=== PATIENT | female | born 2000 | race Asian ===

== ENCOUNTER → 2019-04-01 15:59 | Outpatient (CLI) | payer OTHER, SELFPAY | PROVIDERS: PCP Family Medicine; Visit Provider Physician Assistant | DX: J02.9 Acute pharyngitis, unspecified (principal) | CPT/HCPCS: 87070 ==

== ENCOUNTER → 2020-09-17 13:47 | Outpatient (CLI) | payer OTHER, SELFPAY ==
[2020-09-20 07:48] LABS: COVID19 Sendout Not Detected (Not Detect)
== END ==
PROVIDERS: PCP Family Medicine; Visit Provider Physician Assistant
DX: Z11.59 Encounter for screening for other viral diseases (principal)
CPT/HCPCS: 87635

== ENCOUNTER → 2021-03-04 13:54 | Outpatient (CLI) | payer OTHER, SELFPAY ==
[2021-03-04] MEDS: COVID-19 VACC #1, MRNA(MOD) 100 MCG/0.5 ML VIAL IM (14:04)
== END ==
PROVIDERS: PCP Family Medicine; Visit Provider Internal Medicine
DX: Z23 Encounter for immunization (principal)
CPT/HCPCS: 0011A; 91301

== ENCOUNTER → 2021-04-01 13:12 | Outpatient (CLI) | payer OTHER, SELFPAY ==
[2021-04-01] MEDS: COVID-19 VACC #2, MRNA(MOD) 100 MCG/0.5 ML VIAL IM (13:21)
== END ==
PROVIDERS: PCP Family Medicine; Visit Provider Internal Medicine
DX: Z23 Encounter for immunization (principal)
CPT/HCPCS: 0012A; 91301

== ENCOUNTER → 2021-09-01 15:14 | Outpatient (CLI) | payer OTHER, SELFPAY | PROVIDERS: Referring Provider Internal Medicine; Visit Provider Internal Medicine | DX: Z23 Encounter for immunization (principal) | CPT/HCPCS: 90471; 90686 ==

== ENCOUNTER 2021-11-22 20:19 | Emergency (ER) | payer OTHER, SELFPAY ==
[2021-11-22 20:29] VITALS: BP 124/78; PULSE 112; RESP 17; TEMP 36.2; O2SAT 98; BMI 44.2
[2021-11-22 21:05] LABS: UR Morphine/Opiate cutoff 300 Negative (Negative); Ur Creatinine Normal (Normal); Ur Specific Gravity Normal (Normal); Urine Amphetamines Negative (Negative); Urine Barbiturates Negative (Negative); Urine Benzodiazepines Negative (Negative); Urine Cocaine Negative (Negative); Urine MDMA Negative (Negative); Urine Methadone Negative (Negative); Urine Methamphetamines Negative (Negative); Urine Oxycodone Negative (Negative); Urine Phencyclidine Negative (Negative); Urine Tetrahydrocannabinol Negative (Negative); Urine Tricyclic Antidepressant Negative (Negative); Urine pH Normal (Normal)
[2021-11-22 21:07] LABS: Add Manual Diff / Slide Review NO; Basophils Absolute Auto 100 /uL (0-100); Basophils Percent Auto 0.4 % (0-2); Eosinophils Absolute Auto 100 /uL (0-450); Hematocrit 42.4 % (36-46); Hemoglobin 14.2 g/dL (12.0-16.0); Lymphocytes Absolute Auto 3700 /uL (1100-4500); Lymphocytes Percent Auto 26.5 % (25-40); Mean Corpuscular HGB Conc 33.5 % (30-36); Mean Corpuscular Volume 83.5 fL (80-100); Monocytes Absolute Auto 1000 /uL (0-900); Monocytes Percent Auto 6.9 % (3-14); Neutrophils Absolute Auto 9000 /uL (1500-7000); Neutrophils Percent Auto 65.2 % (50-75); Platelet Count 292 X10^3/uL (150-400); Red Blood Cell Count 5.08 X10^6/uL (4.0-5.2); Red Cell Distribution Width 13.9 % (11.6-14.8); White Blood Cell Count 13.8 X10^3/uL (4.5-11.0)
[2021-11-22 21:17] LABS: Acetaminophen < 10 ug/mL (10-30); Alanine Aminotransferase 23 IU/L (<35); Albumin 4.5 g/dL (3.5-5.0); Albumin Globulin Ratio 1.4 (1.0-2.8); Alkaline Phosphatase 78 U/L (38-126); Aspartate Aminotransferase 22 IU/L (14-36); BUN Creatinine Ratio 15.1 (6-22); Bilirubin Total 0.6 mg/dL (0.2-1.3); Blood Urea Nitrogen 13 mg/dL (7-17); Calcium 9.5 mg/dL (8.4-10.2); Carbon Dioxide 29 mmol/L (22-32); Chloride 102 mmol/L (98-107); Estimated Glomerular Filt Rate > 60.0 mL/min (>60); Ethanol (ETOH) < 10 mg/dL; Globulin 3.2 g/dL (1.7-4.1); Glucose 83 mg/dL (70-100); HEMOLYSIS < 15 (0-50); Potassium 4.2 mmol/L (3.4-5.1); Salicylate < 1.0 mg/dL (<20); Sodium 140 mmol/L (137-145); Total Protein 7.7 g/dL (6.3-8.2)
[2021-11-22 21:21] LABS: COVID19 -Nasal RAPID Negative (Negative)
[2021-11-22 21:51] LABS: Thyroid Stimulating Hormone 1.73 uIU/mL (0.47-4.68)
--- NOTE | 2021-11-22 22:02 | ED_ITS ---
HPI - Psych <Kb Parrish DO - Last Filed: 11/26/21 06:59> General Chief Complaint: Psychiatric Symptoms Stated Complaint: sent by physician for mental health Time Seen by Provider: 11/22/21 21:47 Source: patient Mode of arrival: Ambulatory History of Present Illness HPI Narrative: Patient is a 21-year-old female. Does have a history of depression. Arrives to the emergency department today for evaluation of worsening depression and suicidal ideation. She was sent by her provider. She states that over the past couple days there was an event that she would not specifically elaborate on that made her underlying issues worsen. She states that she does have a plan to kill herself and that would be to walk-in to the water or jump off of a bridge. She has tried to cut herself an attempt to hurt herself in the past. She denies any alcohol. Denies any change in medications. Denies any drugs. No marijuana. She has medications for her depression that she states she takes on a daily basis and then another medication that she takes as needed. According to her medication list she is on duloxetine daily. And has hydroxyzine to take as needed. She has been doing the hydroxyzine more often recently. She he is here voluntarily. She states that she does not feel safe at home and is seeking [facility] admission. Related Data Previous Rx's Medication Instructions Recorded hydroxyzine pamoate 25 mg capsule 25 mg PO BIDP PRN #15 cap 10/12/20 duloxetine 60 mg capsule,delayed 60 mg PO DAILY #90 cap 07/08/21 release Allergies Allergy/AdvReac Type Severity Reaction Status Date / Time No Known Drug Allergies Allergy Verified 09/30/21 11:02 Review of Systems <Kb Parrish DO - Last Filed: 11/26/21 06:59> Cardiovascular Cardiovascular: Reports system reviewed and no additional complaints, except as documented Respiratory Respiratory: Reports system reviewed and no additional complaints, except as documented Gastrointestinal Gastrointestinal: Reports system reviewed and no additional complaints, except as documented Psychiatric Psychiatric: Reports system reviewed and no additional complaints, except as documented Patient History <Kb Parrish DO - Last Filed: 11/26/21 06:59> Medical History Autism spectrum disorder Excessive daytime sleepiness Generalized anxiety disorder Major depressive disorder, recurrent, unspecified Morbid obesity with body mass index (BMI) of 40.0 to 49.9 Nocturnal hypoxemia Obstructive sleep apnea (~08/14/20) Snoring Social phobia Family History Father Loud snoring Mother Depression Anxiety Family/Other Loud snoring Sleep apnea Obesity Anxiety ADD (attention deficit disorder) Social History Smoking Status: Never smoker Smoking Status: Never smoker Substance Use Type: does not use Exam <Kb Parrish DO - Last Filed: 11/26/21 06:59> Initial Vital Signs Initial Vital Signs: Vital Signs Temperature 97.1 F L 11/22/21 20:29 Pulse Rate 112 H 11/22/21 20:29 Respiratory Rate 17 11/22/21 20:29 Blood Pressure 124/78 11/22/21 20:29 Pulse Oximetry 98 11/22/21 20:29 HENMT Head: normal to inspection and normocephalic Resp Effort & Inspection: normal respiratory effort Cardio Rate: regular rate Skin General: no rashes or lesions noted Neuro General: patient alert, patient awake, patient oriented x3 and moves all extremities Extrem General: normal to inspection Psych Appearance: grossly normal and well kempt Affect: sad Thought Content: suicidality <Edgar Jama MD - Last Filed: 11/28/21 12:34> Initial Vital Signs Initial Vital Signs: Vital Signs Temperature 97.1 F L 11/22/21 20:29 Pulse Rate 112 H 11/22/21 20:29 Respiratory Rate 17 11/22/21 20:29 Blood Pressure 124/78 11/22/21 20:29 Pulse Oximetry 98 11/22/21 20:29 <Koffi Arriaga DO - Last Filed: 11/24/21 05:05> Initial Vital Signs Initial Vital Signs: Vital Signs Temperature 97.1 F L 11/22/21 20:29 Pulse Rate 112 H 11/22/21 20:29 Respiratory Rate 17 11/22/21 20:29 Blood Pressure 124/78 11/22/21 20:29 Pulse Oximetry 98 11/22/21 20:29 Course <Kb Parrish DO - Last Filed: 11/26/21 06:59> Orders Ordered: Discontinued Medications Duloxetine HCl (Duloxetine 30 Mg Capsule) 60 mg PO DAILY [facility] Last Admin: 11/23/21 19:19 Dose: 60 mg Documented by: JUDITH Hydroxyzine Pamoate (Hydroxyzine Pamoate 25 Mg Capsule) 25 mg PO BID [facility] Last Admin: 11/23/21 20:58 Dose: Not Given Documented by: Admin: 11/23/21 19:19 Dose: 25 mg Documented by: JUDITH Vital Signs Vital signs: Vital Signs - 8 hr 11/23/21 00:26 Pulse Rate 78 Respiratory Rate 16 Blood Pressure 136/71 Pulse Oximetry 100 <Edgar Jama MD - Last Filed: 11/28/21 12:34> Course Course Narrative: 7:00 a.m.. Sign out from Dr. Parrish at this time awaiting social Work e valuation. Patient has been cooperative. No medications required overnight. Orders Ordered: Discontinued Medications Duloxetine HCl (Duloxetine 30 Mg Capsule) 60 mg PO DAILY [facility] Last Admin: 11/23/21 19:19 Dose: 60 mg Documented by: JUDITH Hydroxyzine Pamoate (Hydroxyzine Pamoate 25 Mg Capsule) 25 mg PO BID [facility] Last Admin: 11/23/21 20:58 Dose: Not Given Documented by: Admin: 11/23/21 19:19 Dose: 25 mg Documented by: JUDITH Vital Signs Vital signs: Vital Signs - 8 hr 11/23/21 00:26 Pulse Rate 78 Respiratory Rate 16 Blood Pressure 136/71 Pulse Oximetry 100 <Koffi Arriaga DO - Last Filed: 11/24/21 05:05> Course Course Narrative: 7:00 a.m.. Sign out from Dr. Parrish at this time awaiting social Work evaluation. Patient has been cooperative. No medications required overnight. 1800 (Bart) -received in sign-out from Dr. Jama. Awaiting placement at receiving psychiatric facility ([facility]). Resting comfortably, understands and agrees with the plan Orders Ordered: Discontinued Medications Duloxetine HCl (Duloxetine 30 Mg Capsule) 60 mg PO DAILY [facility] Last Admin: 11/23/21 19:19 Dose: 60 mg Documented by: JUDITH Hydroxyzine Pamoate (Hydroxyzine Pamoate 25 Mg Capsule) 25 mg PO BID [facility] Last Admin: 11/23/21 20:58 Dose: Not Given Documented by: Admin: 11/23/21 19:19 Dose: 25 mg Documented by: JUDITH Vital Signs Vital signs: Vital Signs - 8 hr 11/23/21 00:26 Pulse Rate 78 Respiratory Rate 16 Blood Pressure 136/71 Pulse Oximetry 100 MDM - Psych <Kb Parrish DO - Last Filed: 11/26/21 06:59> Medical Records Attestation: I reviewed the patient's medical records. Lab Data Result diagrams: 11/22/21 20:55 11/22/21 20:55 Labs: Lab Results 11/22/21 11/22/21 11/22/21 Range/Units 20:53 20:55 20:55 WBC 13.8 H (4.5-11.0) X10^3/uL RBC 5.08 (4.0-5.2) X10^6/uL Hgb 14.2 (12.0-16.0) g/dL Hct 42.4 (36-46) % MCV 83.5 (80-100) fL MCH 28.0 (26-34) PG MCHC 33.5 (30-36) % RDW 13.9 (11.6-14.8) % Plt Count 292 (150-400) X10^3/uL Neut % (Auto) 65.2 (50-75) % Lymph % (Auto) 26.5 (25-40) % [place] % (Auto) 6.9 (3-14) % Eos % (Auto) 1.0 L (2-4) % Baso % (Auto) 0.4 (0-2) % Neut # (Auto) 9000 H (1564-0290) /uL Lymph # (Auto) 3700 (4437-0643) /uL [place] # (Auto) 1000 H (0-900) /uL Eos # (Auto) 100 (0-450) /uL Baso # (Auto) 100 (0-100) /uL Sodium 140 (137-145) mmol/L Potassium 4.2 (3.4-5.1) mmol/L Chloride 102 (98-107) mmol/L Carbon Dioxide 29 (22-32) mmol/L BUN 13 (7-17) mg/dL Creatinine 0.86 (0.52-1.04) mg/dL Estimated GFR > 60.0 (>60) mL/min BUN/Creatinine Ratio 15.1 (6-22) Glucose 83 (70-100) mg/dL Calcium 9.5 (8.4-10.2) mg/dL Total Bilirubin 0.6 (0.2-1.3) mg/dL AST 22 (14-36) IU/L ALT 23 (<35) IU/L Alkaline Phosphatase 78 (38-126) U/L Total Protein 7.7 (6.3-8.2) g/dL Albumin 4.5 (3.5-5.0) g/dL Globulin 3.2 (1.7-4.1) g/dL Albumin/Globulin Ratio 1.4 (1.0-2.8) TSH (0.47-4.68) uIU/mL Free T4 (0.78-2.19) ng/dL Salicylates < 1.0 (<20) mg/dL U Opiates 300ng/mL cut Negative (Negative) Ur Oxycodone Screen Negative (Negative) Urine Methadone Screen Negative (Negative) Acetaminophen < 10 L (10-30) ug/mL Ur Barbiturates Screen Negative (Negative) U Tricyclic Antidepress Negative (Negative) Ur Phencyclidine Scrn Negative (Negative) Ur Amphetamines Screen Negative (Negative) U Methamphetamines Scrn Negative (Negative) Ur MDMA Scrn (Ecstasy) Negative (Negative) U Benzodiazepines Scrn Negative (Negative) Urine Cocaine Screen Negative (Negative) U Marijuana (THC) Screen Negative (Negative) Ethyl Alcohol < 10 ( - 10) mg/dL SARS-CoV-2 (PCR) (Negative) 11/22/21 11/22/21 Range/Units 20:55 20:55 WBC (4.5-11.0) X10^3/uL RBC (4.0-5.2) X10^6/uL Hgb (12.0-16.0) g/dL Hct (36-46) % MCV (80-100) fL MCH (26-34) PG MCHC (30-36) % RDW (11.6-14.8) % Plt Count (150-400) X10^3/uL Neut % (Auto) (50-75) % Lymph % (Auto) (25-40) % [place] % (Auto) (3-14) % Eos % (Auto) (2-4) % Baso % (Auto) (0-2) % Neut # (Auto) (7000-4311) /uL Lymph # (Auto) (3449-4865) /uL [place] # (Auto) (0-900) /uL Eos # (Auto) (0-450) /uL Baso # (Auto) (0-100) /uL Sodium (137-145) mmol/L Potassium (3.4-5.1) mmol/L Chloride (98-107) mmol/L Carbon Dioxide (22-32) mmol/L BUN (7-17) mg/dL Creatinine (0.52-1.04) mg/dL Estimated GFR (>60) mL/min BUN/Creatinine Ratio (6-22) Glucose (70-100) mg/dL Calcium (8.4-10.2) mg/dL Total Bilirubin (0.2-1.3) mg/dL AST (14-36) IU/L ALT (<35) IU/L Alkaline Phosphatase (38-126) U/L Total Protein (6.3-8.2) g/dL Albumin (3.5-5.0) g/dL Globulin (1.7-4.1) g/dL Albumin/Globulin Ratio (1.0-2.8) TSH 1.73 (0.47-4.68) uIU/mL Free T4 0.96 (0.78-2.19) ng/dL Salicylates (<20) mg/dL U Opiates 300ng/mL cut (Negative) Ur Oxycodone Screen (Negative) Urine Methadone Screen (Negative) Acetaminophen (10-30) ug/mL Ur Barbiturates Screen (Negative) U Tricyclic Antidepress (Negative) Ur Phencyclidine Scrn (Negative) Ur Amphetamines Screen (Negative) U Methamphetamines Scrn (Negative) Ur MDMA Scrn (Ecstasy) (Negative) U Benzodiazepines Scrn (Negative) Urine Cocaine Screen (Negative) U Marijuana (THC) Screen (Negative) Ethyl Alcohol ( - 10) mg/dL SARS-CoV-2 (PCR) Negative (Negative) Point of Care Testing Test Results Negative Urine Dip Bedside Urine Glucose Negative Bedside Urine Bilirubin - Negative Bedside Urine Ketone +/- 5 Urine Specific [place] 1.025 Bedside Urine Occult Blood - Negative Bedside Urine pH 6.0 Bedside Urine Protein - Negative Bedside Urine Urobilinogen - Negative Bedside Urine Nitrite - Negative Bedside Urine Leukocytes - Negative Esterase MDM Narrative Medical decision making narrative: Patient is medically cleared. Social Work consult placed. Patient is voluntary seeking admission. Patient stable overnight. No medications administered. Care turned over to Dr. Jama to follow-up and disposition. <Edgar Jama MD - Last Filed: 11/28/21 12:34> Lab Data Labs: Lab Results 11/22/21 11/22/21 11/22/21 Range/Units 20:53 20:55 20:55 WBC 13.8 H (4.5-11.0) X10^3/uL RBC 5.08 (4.0-5.2) X10^6/uL Hgb 14.2 (12.0-16.0) g/dL Hct 42.4 (36-46) % MCV 83.5 (80-100) fL MCH 28.0 (26-34) PG MCHC 33.5 (30-36) % RDW 13.9 (11.6-14.8) % Plt Count 292 (150-400) X10^3/uL Neut % (Auto) 65.2 (50-75) % Lymph % (Auto) 26.5 (25-40) % [place] % (Auto) 6.9 (3-14) % Eos % (Auto) 1.0 L (2-4) % Baso % (Auto) 0.4 (0-2) % Neut # (Auto) 9000 H (1539-9382) /uL Lymph # (Auto) 3700 (9747-0823) /uL [place] # (Auto) 1000 H (0-900) /uL Eos # (Auto) 100 (0-450) /uL Baso # (Auto) 100 (0-100) /uL Sodium 140 (137-145) mmol/L Potassium 4.2 (3.4-5.1) mmol/L Chloride 102 (98-107) mmol/L Carbon Dioxide 29 (22-32) mmol/L BUN 13 (7-17) mg/dL Creatinine 0.86 (0.52-1.04) mg/dL Estimated GFR > 60.0 (>60) mL/min BUN/Creatinine Ratio 15.1 (6-22) Glucose 83 (70-100) mg/dL Calcium 9.5 (8.4-10.2) mg/dL Total Bilirubin 0.6 (0.2-1.3) mg/dL AST 22 (14-36) IU/L ALT 23 (<35) IU/L Alkaline Phosphatase 78 (38-126) U/L Total Protein 7.7 (6.3-8.2) g/dL Albumin 4.5 (3.5-5.0) g/dL Globulin 3.2 (1.7-4.1) g/dL Albumin/Globulin Ratio 1.4 (1.0-2.8) TSH (0.47-4.68) uIU/mL Free T4 (0.78-2.19) ng/dL Salicylates < 1.0 (<20) mg/dL U Opiates 300ng/mL cut Negative (Negative) Ur Oxycodone Screen Negative (Negative) Urine Methadone Screen Negative (Negative) Acetaminophen < 10 L (10-30) ug/mL Ur Barbiturates Screen Negative (Negative) U Tricyclic Antidepress Negative (Negative) Ur Phencyclidine Scrn Negative (Negative) Ur Amphetamines Screen Negative (Negative) U Methamphetamines Scrn Negative (Negative) Ur MDMA Scrn (Ecstasy) Negative (Negative) U Benzodiazepines Scrn Negative (Negative) Urine Cocaine Screen Negative (Negative) U Marijuana (THC) Screen Negative (Negative) Ethyl Alcohol < 10 ( - 10) mg/dL SARS-CoV-2 (PCR) (Negative) 11/22/21 11/22/21 Range/Units 20:55 20:55 WBC (4.5-11.0) X10^3/uL RBC (4.0-5.2) X10^6/uL Hgb (12.0-16.0) g/dL Hct (36-46) % MCV (80-100) fL MCH (26-34) PG MCHC (30-36) % RDW (11.6-14.8) % Plt Count (150-400) X10^3/uL Neut % (Auto) (50-75) % Lymph % (Auto) (25-40) % [place] % (Auto) (3-14) % Eos % (Auto) (2-4) % Baso % (Auto) (0-2) % Neut # (Auto) (3265-0620) /uL Lymph # (Auto) (7739-9382) /uL [place] # (Auto) (0-900) /uL Eos # (Auto) (0-450) /uL Baso # (Auto) (0-100) /uL Sodium (137-145) mmol/L Potassium (3.4-5.1) mmol/L Chloride (98-107) mmol/L Carbon Dioxide (22-32) mmol/L BUN (7-17) mg/dL Creatinine (0.52-1.04) mg/dL Estimated GFR (>60) mL/min BUN/Creatinine Ratio (6-22) Glucose (70-100) mg/dL Calcium (8.4-10.2) mg/dL Total Bilirubin (0.2-1.3) mg/dL AST (14-36) IU/L ALT (<35) IU/L Alkaline Phosphatase (38-126) U/L Total Protein (6.3-8.2) g/dL Albumin (3.5-5.0) g/dL Globulin (1.7-4.1) g/dL Albumin/Globulin Ratio (1.0-2.8) TSH 1.73 (0.47-4.68) uIU/mL Free T4 0.96 (0.78-2.19) ng/dL Salicylates (<20) mg/dL U Opiates 300ng/mL cut (Negative) Ur Oxycodone Screen (Negative) Urine Methadone Screen (Negative) Acetaminophen (10-30) ug/mL Ur Barbiturates Screen (Negative) U Tricyclic Antidepress (Negative) Ur Phencyclidine Scrn (Negative) Ur Amphetamines Screen (Negative) U Methamphetamines Scrn (Negative) Ur MDMA Scrn (Ecstasy) (Negative) U Benzodiazepines Scrn (Negative) Urine Cocaine Screen (Negative) U Marijuana (THC) Screen (Negative) Ethyl Alcohol ( - 10) mg/dL SARS-CoV-2 (PCR) Negative (Negative) Point of Care Testing Test Results Negative Urine Dip Bedside Urine Glucose Negative Bedside Urine Bilirubin - Negative Bedside Urine Ketone +/- 5 Urine Specific [place] 1.025 Bedside Urine Occult Blood - Negative Bedside Urine pH 6.0 Bedside Urine Protein - Negative Bedside Urine Urobilinogen - Negative Bedside Urine Nitrite - Negative Bedside Urine Leukocytes - Negative Esterase <Koffi Arriaga DO - Last Filed: 11/24/21 05:05> Lab Data Labs: Lab Results 11/22/21 11/22/21 11/22/21 Range/Units 20:53 20:55 20:55 WBC 13.8 H (4.5-11.0) X10^3/uL RBC 5.08 (4.0-5.2) X10^6/uL Hgb 14.2 (12.0-16.0) g/dL Hct 42.4 (36-46) % MCV 83.5 (80-100) fL MCH 28.0 (26-34) PG MCHC 33.5 (30-36) % RDW 13.9 (11.6-14.8) % Plt Count 292 (150-400) X10^3/uL Neut % (Auto) 65.2 (50-75) % Lymph % (Auto) 26.5 (25-40) % [place] % (Auto) 6.9 (3-14) % Eos % (Auto) 1.0 L (2-4) % Baso % (Auto) 0.4 (0-2) % Neut # (Auto) 9000 H (1033-1106) /uL Lymph # (Auto) 3700 (2554-1609) /uL [place] # (Auto) 1000 H (0-900) /uL Eos # (Auto) 100 (0-450) /uL Baso # (Auto) 100 (0-100) /uL Sodium 140 (137-145) mmol/L Potassium 4.2 (3.4-5.1) mmol/L Chloride 102 (98-107) mmol/L Carbon Dioxide 29 (22-32) mmol/L BUN 13 (7-17) mg/dL Creatinine 0.86 (0.52-1.04) mg/dL Estimated GFR > 60.0 (>60) mL/min BUN/Creatinine Ratio 15.1 (6-22) Glucose 83 (70-100) mg/dL Calcium 9.5 (8.4-10.2) mg/dL Total Bilirubin 0.6 (0.2-1.3) mg/dL AST 22 (14-36) IU/L ALT 23 (<35) IU/L Alkaline Phosphatase 78 (38-126) U/L Total Protein 7.7 (6.3-8.2) g/dL Albumin 4.5 (3.5-5.0) g/dL Globulin 3.2 (1.7-4.1) g/dL Albumin/Globulin Ratio 1.4 (1.0-2.8) TSH (0.47-4.68) uIU/mL Free T4 (0.78-2.19) ng/dL Salicylates < 1.0 (<20) mg/dL U Opiates 300ng/mL cut Negative (Negative) Ur Oxycodone Screen Negative (Negative) Urine Methadone Screen Negative (Negative) Acetaminophen < 10 L (10-30) ug/mL Ur Barbiturates Screen Negative (Negative) U Tricyclic Antidepress Negative (Negative) Ur Phencyclidine Scrn Negative (Negative) Ur Amphetamines Screen Negative (Negative) U Methamphetamines Scrn Negative (Negative) Ur MDMA Scrn (Ecstasy) Negative (Negative) U Benzodiazepines Scrn Negative (Negative) Urine Cocaine Screen Negative (Negative) U Marijuana (THC) Screen Negative (Negative) Ethyl Alcohol < 10 ( - 10) mg/dL SARS-CoV-2 (PCR) (Negative) 11/22/21 11/22/21 Range/Units 20:55 20:55 WBC (4.5-11.0) X10^3/uL RBC (4.0-5.2) X10^6/uL Hgb (12.0-16.0) g/dL Hct (36-46) % MCV (80-100) fL MCH (26-34) PG MCHC (30-36) % RDW (11.6-14.8) % Plt Count (150-400) X10^3/uL Neut % (Auto) (50-75) % Lymph % (Auto) (25-40) % [place] % (Auto) (3-14) % Eos % (Auto) (2-4) % Baso % (Auto) (0-2) % Neut # (Auto) (1109-1867) /uL Lymph # (Auto) (3597-2197) /uL [place] # (Auto) (0-900) /uL Eos # (Auto) (0-450) /uL Baso # (Auto) (0-100) /uL Sodium (137-145) mmol/L Potassium (3.4-5.1) mmol/L Chloride (98-107) mmol/L Carbon Dioxide (22-32) mmol/L BUN (7-17) mg/dL Creatinine (0.52-1.04) mg/dL Estimated GFR (>60) mL/min BUN/Creatinine Ratio (6-22) Glucose (70-100) mg/dL Calcium (8.4-10.2) mg/dL Total Bilirubin (0.2-1.3) mg/dL AST (14-36) IU/L ALT (<35) IU/L Alkaline Phosphatase (38-126) U/L Total Protein (6.3-8.2) g/dL Albumin (3.5-5.0) g/dL Globulin (1.7-4.1) g/dL Albumin/Globulin Ratio (1.0-2.8) TSH 1.73 (0.47-4.68) uIU/mL Free T4 0.96 (0.78-2.19) ng/dL Salicylates (<20) mg/dL U Opiates 300ng/mL cut (Negative) Ur Oxycodone Screen (Negative) Urine Methadone Screen (Negative) Acetaminophen (10-30) ug/mL Ur Barbiturates Screen (Negative) U Tricyclic Antidepress (Negative) Ur Phencyclidine Scrn (Negative) Ur Amphetamines Screen (Negative) U Methamphetamines Scrn (Negative) Ur MDMA Scrn (Ecstasy) (Negative) U Benzodiazepines Scrn (Negative) Urine Cocaine Screen (Negative) U Marijuana (THC) Screen (Negative) Ethyl Alcohol ( - 10) mg/dL SARS-CoV-2 (PCR) Negative (Negative) Point of Care Testing Test Results Negative Urine Dip Bedside Urine Glucose Negative Bedside Urine Bilirubin - Negative Bedside Urine Ketone +/- 5 Urine Specific [place] 1.025 Bedside Urine Occult Blood - Negative Bedside Urine pH 6.0 Bedside Urine Protein - Negative Bedside Urine Urobilinogen - Negative Bedside Urine Nitrite - Negative Bedside Urine Leukocytes - Negative Esterase <Koffi Arriaga DO - Last Filed: 11/24/21 05:05> Critical Care Time Critical Care Time: Yes Total Critical Care Time: 45 Attestation: The high probability of a clinically significant, sudden or life threatening deterioration of the [Psych] system(s) required my full and direct attention, intervention and personal management. The aggregate critical care time was [45] minutes. This time is in addition to time spent performing reported procedures but includes the following: [x] Data Review and interpretation [x] Patient assessment and monitoring of vital signs [x] Documentation [x] Medication orders and management Discharge Plan Departure Patient Disposition: Xfer Psychiatric Hosp Clinical Impression: Suicidal ideation
--- NOTE | 2021-11-22 22:34 | PC.NURSE ---
friend at bedside
[2021-11-22 22:40] LABS: Free T4, Direct Thyroxine 0.96 ng/dL (0.78-2.19)
--- NOTE | 2021-11-22 23:19 | PC.NURSE ---
friend at bedside
[2021-11-23 00:26] VITALS: BP 136/71; PULSE 78; RESP 16; O2SAT 100
--- NOTE | 2021-11-23 02:19 | PC.NURSE ---
pt sleeping. friend still at bedside
[2021-11-23 10:21] VITALS: BP 95/51; PULSE 18; RESP 16; TEMP 35.7; O2SAT 96
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
--- NOTE | 2021-11-23 17:36 | PC.NURSE ---
lying in the bed flat, looking at cell phone.
[2021-11-23 18:48] VITALS: BP 102/73; PULSE 83; RESP 18; TEMP 36.8; O2SAT 98
[2021-11-23] MEDS: hydrOXYzine pamoate 25 MG CAPSULE PO (19:19)
[2021-11-23] MEDS: DULOXETINE 30 MG CAPSULE 60 MG PO (19:19)
--- NOTE | 2021-11-23 19:57 | PC.NURSE ---
Patient currently visiting with close friend
== END 2021-11-23 22:35 ==
PROVIDERS: Emergency Medicine; Emergency Provider Emergency Medicine
DX: R45.851 Suicidal ideations (principal); Z20.822 Contact with and (suspected) exposure to COVID-19
CPT/HCPCS: 36415; 80053; 80305; 80320; 80329; 81003; 81025; 84439; 84443; 85025; 87635; 99284; 99291; C9803; G0480

== ENCOUNTER → 2022-11-28 13:57 | Outpatient (CLI) | payer OTHER, SELFPAY ==
[2022-11-28 14:25] LABS: Add Manual Diff / Slide Review NO; Basophils Absolute Auto 100 /uL (0-100); Basophils Percent Auto 0.7 % (0-2); Eosinophils Absolute Auto 300 /uL (0-450); Eosinophils Percent Auto 2.7 % (2-4); Hematocrit 39.8 % (36-46); Hemoglobin 13.4 g/dL (12.0-16.0); Lymphocytes Absolute Auto 2800 /uL (1100-4500); Lymphocytes Percent Auto 29.4 % (25-40); Mean Corpuscular HGB Conc 33.6 % (30-36); Mean Corpuscular Hemoglobin 27.7 PG (26-34); Mean Corpuscular Volume 82.3 fL (80-100); Monocytes Absolute Auto 500 /uL (0-900); Monocytes Percent Auto 5.1 % (3-14); Neutrophils Absolute Auto 5900 /uL (1500-7000); Neutrophils Percent Auto 62.1 % (50-75); Platelet Count 265 X10^3/uL (150-400); Red Blood Cell Count 4.84 X10^6/uL (4.0-5.2); Red Cell Distribution Width 13.6 % (11.6-14.8); White Blood Cell Count 9.5 X10^3/uL (4.5-11.0)
[2022-11-28 14:41] LABS: Alanine Aminotransferase 24 IU/L (<35); Alkaline Phosphatase 82 U/L (38-126); Aspartate Aminotransferase 23 IU/L (14-36); BUN Creatinine Ratio 17.6 (6-22); Bilirubin Total 0.5 mg/dL (0.2-1.3); Blood Urea Nitrogen 13 mg/dL (7-17); Calcium 8.6 mg/dL (8.4-10.2); Carbon Dioxide 27 mmol/L (22-32); Chloride 101 mmol/L (98-107); Cholesterol 160 mg/dL (140-199); Estimated Glomerular Filt Rate > 60 mL/min (>60); Glucose 91 mg/dL (70-100); HDL Cholesterol 44 mg/dL (40-60); HEMOLYSIS < 15 (0-50); LDL Cholesterol Calculated 81 mg/dL (<100); Potassium 4.3 mmol/L (3.4-5.1); Sodium 137 mmol/L (137-145); Total Protein 7.5 g/dL (6.3-8.2); Triglycerides 174 mg/dL (35-150)
[2022-11-28 15:09] LABS: Thyroid Stimulating Hormone 1.09 uIU/mL (0.47-4.68)
[2022-12-01 16:31] LABS: Albumin 4.3 g/dL (3.5-5.0); Albumin Globulin Ratio 1.3 (1.0-2.8); Globulin 3.2 g/dL (1.7-4.1)
== END ==
PROVIDERS: PCP Family Medicine; Referring Provider Family Medicine; Visit Provider Family Medicine
DX: F33.2 Major depressive disorder, recurrent severe without psychotic features (principal); F41.1 Generalized anxiety disorder; F40.10 Social phobia, unspecified; Z13.220 Encounter for screening for lipoid disorders; Z13.29 Encounter for screening for other suspected endocrine disorder; Z79.899 Other long term (current) drug therapy
CPT/HCPCS: 36415; 80053; 80061; 84443; 85025; 90834

== ENCOUNTER → 2023-09-14 12:15 | Outpatient (CLI) | payer OTHER, SELFPAY | PROVIDERS: Referring Provider Family Medicine; Visit Provider Family Medicine | DX: Z23 Encounter for immunization (principal) | CPT/HCPCS: 90471; 90686 ==

== ENCOUNTER → 2023-12-04 18:49 | Outpatient (CLI) | payer OTHER, SELFPAY | PROVIDERS: Visit Provider Nurse Practitioner Family | DX: J02.9 Acute pharyngitis, unspecified (principal) | CPT/HCPCS: 87070 ==

== ENCOUNTER → 2023-12-28 15:48 | Outpatient (CLI) | payer OTHER, SELFPAY ==
[2023-12-28 16:22] LABS: Add Manual Diff / Slide Review NO; Basophils Absolute Auto 100 /uL (0-100); Basophils Percent Auto 0.8 % (0-2); Eosinophils Absolute Auto 400 /uL (0-450); Eosinophils Percent Auto 4.5 % (2-4); Hematocrit 40.5 % (36-46); Hemoglobin 13.6 g/dL (12.0-16.0); Lymphocytes Absolute Auto 3000 /uL (1100-4500); Lymphocytes Percent Auto 33.2 % (25-40); Mean Corpuscular HGB Conc 33.6 % (30-36); Mean Corpuscular Hemoglobin 27.4 PG (26-34); Mean Corpuscular Volume 81.5 fL (80-100); Monocytes Absolute Auto 300 /uL (0-900); Monocytes Percent Auto 3.9 % (3-14); Neutrophils Absolute Auto 5200 /uL (1500-7000); Neutrophils Percent Auto 57.6 % (50-75); Platelet Count 294 X10^3/uL (150-400); Red Blood Cell Count 4.96 X10^6/uL (4.0-5.2); Red Cell Distribution Width 13.5 % (11.6-14.8)
[2023-12-28 17:30] LABS: Hemoglobin A1C% w Est Avg Glu 5.2 % (4.0-6.0)
[2023-12-28 17:57] LABS: Alanine Aminotransferase 23 IU/L (<35); Albumin 3.9 g/dL (3.5-5.0); Albumin Globulin Ratio 1.1 (1.0-2.8); Alkaline Phosphatase 86 U/L (38-126); Aspartate Aminotransferase 24 IU/L (14-36); BUN Creatinine Ratio 12.3 (6-22); Bilirubin Total 0.6 mg/dL (0.2-1.3); Blood Urea Nitrogen 9 mg/dL (7-17); Calcium 8.7 mg/dL (8.4-10.2); Carbon Dioxide 29 mmol/L (22-32); Chloride 103 mmol/L (98-107); Cholesterol 162 mg/dL (140-199); Estimated Glomerular Filt Rate > 60 mL/min (>60); Globulin 3.5 g/dL (1.7-4.1); Glucose 93 mg/dL (70-100); HDL Cholesterol 40 mg/dL (40-60); HEMOLYSIS < 15 (0-50); LDL Cholesterol Calculated 85 mg/dL (<100); Potassium 4.1 mmol/L (3.4-5.1); Sodium 139 mmol/L (137-145); Total Protein 7.4 g/dL (6.3-8.2); Triglycerides 186 mg/dL (35-150)
== END ==
LOC: LAB 15:49
PROVIDERS: PCP Family Medicine; Referring Provider Family Medicine; Visit Provider Family Medicine
DX: F33.2 Major depressive disorder, recurrent severe without psychotic features (principal); E66.01 Morbid (severe) obesity due to excess calories
CPT/HCPCS: 36415; 80053; 80061; 83036; 84443; 85025

== ENCOUNTER → 2024-01-04 13:16 | Outpatient (CLI) | payer OTHER, SELFPAY ==
[2024-01-04 16:22] LABS: Urine N gonorrhoeae NOT DETECTED
[2024-01-04 16:26] LABS: Urine Chlamydia NOT DETECTED
[2024-01-06 04:39] LABS: RPR Screen Non Reactive (Non Reactive)
[2024-01-07 19:47] LABS: HIV 1 & 2 Ab/Ag 4th Gen Combo NEGATIVE (NEGATIVE); Hep C Virus Ab w/Reflex Quant NEGATIVE s/c (NEGATIVE)
== END ==
PROVIDERS: PCP Family Medicine; Referring Provider Family Medicine; Visit Provider Family Medicine
DX: Z72.51 High risk heterosexual behavior (principal)
CPT/HCPCS: 36415; 86592; 86803; 87389; 87491; 87591

== ENCOUNTER → 2024-02-04 10:13 | Outpatient (CLI) | payer OTHER, SELFPAY ==
--- NOTE | 2024-02-04 10:14 | DI.US.S_ITS ---
PROCEDURE: US PELVIC COMPLETE INDICATIONS: DYSPARUNIA TECHNIQUE: Real-time scanning was performed of the pelvic organs, with image documentation. Additional endovaginal scanning was necessary due to incomplete visualization of the adnexal and endometrial structures by transabdominal scanning. COMPARISON: None. FINDINGS: Uterus: Uterus is anteverted and normal in size at 5.4 x 2.4 x 3.7 cm. The myometrium is homogeneous. The endometrium measures 6.3 mm combined thickness. No increased vascular flow by color Doppler imaging. Ovaries: The right ovary measures 2.8 x 2.2 x 2.6 cm, with a calculated ovarian volume of 8.1 cc. The left ovary measures 2.2 x 2.3 x 1.8 cm, with a calculated ovarian volume of 4.5 cc. Normal right ovarian follicular echotexture. Single 1.4 cm dominant follicle in the left ovary. No adnexal masses are seen. Other: No pathologic free abdominal or pelvic fluid. IMPRESSION: Normal pelvic ultrasound. We strive to produce accurate, complete, and clear reports of imaging services. To assist us in improving patient care, this report was composed using standard report templates and voice recognition software. Therefore, it may contain abnormal punctuation, insertions and/or omissions. Occasional wrong-word or sound-alike substitutions may occur. Though we review the report and make efforts to correct it, we do recommend that the report be read carefully in proper context to recognize any text inaccuracies. Dictated by: Yakelin Kiran M.D. on 02/04/2024 at 11:59 Approved by: Yakelin Kiran M.D. on 02/04/2024 at 12:01
== END ==
PROVIDERS: PCP Family Medicine; Referring Provider Family Medicine; Visit Provider Family Medicine
DX: R10.2 Pelvic and perineal pain (principal)
CPT/HCPCS: 76830; 76856

== ENCOUNTER → 2024-04-15 15:31 | Outpatient (CLI) | payer OTHER, SELFPAY ==
--- NOTE | 2024-04-15 15:32 | DI.RAD.S_ITS ---
PROCEDURE: XR KNEE LT 3V INDICATIONS: anterolateral joint pain/tenderness 2 months TECHNIQUE: 3 views of the knee were acquired. COMPARISON: None. FINDINGS: Bones: No displaced fracture or dislocation. Soft tissues: There might be a knee joint effusion. IMPRESSION: No acute osseous abnormality. Possible knee joint effusion. If there is high concern for further derangement, consider MRI evaluation. Dictated by: Theo Mathur M.D. on 04/15/2024 at 16:49 Approved by: Theo Mathur M.D. on 04/15/2024 at 16:50
== END ==
PROVIDERS: PCP Family Medicine; Referring Provider Student in an Organized Health Care Education/Training Program; Visit Provider Student in an Organized Health Care Education/Training Program
DX: S83.92XA Sprain of unspecified site of left knee, initial encounter (principal); X58.XXXA Exposure to other specified factors, initial encounter
CPT/HCPCS: 73562

== ENCOUNTER → 2024-06-19 13:01 | Outpatient (CLI) | payer OTHER, SELFPAY ==
--- NOTE | 2024-06-19 13:03 | DI.RAD.S_ITS ---
PROCEDURE: XR ANKLE LT MIN 3V INDICATIONS: pain after fall TECHNIQUE: 3 views of the ankle were acquired. COMPARISON: None. FINDINGS: Bones: Bone alignment is normal. No acute dislocation. Along the tip of the medial malleolus this is a small avulsion fracture. Margins are irregular in this region indicating an acute process. Soft tissues: Soft tissue swelling noted the ankle. IMPRESSION: Small avulsion fracture of the tip of the medial malleolus. Dictated by: aPul Mclean M.D. on 06/19/2024 at 13:33 Approved by: Paul Mclean M.D. on 06/19/2024 at 13:36
--- NOTE | 2024-06-19 13:03 | DI.RAD.S_ITS ---
PROCEDURE: XR KNEE LT 3V INDICATIONS: pain after fall TECHNIQUE: 3 views of the knee were acquired. COMPARISON: [facility], CR, XR KNEE LT 3V, 04/15/2024, 14:51. FINDINGS: Bones: No fractures or dislocations. No suspicious bony lesions. Soft tissues: No joint effusion. No suspicious soft tissue calcifications. IMPRESSION: No acute bony abnormality. Dictated by: Paul Mclean M.D. on 06/19/2024 at 13:36 Approved by: Paul Mclean M.D. on 06/19/2024 at 13:39
== END ==
PROVIDERS: Family Provider Family Medicine; PCP Family Medicine; Referring Provider Physician Assistant Medical; Visit Provider Physician Assistant Medical
DX: S82.52XA Displaced fracture of medial malleolus of left tibia, initial encounter for closed fracture (principal); S89.92XA Unspecified injury of left lower leg, initial encounter; M25.579 Pain in unspecified ankle and joints of unspecified foot; W19.XXXA Unspecified fall, initial encounter
CPT/HCPCS: 73562; 73610

== ENCOUNTER 2024-09-03 11:30 | Outpatient (RCR) | payer OTHER, SELFPAY ==
--- NOTE | 2024-07-25 15:55 | PT.OIE ---
Current Diagnoses Pain in left knee (07/25/24) Unspecified dyspareunia (07/25/24) Other lack of coordination (07/25/24) Weakness (07/25/24) Unspecified injury of left lower leg, subsequent encounter (07/25/24) Past Medical History (Last Reviewed 04/15/24 @ 19:24 by Fang Winters PA-C) Autism spectrum disorder Excessive daytime sleepiness Generalized anxiety disorder LGSIL (low grade squamous intraepithelial dysplasia) Major depressive disorder, recurrent, unspecified Morbid obesity with body mass index (BMI) of 40.0 to 49.9 Nocturnal hypoxemia Obstructive sleep apnea (~08/14/20) Popping of both knee joints Snoring Social phobia Visit Care Team Role Provider Type Diamond Plascencia MD Attending Provider Physician Family Provider Primary Care Provider Referring Provider Specialty: Family Practice TABLE WORKER PACKAGER Address: [address] [place] [address] Email: [email or web address] Physical Therapy Initial Evaluation PT-OP-A Visit Information Start: 07/25/24 07:25 Freq: Status: Active Protocol: Document 07/25/24 10:33 NM (Rec: 07/25/24 16:22 NM [id number]) Out-Patient Physical Therapy Visit Information Visit Information Visit Type Initial Evaluation Visit Start Time 10:35 Visit Stop Time 11:15 Visit Number 60 Evaluation Information Evaluation Date 07/25/24 Precautions Precautions Hx of anxiety and depression PT-OP-B Current Condition Start: 07/25/24 07:25 Freq: Status: Active Protocol: Document 07/25/24 10:33 NM (Rec: 07/25/24 11:23 NM [id number]) Current Condition History of Current Condition Onset Date June 2024 History of Current Condition Pt presents with L knee pain. She reports pain with going up stairs, squatting, possible feeling like it will give out. She had a soccer injury a few weeks ago/a month ago (in June); she reports that she twisted her knee, then fell. States unable immediately weight bear. She went to the ED, did Xray and states all was fine. She reports that she was put on crutches and wore a brace (stabilization brace extension). She also reports that she had a second injury while dancing to music as few weeks later, when she stood on her L leg while kicking with her R leg, when she fell. She reports that she suddenly fell but does not know if it buckled/gave out. States that she walked using crutches and went to walk in clinic, but told to ice and rest. Pt is unsure when she stopped wearing the brace; she stopped wearing the brace/using crutches after about a week or two. Had both L knee and ankle Xray. States that MD told her she had a small fracture to very tip of medial malleolus, told to stay off of it but not given boot; reports not painful. Pt reports that she has not had a MRI or any further assessment . Pt reports that she has crackling in her knee (non- painful), no clicking/popping/ clicking/buckling. Reports that occasionally her L leg locks up when walking up stairs, but states quickly resolves without pain or other limitations. No pain when getting up from a chair, walking, standing. No pain with twisting motion in knee. Pt reports that she is unable to work due to pain, states nervous to do work. Pt reports that she has had knee pain even before her original JOSE ANTONIO, at least a year. States that her pain originally began when she extended it while walking , clicked, and it hurt for while; states went away. Thinks that it is because of her weight. States not performing any regular exercise Prior Treatments and Tests L knee radiograph 07/05: no acute bony abnormality L knee radiograph 05/05: no acute osseous abnormality, possible knee joint effusion L ankle radiograph 07/05: small avulsion fracture of the tip of the medial malleolus No previous PT for any condition Treatment Goals Patient/Caregiver Goals knee pain decreased PT-OP-C Subjective Start: 07/25/24 07:25 Freq: Status: Active Protocol: Document 07/25/24 10:33 NM (Rec: 07/25/24 11:23 NM [id number]) OP-PT Subjective Patient Comments Patient Comments pt agrees to participate in evaluation Patient Questionnaires Lower Extremity Functional Scale LEFS Score 47/80 OP-PT Pain Assessment Location L knee Pain Location Details anterior knee Intensity 3 Scale Used Numeric (0 - 10) Description Aching,Dull Frequency Occasional Pain Duration seconds Pain Aggravating Factors Standing,Stair Climbing Pain Alleviating Factors Rest PT-OP-D Balance Start: 07/25/24 07:25 Freq: Status: Active Protocol: Document 07/25/24 10:33 NM (Rec: 07/25/24 11:23 NM [id number]) Balance Tests Single Limb Standing Single Limb- Right 20 sec Single Limb- Left 5 sec (reports mild ankle pain 1/10 w/ stance) PT-OP-E Functional Tests Start: 07/25/24 07:25 Freq: Status: Active Protocol: Document 07/25/24 10:33 NM (Rec: 07/25/24 11:23 NM [id number]) Functional Tests Squat Test Score 10 Comments inc ant translation PT-OP-F Manual Assessment Start: 07/25/24 07:25 Freq: Status: Active Protocol: Document 07/25/24 10:33 NM (Rec: 07/25/24 16:22 NM [id number]) Manual Assessments Soft Tissue Assessment Soft Tissue Mobility Assessment Decreased hamstring length and heel cord length B, L>R Joint Mobility Assessment Joint Mobility Assessment Hypermobility of B knees (R>L) . Audible and palpable crepitus B. B patella located laterally, demos lateral tracking Other Manual Assessments Other Manual Assessments No palpation along L medial or lateral malleolus or along 5th metatarsal or 1st metatarsal and navicular bone No sharp pain or increased discomfort with vibration testing along L ankle/foot bony prominences and L patella PT-OP-G Mobility & Gait Start: 07/25/24 07:25 Freq: Status: Active Protocol: Document 07/25/24 10:33 NM (Rec: 07/25/24 16:22 NM [id number]) OP Gait Assessment Gait Distance (Feet) 180 Gait Deviations General Gait Pattern Wide Based Gait Factors Limiting Gait Function Factors Limiting Gait Function Decreased Activity Tolerance, Decreased Strength,Limited Range of Motion,Poor Balance Comments Gait Comments Mild decrease in stance time on LLE, no pain reported. Demos wide based stance and gait, with B hip ER and slight pronation bilaterally Stair Climbing Evaluation Evaluation Level of Assist On Stairs Independent Devices Stair Climbing Assistive Devices None Technique/Endurance Stair Climbing Direction Ascend and Descend Stair Climbing Technique Step Over Step Number of Steps Climbed 4 Stair Climbing Set # Repetitions (reps) 2 Comments Stair Climbing Comments Mild pain reported in L anterior knee and stiffness in L ankle anteriorly. Demos knee valgus, decreased tibial translation forward and decreased ankle dorsiflexion PT-OP-J Posture/Palpation/Skin Start: 07/25/24 07:25 Freq: Status: Active Protocol: Document 07/25/24 10:33 NM (Rec: 07/25/24 16:22 NM [id number]) Posture Evaluation Position Standing Head/C-Spine Posture Forward Head Arm Posture (L) Internally Rotated,(R) Internally Rotated Pelvis Posture Anteriorly Tilted Weight Distribution Weight Shifted Right Hip Posture (L) Externally Rotated,(R) Externally Rotated Knee Posture (L) Genu Valgus,(R) Genu Valgus Patellar Posture (L) Superior,(R) Superior,(L) Laterally Tilted,(R) Laterally Tilted Ankle/Foot Posture (L) Pronated,(R) Pronated Comments Posture Comments B hyperextension of knees Palpation Assessment Location L knee Palpation Details No joint line tenderness No tenderness along patella, with patellar mobility, along patellar and quad tendons, MCL , LCL, fibular head Increased tenderness and tightness along lateral distal hamstring Tightness along L quad PT-OP-K Range of Motion Start: 07/25/24 07:25 Freq: Status: Active Protocol: Document 07/25/24 10:33 NM (Rec: 07/25/24 11:23 NM [id number]) Knee Goniometric Range of Motion Knee Right Flexion Active (degrees) 125 Hyper-Extension Active 1 Left Flexion Active (degrees) 122 Extension Active (degrees) 5 Ankle and Foot Goniometric Range of Motion Ankle and Foot Right Plantarflexion 45 Inversion 30 Eversion 15 Comments neutral dorsiflexion Left Plantarflexion 45 Inversion 20 Eversion 20 Comments 2 deg under neutral dorsiflexion no pain with AROM PT-OP-L Special Tests Start: 07/25/24 07:25 Freq: Status: Active Protocol: Document 07/25/24 10:33 NM (Rec: 07/25/24 11:23 NM [id number]) Special Tests Knee Special Tests Varus Test Results - Comments 0 and 25 deg compared to LLE Valgus Test Results - Comments 0 and 25 deg compared to RLE Posterior Sag Test Results - Posterior Drawer Test Results - Anterior Drawer Test Results - Canelo's Test Results - Thessaly Test Test Results - Apley's Compression Test Results - Yancy Test Test Results + Comments clicking but not painful PT-OP-M Strength Start: 07/25/24 07:25 Freq: Status: Active Protocol: Document 07/25/24 10:33 NM (Rec: 07/25/24 11:23 NM [id number]) Hip Strength Hip Manual Muscle Testing Right Flexion (L2) 4- Good- Extension (S1) 4- Good- Abduction 4- Good- Adduction 4 Good External Rotation 4- Good- Internal Rotation 4- Good- Left Flexion (L2) 4- Good- Extension (S1) 3+ Fair+ Abduction 3+ Fair+ Adduction 4 Good External Rotation 4- Good- Internal Rotation 4- Good- Knee Strength Knee Manual Muscle Testing Right Flexion (S2) 4+ Good+ Extension (L3) 4+ Good+ Left Flexion (S2) 4- Good- Extension (L3) 4- Good- Comments No pain with resisted testing Ankle/Foot Strength Ankle and Foot Manual Muscle Testing Right Dorsiflexion (L4) 4+ Good+ Plantarflexion (S1) 4 Good Inversion 4+ Good+ Eversion (S1) 4+ Good+ Comments Plantarflexion: 5 heel raises single leg Left Dorsiflexion (L4) 4+ Good+ Plantarflexion (S1) 3 Fair Inversion 4 Good Eversion (S1) 4 Good Comments no pain with resisted inversion Plantarflexion: 3 single leg heel raises, no pain, just weaker PT-OP-T Assessment and Plan Start: 07/25/24 07:25 Freq: Status: Active Protocol: Document 07/25/24 10:33 NM (Rec: 07/25/24 16:22 NM [id number]) Physical Therapy Assessment Rehab Potential Rehabilitation Potential Good Evaluation Complexity Number of Personal Factors/Comorbidities 1-2 Number of Body Systems Impaired 1-2 Clinical Presentation at Evaluation Stable Impairments Impairments Activity Tolerance,Balance, Functional Activities, Functional Mobility,Gait,Pain, Posture,ROM,Soft Tissue Mobility,Strength,Transfers Other Concerns Barriers to Rehabilitation Pt states that she is actively looking for employment; thus, she is wanting fewer visits because she will need to be finished in August Goals Four Impairment HEP Short Term Goal (STG) Pt will report compliance with HEP 3x/wk in order to maximize progression with PT and to improve symptom management STG Duration 3 weeks Staffing And Scheduling Coordinator Goal (LTG) Pt will report compliance with HEP 3x/wk in order to promote compliance with maintenance program and to encourage better activity habits LTG Duration 6 weeks Three Impairment stairs Staffing And Scheduling Coordinator Goal (LTG) Pt will report that she has <3 /10 L knee pain when performing at least 12 stairs in order to demonstrate improved knee strength, flexibility, and symptom management LTG Duration 6 week Two Impairment squat Short Term Goal (STG) Pt will be educated on improved squat form and be able to demonstrate at least 10 B squats with <3/10 pain in L knee STG Duration 3 weeks Staffing And Scheduling Coordinator Goal (LTG) Pt will be able to perform at least 10 B squats with resistance without increase in L knee pain in order to demonstrate improved strength and functional mobility for transfers LTG Duration 6 weeks One Impairment LEFS 47/80 Staffing And Scheduling Coordinator Goal (LTG) Pt will improve LEFS score by at least 9 points (1 MCID) in order to demonstrate improved symptom management and activity tolerance LTG Duration 6 weeks Assessment Summary Assessment Pt is a 24 y.o. female presenting with L knee pain. Pain originally began several years ago with hyperextension injury; however, most current acute MOIs include twisting/ fall during soccer and falling while standing on her LLE. Pt reports occasionally locking while on stairs, but denies any buckling, catching, numbness and tingling, or other falls. She has mild limitations in L knee ROM and strength; however, she has no pain with AROM or resisted motion. Pt's symptoms reproduced only with stairs, squatting, and SLS. Pt also has increased weakness of L glutes compared to RLE. Pt only has increased L knee joint clicking with Yancy testing; all other meniscal and ligamentous tests non- provocative. She recently had radiographic imaging of her L knee in June 2024, indicating no bony abnormalities. Pt also had L ankle radiograph in June 2024 indicating small medial malleolus avulsion fracture; pt reports no pain with palpation, weight bearing, AROM, strength, por vibration testing. PT educated pt on exam findings and plan of care . Pt will be referred back to provider if L knee or ankle pain occurs/worsens. Pt would benefit from skilled PT for progressive strengthening and functional mobility training in order to improve symptom management, activity tolerance , and QOL. Physical Therapy Plan Frequency and Duration Frequency of Treatment 2x/Week Duration of treatment (weeks) 6 Plan of Care Start Date 07/25/24 Plan of Care End Date 09/05/24 Therapeutic Interventions Therapeutic Interventions Balance Training,Gait Training ,Home Exercise Program,Joint Mobilizations,Manual Therapy, Neuromuscular Re-education, Orthotic/Prosthetic Management ,Patient/Caregiver Education, Self-Care/Home Management, Sensory Integration,Soft Tissue Mobilization,Taping, Therapeutic Activities, Therapeutic Exercises Modalities Cold Pack/Ice Massage,Electric Stimulation,Hot Packs, Ultrasound,Vasopneumatic Devices Next Visit Focus/Plan Next Note Type Treatment Note Next Visit Plan Assess Beighton scale for hypermobility sidelying hip abduction, LAQ, hip 3 way, SLS. trial leg press, glute medius isometric. Squat retraining: ankle Df mobilization, knee ext position, hip mobility Address ankle/knee proprioception Manual treatment: Knee flexion mobilization, soft tissue mobilization
--- NOTE | 2024-07-25 15:55 | PT.OIE ---
Current Diagnoses Pain in left knee (07/25/24) Unspecified dyspareunia (07/25/24) Unspecified injury of left lower leg, subsequent encounter (07/25/24) Past Medical History (Last Reviewed 04/15/24 @ 19:24 by Fang Winters PA-C) Autism spectrum disorder Excessive daytime sleepiness Generalized anxiety disorder LGSIL (low grade squamous intraepithelial dysplasia) Major depressive disorder, recurrent, unspecified Morbid obesity with body mass index (BMI) of 40.0 to 49.9 Nocturnal hypoxemia Obstructive sleep apnea (~08/14/20) Popping of both knee joints Snoring Social phobia Visit Care Team Role Provider Type Diamond Plascencia MD Attending Provider Physician Family Provider Primary Care Provider Referring Provider Specialty: Family Practice [employer] Address: [address] [place] [address], [id number] Email: [email or web address] Physical Therapy Initial Evaluation PT-OP-A Visit Information Start: 07/25/24 07:25 Freq: Status: Active Protocol: Document 07/25/24 10:33 NM (Rec: 07/25/24 16:22 NM [id number]) Out-Patient Physical Therapy Visit Information Visit Information Visit Type Initial Evaluation Visit Start Time 10:35 Visit Stop Time 11:15 Visit Number [id number] Evaluation Information Evaluation Date 07/25/24 Precautions Precautions Hx of anxiety and depression PT-OP-B Current Condition Start: 07/25/24 07:25 Freq: Status: Active Protocol: Document 07/25/24 10:33 NM (Rec: 07/25/24 11:23 NM [id number]) Current Condition History of Current Condition Onset Date June 2024 History of Current Condition Pt presents with L knee pain. She reports pain with going up stairs, squatting, possible feeling like it will give out. She had a soccer injury a few weeks ago/a month ago (in June); she reports that she twisted her knee, then fell. States unable immediately weight bear. She went to the ED, did Xray and states all was fine. She reports that she was put on crutches and wore a brace (stabilization brace extension). She also reports that she had a second injury while dancing to music as few weeks later, when she stood on her L leg while kicking with her R leg, when she fell. She reports that she suddenly fell but does not know if it buckled/gave out. States that she walked using crutches and went to walk in clinic, but told to ice and rest. Pt is unsure when she stopped wearing the brace; she stopped wearing the brace/using crutches after about a week or two. Had both L knee and ankle Xray. States that MD told her she had a small fracture to very tip of medial malleolus, told to stay off of it but not given boot; reports not painful. Pt reports that she has not had a MRI or any further assessment . Pt reports that she has crackling in her knee (non- painful), no clicking/popping/ clicking/buckling. Reports that occasionally her L leg locks up when walking up stairs, but states quickly resolves without pain or other limitations. No pain when getting up from a chair, walking, standing. No pain with twisting motion in knee. Pt reports that she is unable to work due to pain, states nervous to do work. Pt reports that she has had knee pain even before her original JOSE ANTONIO, at least a year. States that her pain originally began when she extended it while walking , clicked, and it hurt for while; states went away. Thinks that it is because of her weight. States not performing any regular exercise Prior Treatments and Tests L knee radiograph 07/05: no acute bony abnormality L knee radiograph 05/05: no acute osseous abnormality, possible knee joint effusion L ankle radiograph 07/05: small avulsion fracture of the tip of the medial malleolus No previous PT for any condition Treatment Goals Patient/Caregiver Goals knee pain decreased PT-OP-C Subjective Start: 07/25/24 07:25 Freq: Status: Active Protocol: Document 07/25/24 10:33 NM (Rec: 07/25/24 11:23 NM [id number]) OP-PT Subjective Patient Comments Patient Comments pt agrees to participate in evaluation Patient Questionnaires Lower Extremity Functional Scale LEFS Score 47/80 OP-PT Pain Assessment Location L knee Pain Location Details anterior knee Intensity 3 Scale Used Numeric (0 - 10) Description Aching,Dull Frequency Occasional Pain Duration seconds Pain Aggravating Factors Standing,Stair Climbing Pain Alleviating Factors Rest PT-OP-D Balance Start: 07/25/24 07:25 Freq: Status: Active Protocol: Document 07/25/24 10:33 NM (Rec: 07/25/24 11:23 NM [id number]) Balance Tests Single Limb Standing Single Limb- Right 20 sec Single Limb- Left 5 sec (reports mild ankle pain 1/10 w/ stance) PT-OP-E Functional Tests Start: 07/25/24 07:25 Freq: Status: Active Protocol: Document 07/25/24 10:33 NM (Rec: 07/25/24 11:23 NM [id number]) Functional Tests Squat Test Score 10 Comments inc ant translation PT-OP-F Manual Assessment Start: 07/25/24 07:25 Freq: Status: Active Protocol: Document 07/25/24 10:33 NM (Rec: 07/25/24 16:22 NM [id number]) Manual Assessments Soft Tissue Assessment Soft Tissue Mobility Assessment Decreased hamstring length and heel cord length B, L>R Joint Mobility Assessment Joint Mobility Assessment Hypermobility of B knees (R>L) . Audible and palpable crepitus B. B patella located laterally, demos lateral tracking Other Manual Assessments Other Manual Assessments No palpation along L medial or lateral malleolus or along 5th metatarsal or 1st metatarsal and navicular bone No sharp pain or increased discomfort with vibration testing along L ankle/foot bony prominences and L patella PT-OP-G Mobility & Gait Start: 07/25/24 07:25 Freq: Status: Active Protocol: Document 07/25/24 10:33 NM (Rec: 07/25/24 16:22 NM [id number]) OP Gait Assessment Gait Distance (Feet) 180 Gait Deviations General Gait Pattern Wide Based Gait Factors Limiting Gait Function Factors Limiting Gait Function Decreased Activity Tolerance, Decreased Strength,Limited Range of Motion,Poor Balance Comments Gait Comments Mild decrease in stance time on LLE, no pain reported. Demos wide based stance and gait, with B hip ER and slight pronation bilaterally Stair Climbing Evaluation Evaluation Level of Assist On Stairs Independent Devices Stair Climbing Assistive Devices None Technique/Endurance Stair Climbing Direction Ascend and Descend Stair Climbing Technique Step Over Step Number of Steps Climbed 4 Stair Climbing Set # Repetitions (reps) 2 Comments Stair Climbing Comments Mild pain reported in L anterior knee and stiffness in L ankle anteriorly. Demos knee valgus, decreased tibial translation forward and decreased ankle dorsiflexion PT-OP-J Posture/Palpation/Skin Start: 07/25/24 07:25 Freq: Status: Active Protocol: Document 07/25/24 10:33 NM (Rec: 07/25/24 16:22 NM [id number]) Posture Evaluation Position Standing Head/C-Spine Posture Forward Head Arm Posture (L) Internally Rotated,(R) Internally Rotated Pelvis Posture Anteriorly Tilted Weight Distribution Weight Shifted Right Hip Posture (L) Externally Rotated,(R) Externally Rotated Knee Posture (L) Genu Valgus,(R) Genu Valgus Patellar Posture (L) Superior,(R) Superior,(L) Laterally Tilted,(R) Laterally Tilted Ankle/Foot Posture (L) Pronated,(R) Pronated Comments Posture Comments B hyperextension of knees Palpation Assessment Location L knee Palpation Details No joint line tenderness No tenderness along patella, with patellar mobility, along patellar and quad tendons, MCL , LCL, fibular head Increased tenderness and tightness along lateral distal hamstring Tightness along L quad PT-OP-K Range of Motion Start: 07/25/24 07:25 Freq: Status: Active Protocol: Document 07/25/24 10:33 NM (Rec: 07/25/24 11:23 NM [id number]) Knee Goniometric Range of Motion Knee Right Flexion Active (degrees) 125 Hyper-Extension Active 1 Left Flexion Active (degrees) 122 Extension Active (degrees) 5 Ankle and Foot Goniometric Range of Motion Ankle and Foot Right Plantarflexion 45 Inversion 30 Eversion 15 Comments neutral dorsiflexion Left Plantarflexion 45 Inversion 20 Eversion 20 Comments 2 deg under neutral dorsiflexion no pain with AROM PT-OP-L Special Tests Start: 07/25/24 07:25 Freq: Status: Active Protocol: Document 07/25/24 10:33 NM (Rec: 07/25/24 11:23 NM [id number]) Special Tests Knee Special Tests Varus Test Results - Comments 0 and 25 deg compared to LLE Valgus Test Results - Comments 0 and 25 deg compared to RLE Posterior Sag Test Results - Posterior Drawer Test Results - Anterior Drawer Test Results - Canelo's Test Results - Thessaly Test Test Results - Apley's Compression Test Results - Yancy Test Test Results + Comments clicking but not painful PT-OP-M Strength Start: 07/25/24 07:25 Freq: Status: Active Protocol: Document 07/25/24 10:33 NM (Rec: 07/25/24 11:23 NM [id number]) Hip Strength Hip Manual Muscle Testing Right Flexion (L2) 4- Good- Extension (S1) 4- Good- Abduction 4- Good- Adduction 4 Good External Rotation 4- Good- Internal Rotation 4- Good- Left Flexion (L2) 4- Good- Extension (S1) 3+ Fair+ Abduction 3+ Fair+ Adduction 4 Good External Rotation 4- Good- Internal Rotation 4- Good- Knee Strength Knee Manual Muscle Testing Right Flexion (S2) 4+ Good+ Extension (L3) 4+ Good+ Left Flexion (S2) 4- Good- Extension (L3) 4- Good- Comments No pain with resisted testing Ankle/Foot Strength Ankle and Foot Manual Muscle Testing Right Dorsiflexion (L4) 4+ Good+ Plantarflexion (S1) 4 Good Inversion 4+ Good+ Eversion (S1) 4+ Good+ Comments Plantarflexion: 5 heel raises single leg Left Dorsiflexion (L4) 4+ Good+ Plantarflexion (S1) 3 Fair Inversion 4 Good Eversion (S1) 4 Good Comments no pain with resisted inversion Plantarflexion: 3 single leg heel raises, no pain, just weaker PT-OP-T Assessment and Plan Start: 07/25/24 07:25 Freq: Status: Active Protocol: Document 07/25/24 10:33 NM (Rec: 07/25/24 16:22 NM [id number]) Physical Therapy Assessment Rehab Potential Rehabilitation Potential Good Evaluation Complexity Number of Personal Factors/Comorbidities 1-2 Number of Body Systems Impaired 1-2 Clinical Presentation at Evaluation Stable Impairments Impairments Activity Tolerance,Balance, Functional Activities, Functional Mobility,Gait,Pain, Posture,ROM,Soft Tissue Mobility,Strength,Transfers Other Concerns Barriers to Rehabilitation Pt states that she is actively looking for employment; thus, she is wanting fewer visits because she will need to be finished in August Goals Four Impairment HEP Short Term Goal (STG) Pt will report compliance with HEP 3x/wk in order to maximize progression with PT and to improve symptom management STG Duration 3 weeks Winter Intern Goal (LTG) Pt will report compliance with HEP 3x/wk in order to promote compliance with maintenance program and to encourage better activity habits LTG Duration 6 weeks Three Impairment stairs Winter Intern Goal (LTG) Pt will report that she has <3 /10 L knee pain when performing at least 12 stairs in order to demonstrate improved knee strength, flexibility, and symptom management LTG Duration 6 week Two Impairment squat Short Term Goal (STG) Pt will be educated on improved squat form and be able to demonstrate at least 10 B squats with <3/10 pain in L knee STG Duration 3 weeks Winter Intern Goal (LTG) Pt will be able to perform at least 10 B squats with resistance without increase in L knee pain in order to demonstrate improved strength and functional mobility for transfers LTG Duration 6 weeks One Impairment LEFS 47/80 Winter Intern Goal (LTG) Pt will improve LEFS score by at least 9 points (1 MCID) in order to demonstrate improved symptom management and activity tolerance LTG Duration 6 weeks Assessment Summary Assessment Pt is a 24 y.o. female presenting with L knee pain. Pain originally began several years ago with hyperextension injury; however, most current acute MOIs include twisting/ fall during soccer and falling while standing on her LLE. Pt reports occasionally locking while on stairs, but denies any buckling, catching, numbness and tingling, or other falls. She has mild limitations in L knee ROM and strength; however, she has no pain with AROM or resisted motion. Pt's symptoms reproduced only with stairs, squatting, and SLS. Pt also has increased weakness of L glutes compared to RLE. Pt only has increased L knee joint clicking with Yancy testing; all other meniscal and ligamentous tests non- provocative. She recently had radiographic imaging of her L knee in June 2024, indicating no bony abnormalities. Pt also had L ankle radiograph in June 2024 indicating small medial malleolus avulsion fracture; pt reports no pain with palpation, weight bearing, AROM, strength, por vibration testing. PT educated pt on exam findings and plan of care . Pt will be referred back to provider if L knee or ankle pain occurs/worsens. Pt would benefit from skilled PT for progressive strengthening and functional mobility training in order to improve symptom management, activity tolerance , and QOL. Physical Therapy Plan Frequency and Duration Frequency of Treatment 2x/Week Duration of treatment (weeks) 6 Plan of Care Start Date 07/25/24 Plan of Care End Date 09/05/24 Therapeutic Interventions Therapeutic Interventions Balance Training,Gait Training ,Home Exercise Program,Joint Mobilizations,Manual Therapy, Neuromuscular Re-education, Orthotic/Prosthetic Management ,Patient/Caregiver Education, Self-Care/Home Management, Sensory Integration,Soft Tissue Mobilization,Taping, Therapeutic Activities, Therapeutic Exercises Modalities Cold Pack/Ice Massage,Electric Stimulation,Hot Packs, Ultrasound,Vasopneumatic Devices Next Visit Focus/Plan Next Note Type Treatment Note Next Visit Plan Assess Beighton scale for hypermobility sidelying hip abduction, LAQ, hip 3 way, SLS. trial leg press, glute medius isometric. Squat retraining: ankle Df mobilization, knee ext position, hip mobility Address ankle/knee proprioception Manual treatment: Knee flexion mobilization, soft tissue mobilization
--- NOTE | 2024-07-28 13:25 | PT-OP ANOTE ---
NO SHOW- PT called and spoke to pt at 1325 as pt did not show up for appt. Pt states that she did not get a text reminder, but then saw one from Sunday when checking her phone messages again. PT reminded pt of upcoming appt on 07/30 and of attendance policy. Pt verbalizes agreement.
--- NOTE | 2024-07-30 16:39 | PT.OTN ---
Current Diagnoses Pain in left knee (07/30/24) Unspecified dyspareunia (07/30/24) Other lack of coordination (07/30/24) Weakness (07/30/24) Unspecified injury of left lower leg, subsequent encounter (07/30/24) Physical Therapy Treatment Note PT-OP-A Visit Information Start: 07/25/24 07:25 Freq: Status: Active Protocol: Document 07/30/24 12:58 AB (Rec: 07/30/24 14:33 AB [id number]) Out-Patient Physical Therapy Visit Information Visit Information Visit Type Treatment Note Visit Note Access Code: [email or web address] Visit Start Time 13:48 Visit Stop Time 14:32 Visit Number Evaluation Information Evaluation Date 07/25/24 Precautions Precautions Hx of anxiety and depression PT-OP-B Current Condition Start: 07/25/24 07:25 Freq: Status: Active Protocol: Document 07/25/24 10:33 NM (Rec: 07/25/24 11:23 NM [id number]) Current Condition History of Current Condition Onset Date June 2024 History of Current Condition Pt presents with L knee pain. She reports pain with going up stairs, squatting, possible feeling like it will give out. She had a soccer injury a few weeks ago/a month ago (in June); she reports that she twisted her knee, then fell. States unable immediately weight bear. She went to the ED, did Xray and states all was fine. She reports that she was put on crutches and wore a brace (stabilization brace extension). She also reports that she had a second injury while dancing to music as few weeks later, when she stood on her L leg while kicking with her R leg, when she fell. She reports that she suddenly fell but does not know if it buckled/gave out. States that she walked using crutches and went to walk in clinic, but told to ice and rest. Pt is unsure when she stopped wearing the brace; she stopped wearing the brace/using crutches after about a week or two. Had both L knee and ankle Xray. States that MD told her she had a small fracture to very tip of medial malleolus, told to stay off of it but not given boot; reports not painful. Pt reports that she has not had a MRI or any further assessment . Pt reports that she has crackling in her knee (non- painful), no clicking/popping/ clicking/buckling. Reports that occasionally her L leg locks up when walking up stairs, but states quickly resolves without pain or other limitations. No pain when getting up from a chair, walking, standing. No pain with twisting motion in knee. Pt reports that she is unable to work due to pain, states nervous to do work. Pt reports that she has had knee pain even before her original JOSE ANTONIO, at least a year. States that her pain originally began when she extended it while walking , clicked, and it hurt for while; states went away. Thinks that it is because of her weight. States not performing any regular exercise Prior Treatments and Tests L knee radiograph 07/05: no acute bony abnormality L knee radiograph 05/05: no acute osseous abnormality, possible knee joint effusion L ankle radiograph 07/05: small avulsion fracture of the tip of the medial malleolus No previous PT for any condition Treatment Goals Patient/Caregiver Goals knee pain decreased PT-OP-C Subjective Start: 07/25/24 07:25 Freq: Status: Active Protocol: Document 07/30/24 12:58 AB (Rec: 07/30/24 14:33 AB [id number]) OP-PT Subjective Patient Comments Patient Comments Patient reports the reminder text arrived on Sunday and she forgot by Sunday. Patient reports when scooting bed she sometimes pops something out of place and has to pop it back in, medial right knee. PT-OP-D Balance Start: 07/25/24 07:25 Freq: Status: Active Protocol: Document 07/25/24 10:33 NM (Rec: 07/25/24 11:23 NM [id number]) Balance Tests Single Limb Standing Single Limb- Right 20 sec Single Limb- Left 5 sec (reports mild ankle pain 1/10 w/ stance) PT-OP-E Functional Tests Start: 07/25/24 07:25 Freq: Status: Active Protocol: Document 07/25/24 10:33 NM (Rec: 07/25/24 11:23 NM [id number]) Functional Tests Squat Test Score 10 Comments inc ant translation PT-OP-F Manual Assessment Start: 07/25/24 07:25 Freq: Status: Active Protocol: Document 07/25/24 10:33 NM (Rec: 07/25/24 16:22 NM [id number]) Manual Assessments Soft Tissue Assessment Soft Tissue Mobility Assessment Decreased hamstring length and heel cord length B, L>R Joint Mobility Assessment Joint Mobility Assessment Hypermobility of B knees (R>L) . Audible and palpable crepitus B. B patella located laterally, demos lateral tracking Other Manual Assessments Other Manual Assessments No palpation along L medial or lateral malleolus or along 5th metatarsal or 1st metatarsal and navicular bone No sharp pain or increased discomfort with vibration testing along L ankle/foot bony prominences and L patella PT-OP-G Mobility & Gait Start: 07/25/24 07:25 Freq: Status: Active Protocol: Document 07/25/24 10:33 NM (Rec: 07/25/24 16:22 NM [id number]) OP Gait Assessment Gait Distance (Feet) 180 Gait Deviations General Gait Pattern Wide Based Gait Factors Limiting Gait Function Factors Limiting Gait Function Decreased Activity Tolerance, Decreased Strength,Limited Range of Motion,Poor Balance Comments Gait Comments Mild decrease in stance time on LLE, no pain reported. Demos wide based stance and gait, with B hip ER and slight pronation bilaterally Stair Climbing Evaluation Evaluation Level of Assist On Stairs Independent Devices Stair Climbing Assistive Devices None Technique/Endurance Stair Climbing Direction Ascend and Descend Stair Climbing Technique Step Over Step Number of Steps Climbed 4 Stair Climbing Set # Repetitions (reps) 2 Comments Stair Climbing Comments Mild pain reported in L anterior knee and stiffness in L ankle anteriorly. Demos knee valgus, decreased tibial translation forward and decreased ankle dorsiflexion PT-OP-J Posture/Palpation/Skin Start: 07/25/24 07:25 Freq: Status: Active Protocol: Document 07/25/24 10:33 NM (Rec: 07/25/24 16:22 NM [id number]) Posture Evaluation Position Standing Head/C-Spine Posture Forward Head Arm Posture (L) Internally Rotated,(R) Internally Rotated Pelvis Posture Anteriorly Tilted Weight Distribution Weight Shifted Right Hip Posture (L) Externally Rotated,(R) Externally Rotated Knee Posture (L) Genu Valgus,(R) Genu Valgus Patellar Posture (L) Superior,(R) Superior,(L) Laterally Tilted,(R) Laterally Tilted Ankle/Foot Posture (L) Pronated,(R) Pronated Comments Posture Comments B hyperextension of knees Palpation Assessment Location L knee Palpation Details No joint line tenderness No tenderness along patella, with patellar mobility, along patellar and quad tendons, MCL , LCL, fibular head Increased tenderness and tightness along lateral distal hamstring Tightness along L quad PT-OP-K Range of Motion Start: 07/25/24 07:25 Freq: Status: Active Protocol: Document 07/25/24 10:33 NM (Rec: 07/25/24 11:23 NM [id number]) Knee Goniometric Range of Motion Knee Right Flexion Active (degrees) 125 Hyper-Extension Active 1 Left Flexion Active (degrees) 122 Extension Active (degrees) 5 Ankle and Foot Goniometric Range of Motion Ankle and Foot Right Plantarflexion 45 Inversion 30 Eversion 15 Comments neutral dorsiflexion Left Plantarflexion 45 Inversion 20 Eversion 20 Comments 2 deg under neutral dorsiflexion no pain with AROM PT-OP-L Special Tests Start: 07/25/24 07:25 Freq: Status: Active Protocol: Document 07/25/24 10:33 NM (Rec: 07/25/24 11:23 NM [id number]) Special Tests Knee Special Tests Varus Test Results - Comments 0 and 25 deg compared to LLE Valgus Test Results - Comments 0 and 25 deg compared to RLE Posterior Sag Test Results - Posterior Drawer Test Results - Anterior Drawer Test Results - Canelo's Test Results - Thessaly Test Test Results - Apley's Compression Test Results - Yancy Test Test Results + Comments clicking but not painful PT-OP-M Strength Start: 07/25/24 07:25 Freq: Status: Active Protocol: Document 07/25/24 10:33 NM (Rec: 07/25/24 11:23 NM [id number]) Hip Strength Hip Manual Muscle Testing Right Flexion (L2) 4- Good- Extension (S1) 4- Good- Abduction 4- Good- Adduction 4 Good External Rotation 4- Good- Internal Rotation 4- Good- Left Flexion (L2) 4- Good- Extension (S1) 3+ Fair+ Abduction 3+ Fair+ Adduction 4 Good External Rotation 4- Good- Internal Rotation 4- Good- Knee Strength Knee Manual Muscle Testing Right Flexion (S2) 4+ Good+ Extension (L3) 4+ Good+ Left Flexion (S2) 4- Good- Extension (L3) 4- Good- Comments No pain with resisted testing Ankle/Foot Strength Ankle and Foot Manual Muscle Testing Right Dorsiflexion (L4) 4+ Good+ Plantarflexion (S1) 4 Good Inversion 4+ Good+ Eversion (S1) 4+ Good+ Comments Plantarflexion: 5 heel raises single leg Left Dorsiflexion (L4) 4+ Good+ Plantarflexion (S1) 3 Fair Inversion 4 Good Eversion (S1) 4 Good Comments no pain with resisted inversion Plantarflexion: 3 single leg heel raises, no pain, just weaker PT-OP-Q Treatments Start: 07/25/24 07:25 Freq: Status: Active Protocol: Document 07/30/24 12:58 AB (Rec: 07/30/24 14:33 AB [id number]) Therapeutic Exercises Sitting Exercises AROM DF Reps/Minutes X18 Comments Verbal cues seated hip abduction Sitting Exercise Name HEP Resistance level 3 [place] green band Reps/Minutes one minute hold X 1 and 15X 2 Comments verbal cues Standing Exercises Calf stretches Standing Exercise Name 1.Soleus and gastroc on MALA 2. standing at wall Side bilateral Reps/Minutes 60 sec X 2 each stretch 2. 40- 15 sec Comments Verbal and visual cues, monitored for loc of sensation of stretch Therapeutic Activity Therapeutic Activity stair training. Name 6 inch stairs multiple trials/ reps Comments Verbal cues to activate gluteal muscles when ascending and descending and to have a minimal hip hinge, repeated trials without rails ascending with rails descending. Manual Therapy Treatment Consent Patient gave verbal consent for manual Yes treatment Soft Tissue Mobilization left calf Mobilization Type Cross-Friction,Rolling Intensity/Depth Moderate Body Position Hooklying left knee Body Location lateral>medial Mobilization Type Cross-Friction,Rolling Intensity/Depth Deep Body Position Hooklying Joint Mobilizations Mulligan with movement TC mob Reps/Duration X2 X 2, then 2X 10 post STM and stretches Comments Patient reports feeling discomfort proximal fibular area, good senait post STM and stretches PT-OP-T Assessment and Plan Start: 07/25/24 07:25 Freq: Status: Active Protocol: Document 07/30/24 12:58 AB (Rec: 07/30/24 14:33 AB [id number]) Physical Therapy Assessment Goals Four Impairment HEP Short Term Goal (STG) Pt will report compliance with HEP 3x/wk in order to maximize progression with PT and to improve symptom management STG Duration 3 weeks Retirement Goal (LTG) Pt will report compliance with HEP 3x/wk in order to promote compliance with maintenance program and to encourage better activity habits LTG Duration 6 weeks Three Impairment stairs Retirement Goal (LTG) Pt will report that she has <3 /10 L knee pain when performing at least 12 stairs in order to demonstrate improved knee strength, flexibility, and symptom management LTG Duration 6 week Two Impairment squat Short Term Goal (STG) Pt will be educated on improved squat form and be able to demonstrate at least 10 B squats with <3/10 pain in L knee STG Duration 3 weeks Director Immunology Goal (LTG) Pt will be able to perform at least 10 B squats with resistance without increase in L knee pain in order to demonstrate improved strength and functional mobility for transfers LTG Duration 6 weeks One Impairment LEFS 47/80 Retirement Goal (LTG) Pt will improve LEFS score by at least 9 points (1 MCID) in order to demonstrate improved symptom management and activity tolerance LTG Duration 6 weeks Assessment Summary Assessment Patient reports less pain on stairs with increased hip hinge and activation of glutes with ascending. Good senait to MWM TC mob post manual therapy and stretches Physical Therapy Plan Frequency and Duration Frequency of Treatment 2x/Week Duration of treatment (weeks) 6 Plan of Care Start Date 07/25/24 Plan of Care End Date 09/05/24 Next Visit Focus/Plan Next Note Type Treatment Note Next Visit Plan Assess Beighton scale for hypermobility sidelying hip abduction, LAQ, hip 3 way, SLS. trial leg press, glute medius isometric. Squat retraining: ankle Df mobilization, knee ext position, hip mobility Address ankle/knee proprioception Manual treatment: Knee flexion mobilization, soft tissue mobilization,calf stretch for HEP
--- NOTE | 2024-08-05 14:34 | PT.OTN ---
Current Diagnoses Pain in left knee (08/05/24) Unspecified dyspareunia (08/05/24) Other lack of coordination (08/05/24) Weakness (08/05/24) Unspecified injury of left lower leg, subsequent encounter (08/05/24) Physical Therapy Treatment Note PT-OP-A Visit Information Start: 07/25/24 07:25 Freq: Status: Active Protocol: Document 08/05/24 13:52 SP (Rec: 08/05/24 14:34 SP [id number]) Out-Patient Physical Therapy Visit Information Visit Information Visit Type Treatment Note Visit Start Time 13:52 Visit Stop Time 14:32 Visit Number 360 Number of DESK SERGEANT Visits 1 Evaluation Information Evaluation Date 07/25/24 Precautions Precautions Hx of anxiety and depression PT-OP-B Current Condition Start: 07/25/24 07:25 Freq: Status: Active Protocol: Document 07/25/24 10:33 NM (Rec: 07/25/24 11:23 NM [id number]) Current Condition History of Current Condition Onset Date June 2024 History of Current Condition Pt presents with L knee pain. She reports pain with going up stairs, squatting, possible feeling like it will give out. She had a soccer injury a few weeks ago/a month ago (in June); she reports that she twisted her knee, then fell. States unable immediately weight bear. She went to the ED, did Xray and states all was fine. She reports that she was put on crutches and wore a brace (stabilization brace extension). She also reports that she had a second injury while dancing to music as few weeks later, when she stood on her L leg while kicking with her R leg, when she fell. She reports that she suddenly fell but does not know if it buckled/gave out. States that she walked using crutches and went to walk in clinic, but told to ice and rest. Pt is unsure when she stopped wearing the brace; she stopped wearing the brace/using crutches after about a week or two. Had both L knee and ankle Xray. States that MD told her she had a small fracture to very tip of medial malleolus, told to stay off of it but not given boot; reports not painful. Pt reports that she has not had a MRI or any further assessment . Pt reports that she has crackling in her knee (non- painful), no clicking/popping/ clicking/buckling. Reports that occasionally her L leg locks up when walking up stairs, but states quickly resolves without pain or other limitations. No pain when getting up from a chair, walking, standing. No pain with twisting motion in knee. Pt reports that she is unable to work due to pain, states nervous to do work. Pt reports that she has had knee pain even before her original JOSE ANTONIO, at least a year. States that her pain originally began when she extended it while walking , clicked, and it hurt for while; states went away. Thinks that it is because of her weight. States not performing any regular exercise Prior Treatments and Tests L knee radiograph 07/05: no acute bony abnormality L knee radiograph 05/05: no acute osseous abnormality, possible knee joint effusion L ankle radiograph 07/05: small avulsion fracture of the tip of the medial malleolus No previous PT for any condition Treatment Goals Patient/Caregiver Goals knee pain decreased PT-OP-C Subjective Start: 07/25/24 07:25 Freq: Status: Active Protocol: Document 08/05/24 13:52 SP (Rec: 08/05/24 14:34 SP [id number]) OP-PT Subjective Patient Comments Patient Comments Pt reports her L knee was hurting last tx doing stairs and did alot stairs with friend 2 days ago with pain in L knee adn when went to sit down her L ankle was hurting as well. She reports her L knee and ankle sore. PT-OP-D Balance Start: 07/25/24 07:25 Freq: Status: Active Protocol: Document 07/25/24 10:33 NM (Rec: 07/25/24 11:23 NM [id number]) Balance Tests Single Limb Standing Single Limb- Right 20 sec Single Limb- Left 5 sec (reports mild ankle pain 1/10 w/ stance) PT-OP-E Functional Tests Start: 07/25/24 07:25 Freq: Status: Active Protocol: Document 07/25/24 10:33 NM (Rec: 07/25/24 11:23 NM [id number]) Functional Tests Squat Test Score 10 Comments inc ant translation PT-OP-F Manual Assessment Start: 07/25/24 07:25 Freq: Status: Active Protocol: Document 07/25/24 10:33 NM (Rec: 07/25/24 16:22 NM [id number]) Manual Assessments Soft Tissue Assessment Soft Tissue Mobility Assessment Decreased hamstring length and heel cord length B, L>R Joint Mobility Assessment Joint Mobility Assessment Hypermobility of B knees (R>L) . Audible and palpable crepitus B. B patella located laterally, demos lateral tracking Other Manual Assessments Other Manual Assessments No palpation along L medial or lateral malleolus or along 5th metatarsal or 1st metatarsal and navicular bone No sharp pain or increased discomfort with vibration testing along L ankle/foot bony prominences and L patella PT-OP-G Mobility & Gait Start: 07/25/24 07:25 Freq: Status: Active Protocol: Document 07/25/24 10:33 NM (Rec: 07/25/24 16:22 NM [id number]) OP Gait Assessment Gait Distance (Feet) 180 Gait Deviations General Gait Pattern Wide Based Gait Factors Limiting Gait Function Factors Limiting Gait Function Decreased Activity Tolerance, Decreased Strength,Limited Range of Motion,Poor Balance Comments Gait Comments Mild decrease in stance time on LLE, no pain reported. Demos wide based stance and gait, with B hip ER and slight pronation bilaterally Stair Climbing Evaluation Evaluation Level of Assist On Stairs Independent Devices Stair Climbing Assistive Devices None Technique/Endurance Stair Climbing Direction Ascend and Descend Stair Climbing Technique Step Over Step Number of Steps Climbed 4 Stair Climbing Set # Repetitions (reps) 2 Comments Stair Climbing Comments Mild pain reported in L anterior knee and stiffness in L ankle anteriorly. Demos knee valgus, decreased tibial translation forward and decreased ankle dorsiflexion PT-OP-J Posture/Palpation/Skin Start: 07/25/24 07:25 Freq: Status: Active Protocol: Document 07/25/24 10:33 NM (Rec: 07/25/24 16:22 NM [id number]) Posture Evaluation Position Standing Head/C-Spine Posture Forward Head Arm Posture (L) Internally Rotated,(R) Internally Rotated Pelvis Posture Anteriorly Tilted Weight Distribution Weight Shifted Right Hip Posture (L) Externally Rotated,(R) Externally Rotated Knee Posture (L) Genu Valgus,(R) Genu Valgus Patellar Posture (L) Superior,(R) Superior,(L) Laterally Tilted,(R) Laterally Tilted Ankle/Foot Posture (L) Pronated,(R) Pronated Comments Posture Comments B hyperextension of knees Palpation Assessment Location L knee Palpation Details No joint line tenderness No tenderness along patella, with patellar mobility, along patellar and quad tendons, MCL , LCL, fibular head Increased tenderness and tightness along lateral distal hamstring Tightness along L quad PT-OP-K Range of Motion Start: 07/25/24 07:25 Freq: Status: Active Protocol: Document 07/25/24 10:33 NM (Rec: 07/25/24 11:23 NM [id number]) Knee Goniometric Range of Motion Knee Right Flexion Active (degrees) 125 Hyper-Extension Active 1 Left Flexion Active (degrees) 122 Extension Active (degrees) 5 Ankle and Foot Goniometric Range of Motion Ankle and Foot Right Plantarflexion 45 Inversion 30 Eversion 15 Comments neutral dorsiflexion Left Plantarflexion 45 Inversion 20 Eversion 20 Comments 2 deg under neutral dorsiflexion no pain with AROM PT-OP-L Special Tests Start: 07/25/24 07:25 Freq: Status: Active Protocol: Document 07/25/24 10:33 NM (Rec: 07/25/24 11:23 NM [id number]) Special Tests Knee Special Tests Varus Test Results - Comments 0 and 25 deg compared to LLE Valgus Test Results - Comments 0 and 25 deg compared to RLE Posterior Sag Test Results - Posterior Drawer Test Results - Anterior Drawer Test Results - Canelo's Test Results - Thessaly Test Test Results - Apley's Compression Test Results - Yancy Test Test Results + Comments clicking but not painful PT-OP-M Strength Start: 07/25/24 07:25 Freq: Status: Active Protocol: Document 07/25/24 10:33 NM (Rec: 07/25/24 11:23 NM [id number]) Hip Strength Hip Manual Muscle Testing Right Flexion (L2) 4- Good- Extension (S1) 4- Good- Abduction 4- Good- Adduction 4 Good External Rotation 4- Good- Internal Rotation 4- Good- Left Flexion (L2) 4- Good- Extension (S1) 3+ Fair+ Abduction 3+ Fair+ Adduction 4 Good External Rotation 4- Good- Internal Rotation 4- Good- Knee Strength Knee Manual Muscle Testing Right Flexion (S2) 4+ Good+ Extension (L3) 4+ Good+ Left Flexion (S2) 4- Good- Extension (L3) 4- Good- Comments No pain with resisted testing Ankle/Foot Strength Ankle and Foot Manual Muscle Testing Right Dorsiflexion (L4) 4+ Good+ Plantarflexion (S1) 4 Good Inversion 4+ Good+ Eversion (S1) 4+ Good+ Comments Plantarflexion: 5 heel raises single leg Left Dorsiflexion (L4) 4+ Good+ Plantarflexion (S1) 3 Fair Inversion 4 Good Eversion (S1) 4 Good Comments no pain with resisted inversion Plantarflexion: 3 single leg heel raises, no pain, just weaker PT-OP-Q Treatments Start: 07/25/24 07:25 Freq: Status: Active Protocol: Document 08/05/24 13:52 SP (Rec: 08/05/24 14:34 SP [id number]) Therapeutic Exercises Sidelying Exercises abduction Sidelying Exercise Name trialed in PT- added to HEP Side left Resistance AROM Reps/Minutes 2x5 reps- reports distal tendon tiring Comments cued stacked sidelying, straight trunk postiionig, TKE while lift/lower Sitting Exercises LAQ Sitting Exercise Name added to HEP Resistance AROM isometric (add TB #1 next tx) Reps/Minutes 10 SH x5 reps Comments cued painfree range approx 10 deg AROM DF Reps/Minutes X20 Comments Verbal cues seated hip abduction Sitting Exercise Name HEP reviewed Resistance level 3 [place] green band Reps/Minutes one minute hold X 1 & 15X 2 Comments cued keep feet flat on floor Standing Exercises Calf stretches Standing Exercise Name 1.Soleus and gastroc on MALA ( towel home) Side bilateral Reps/Minutes 60 sec X 2 each stretch Comments Verbal and visual cues, monitored for loc of sensation of stretch Manual Therapy Treatment Consent Patient gave verbal consent for manual Yes treatment Soft Tissue Mobilization left knee Body Location distal quad, ITB Mobilization Type Cross-Friction,Rolling Intensity/Depth Moderate Body Position Hooklying Joint Mobilizations L ankle Joint talocrual PAs Body Position Supine Comments pnfree L knee Joint prox tibia P<>As, prox fibula PA Reps/Duration hooklying Comments pnfree PT-OP-T Assessment and Plan Start: 07/25/24 07:25 Freq: Status: Active Protocol: Document 08/05/24 13:52 SP (Rec: 08/05/24 14:34 SP [id number]) Physical Therapy Assessment Goals Four Impairment HEP Short Term Goal (STG) Pt will report compliance with HEP 3x/wk in order to maximize progression with PT and to improve symptom management STG Duration 3 weeks [facility] Goal (LTG) Pt will report compliance with HEP 3x/wk in order to promote compliance with maintenance program and to encourage better activity habits LTG Duration 6 weeks Three Impairment stairs Harness Brusher Goal (LTG) Pt will report that she has <3 /10 L knee pain when performing at least 12 stairs in order to demonstrate improved knee strength, flexibility, and symptom management LTG Duration 6 week Two Impairment squat Short Term Goal (STG) Pt will be educated on improved squat form and be able to demonstrate at least 10 B squats with <3/10 pain in L knee STG Duration 3 weeks Harness Brusher Goal (LTG) Pt will be able to perform at least 10 B squats with resistance without increase in L knee pain in order to demonstrate improved strength and functional mobility for transfers LTG Duration 6 weeks One Impairment LEFS 47/80 [facility] Goal (LTG) Pt will improve LEFS score by at least 9 points (1 MCID) in order to demonstrate improved symptom management and activity tolerance LTG Duration 6 weeks Assessment Summary Assessment Pt responded well to manual. Initiated manual L knee and ankle mobiltiy for pain reduction states experiences after stair mgt last tx and at home since last tx. No reports of pain during sidelying and seated ther ex today, cues for set up and proper form. Initiated sidelying hip abd for progression hip abd strengthening to support L knee, cues required for stacked trunk alignment into top arm supported on table front of her and TKE /c DF neutral ankle positioning improves form with reps, only hip muscle tiring. GOod feedback calf stretch end tx. Ran out time to recheck stair mgt, will reassess next tx. Physical Therapy Plan Frequency and Duration Frequency of Treatment 2x/Week Duration of treatment (weeks) 6 Plan of Care Start Date 07/25/24 Plan of Care End Date 09/05/24 Therapeutic Interventions Therapeutic Interventions Balance Training,Gait Training ,Home Exercise Program,Joint Mobilizations,Manual Therapy, Neuromuscular Re-education, Orthotic/Prosthetic Management ,Patient/Caregiver Education, Self-Care/Home Management, Sensory Integration,Soft Tissue Mobilization,Taping, Therapeutic Activities, Therapeutic Exercises Modalities Cold Pack/Ice Massage,Electric Stimulation,Hot Packs, Ultrasound,Vasopneumatic Devices Next Visit Focus/Plan Next Note Type Treatment Note Next Visit Plan Assess Beighton scale for hypermobility sidelying hip abduction, LAQ, hip 3 way, SLS. trial leg press, glute medius isometric. Squat retraining: ankle Df mobilization, knee ext position, hip mobility Address ankle/knee proprioception Manual treatment: Knee flexion mobilization, soft tissue mobilization,calf stretch for HEP
--- NOTE | 2024-08-08 15:55 | PT.OTN ---
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 She reports pain with going up stairs, squatting, possible feeling like it will give out. She had a soccer injury a few weeks ago/a month ago (in June); she reports that she twisted her knee, then fell. States unable immediately weight bear. She went to the ED, did Xray and states all was fine. She reports that she was put on crutches and wore a brace (stabilization brace extension). She also reports that she had a second injury while dancing to music as few weeks later, when she stood on her L leg while kicking with her R leg, when she fell. She reports that she suddenly fell but does not know if it buckled/gave out. States that she walked using crutches and went to walk in clinic, but told to ice and rest. Pt is unsure when she stopped wearing the brace; she stopped wearing the brace/using crutches after about a week or two. Had both L knee and ankle Xray. States that MD told her she had a small fracture to very tip of medial malleolus, told to stay off of it but not given boot; reports not painful. Pt reports that she has not had a MRI or any further assessment . Pt reports that she has crackling in her knee (non- painful), no clicking/popping/ clicking/buckling. Reports that occasionally her L leg locks up when walking up stairs, but states quickly resolves without pain or other limitations. No pain when getting up from a chair, walking, standing. No pain with twisting motion in knee. Pt reports that she is unable to work due to pain, states nervous to do work. Pt reports that she has had knee pain even before her original JOSE ANTONIO, at least a year. States that her pain originally began when she extended it while walking , clicked, and it hurt for while; states went away. Thinks that it is because of her weight. States not performing any regular exercise Prior Treatments and Tests L knee radiograph 07/05: no acute bony abnormality L knee radiograph 05/05: no acute osseous abnormality, possible knee joint effusion L ankle radiograph 07/05: small avulsion fracture of the tip of the medial malleolus No previous PT for any condition Treatment Goals Patient/Caregiver Goals knee pain decreased PT-OP-C Subjective Start: 07/25/24 07:25 Freq: Status: Active Protocol: Document 08/08/24 12:58 NM (Rec: 08/08/24 13:51 NM [id number]) OP-PT Subjective Patient Comments Patient Comments Pt reports that her L knee has been bothering her when she does stairs, reports 3-4/10 if present. Pt reports that several days ago she was going down stairs reciprocally at a hockey game, reporting that her L knee and L ankle; reports hurts after the stairs when she was sitting, states achy, pt reports 5/10. Pt has concerns about how she gets into the car, since it bothers her sometimes. Reports that she usually sits then slides into car but is wanting to trial standing on her L leg while getting into car. PT-OP-D Balance Start: 07/25/24 07:25 Freq: Status: Active Protocol: Document 07/25/24 10:33 NM (Rec: 07/25/24 11:23 NM [id number]) Balance Tests Single Limb Standing Single Limb- Right 20 sec Single Limb- Left 5 sec (reports mild ankle pain 1/10 w/ stance) PT-OP-E Functional Tests Start: 07/25/24 07:25 Freq: Status: Active Protocol: Document 07/25/24 10:33 NM (Rec: 07/25/24 11:23 NM [id number]) Functional Tests Squat Test Score 10 Comments inc ant translation PT-OP-F Manual Assessment Start: 07/25/24 07:25 Freq: Status: Active Protocol: Document 07/25/24 10:33 NM (Rec: 07/25/24 16:22 NM [id number]) Manual Assessments Soft Tissue Assessment Soft Tissue Mobility Assessment Decreased hamstring length and heel cord length B, L>R Joint Mobility Assessment Joint Mobility Assessment Hypermobility of B knees (R>L) . Audible and palpable crepitus B. B patella located laterally, demos lateral tracking Other Manual Assessments Other Manual Assessments No palpation along L medial or lateral malleolus or along 5th metatarsal or 1st metatarsal and navicular bone No sharp pain or increased discomfort with vibration testing along L ankle/foot bony prominences and L patella PT-OP-G Mobility & Gait Start: 07/25/24 07:25 Freq: Status: Active Protocol: Document 07/25/24 10:33 NM (Rec: 07/25/24 16:22 NM [id number]) OP Gait Assessment Gait Distance (Feet) 180 Gait Deviations General Gait Pattern Wide Based Gait Factors Limiting Gait Function Factors Limiting Gait Function Decreased Activity Tolerance, Decreased Strength,Limited Range of Motion,Poor Balance Comments Gait Comments Mild decrease in stance time on LLE, no pain reported. Demos wide based stance and gait, with B hip ER and slight pronation bilaterally Stair Climbing Evaluation Evaluation Level of Assist On Stairs Independent Devices Stair Climbing Assistive Devices None Technique/Endurance Stair Climbing Direction Ascend and Descend Stair Climbing Technique Step Over Step Number of Steps Climbed 4 Stair Climbing Set # Repetitions (reps) 2 Comments Stair Climbing Comments Mild pain reported in L anterior knee and stiffness in L ankle anteriorly. Demos knee valgus, decreased tibial translation forward and decreased ankle dorsiflexion PT-OP-J Posture/Palpation/Skin Start: 07/25/24 07:25 Freq: Status: Active Protocol: Document 07/25/24 10:33 NM (Rec: 07/25/24 16:22 NM [id number]) Posture Evaluation Position Standing Head/C-Spine Posture Forward Head Arm Posture (L) Internally Rotated,(R) Internally Rotated Pelvis Posture Anteriorly Tilted Weight Distribution Weight Shifted Right Hip Posture (L) Externally Rotated,(R) Externally Rotated Knee Posture (L) Genu Valgus,(R) Genu Valgus Patellar Posture (L) Superior,(R) Superior,(L) Laterally Tilted,(R) Laterally Tilted Ankle/Foot Posture (L) Pronated,(R) Pronated Comments Posture Comments B hyperextension of knees Palpation Assessment Location L knee Palpation Details No joint line tenderness No tenderness along patella, with patellar mobility, along patellar and quad tendons, MCL , LCL, fibular head Increased tenderness and tightness along lateral distal hamstring Tightness along L quad PT-OP-K Range of Motion Start: 07/25/24 07:25 Freq: Status: Active Protocol: Document 07/25/24 10:33 NM (Rec: 07/25/24 11:23 NM [id number]) Knee Goniometric Range of Motion Knee Right Flexion Active (degrees) 125 Hyper-Extension Active 1 Left Flexion Active (degrees) 122 Extension Active (degrees) 5 Ankle and Foot Goniometric Range of Motion Ankle and Foot Right Plantarflexion 45 Inversion 30 Eversion 15 Comments neutral dorsiflexion Left Plantarflexion 45 Inversion 20 Eversion 20 Comments 2 deg under neutral dorsiflexion no pain with AROM PT-OP-L Special Tests Start: 07/25/24 07:25 Freq: Status: Active Protocol: Document 07/25/24 10:33 NM (Rec: 07/25/24 11:23 NM [id number]) Special Tests Knee Special Tests Varus Test Results - Comments 0 and 25 deg compared to LLE Valgus Test Results - Comments 0 and 25 deg compared to RLE Posterior Sag Test Results - Posterior Drawer Test Results - Anterior Drawer Test Results - Canelo's Test Results - Thessaly Test Test Results - Apley's Compression Test Results - Yancy Test Test Results + Comments clicking but not painful PT-OP-M Strength Start: 07/25/24 07:25 Freq: Status: Active Protocol: Document 07/25/24 10:33 NM (Rec: 07/25/24 11:23 NM [id number]) Hip Strength Hip Manual Muscle Testing Right Flexion (L2) 4- Good- Extension (S1) 4- Good- Abduction 4- Good- Adduction 4 Good External Rotation 4- Good- Internal Rotation 4- Good- Left Flexion (L2) 4- Good- Extension (S1) 3+ Fair+ Abduction 3+ Fair+ Adduction 4 Good External Rotation 4- Good- Internal Rotation 4- Good- Knee Strength Knee Manual Muscle Testing Right Flexion (S2) 4+ Good+ Extension (L3) 4+ Good+ Left Flexion (S2) 4- Good- Extension (L3) 4- Good- Comments No pain with resisted testing Ankle/Foot Strength Ankle and Foot Manual Muscle Testing Right Dorsiflexion (L4) 4+ Good+ Plantarflexion (S1) 4 Good Inversion 4+ Good+ Eversion (S1) 4+ Good+ Comments Plantarflexion: 5 heel raises single leg Left Dorsiflexion (L4) 4+ Good+ Plantarflexion (S1) 3 Fair Inversion 4 Good Eversion (S1) 4 Good Comments no pain with resisted inversion Plantarflexion: 3 single leg heel raises, no pain, just weaker PT-OP-Q Treatments Start: 07/25/24 07:25 Freq: Status: Active Protocol: Document 08/08/24 12:58 NM (Rec: 08/08/24 13:51 NM [id number]) Cardio Equipment Bicycle (Upright) Duration (Minutes) 2 Resistance 3 Seat Position 4 Other warm up; reports that the bothers her so d/c Therapeutic Exercises Sidelying Exercises abduction Side left Resistance AROM Reps/Minutes 3x5 Comments challenging; cues for alignment Sitting Exercises LAQ Sitting Exercise Name HEP review Side bilateral Resistance AROM > level 1 band at ankle Reps/Minutes 2x10x5 ea Comments audible crepitus but pain free Standing Exercises HS stretch Side bilateral Equipment Used 2nd stair step Reps/Minutes 30 ea Comments pain free; pre LAQ DF mobilization Side left Resistance with band Reps/Minutes 2 sets x5 Calf stretches Standing Exercise Name 1. gastroc, 2. gastroc in staggered stance, 3. soleus in staggered stance Side bilateral Reps/Minutes 1. 60, 2. 30 ea, 3. 30 ea Comments modified HEP to staggered stance; reports ankle discomfort w/ soleus Therapeutic Activity Therapeutic Activity car transfers Comments 1. transfer via squat backward into car in sitting position, then bring legs into car once seated. Pt performs sucessfully, PT recommended this method since low car. pt transfered out of car in reverse 2. pt attempts to transfer into car while standing on L leg while PT standing next to pt, pt holding onto top of car . While bending L knee while attempting to sit into car, pt reports knee feels like will buckle, then experiences buckling of L knee and pt falls into car sideways to R. Pt reports feeling a pop but is able to immediatly weight bear and walk several step squat training Reps/Minutes 8 minutes Comments Level 3 band at thighs to limit valgus. Cueing for hip hinge (close the car door while carrying groceries, hip abduction and no knee valgus, chest upright. Chair behind pt with pillow in chair for target. Pain free when hip hinging. Audible crepitus but denies knee pain when cued for hip abduction PT-OP-T Assessment and Plan Start: 07/25/24 07:25 Freq: Status: Active Protocol: Document 08/08/24 12:58 NM (Rec: 08/08/24 13:51 NM [id number]) Physical Therapy Assessment Goals Four Impairment HEP Short Term Goal (STG) Pt will report compliance with HEP 3x/wk in order to maximize progression with PT and to improve symptom management STG Duration 3 weeks [employer] Maker Goal (LTG) Pt will report compliance with HEP 3x/wk in order to promote compliance with maintenance program and to encourage better activity habits LTG Duration 6 weeks Three Impairment stairs [employer] Maker Goal (LTG) Pt will report that she has <3 /10 L knee pain when performing at least 12 stairs in order to demonstrate improved knee strength, flexibility, and symptom management LTG Duration 6 week Two Impairment squat Short Term Goal (STG) Pt will be educated on improved squat form and be able to demonstrate at least 10 B squats with <3/10 pain in L knee STG Duration 3 weeks [employer] Maker Goal (LTG) Pt will be able to perform at least 10 B squats with resistance without increase in L knee pain in order to demonstrate improved strength and functional mobility for transfers LTG Duration 6 weeks One Impairment LEFS 47/80 [employer] Maker Goal (LTG) Pt will improve LEFS score by at least 9 points (1 MCID) in order to demonstrate improved symptom management and activity tolerance LTG Duration 6 weeks Assessment Summary Assessment Pt tolerated session well until end. Emphasis on squat retraining and progressive strengthening, especially glutes and quads. Reviewed HEP at pt request, progressing LAQ resistance and modifying calf stretch to facilitate less discomfort on L ankle. By end of session, pt able to perform minisquat to chair without pain; demos strong valgus at knees, reduced with band and verbal cues to abduct hips which reduces initial pain symptoms. Pt has good response to ankle dorsiflexion mobilization with band. At end of session, pt had voiced concerns about car transfers especially with weight bearing on LLE while transfers. Pt demonstrated normal method of transfer when sitting without difficulty, but then attempted transfer independently while standing on L leg. However, pt fell into her car during transfer while standing on LLE due to L knee buckling, reporting a pop. PT assessed pt, no observable loss of motion at L knee except pain with knee flexion and pt reports not painful; able to weight bear immediately afterward and take several steps at her car. PT recommended that pt follow up with urgent care or ED if pain occurs again or worsens; recommended ice and elevation as needed. Physical Therapy Plan Frequency and Duration Frequency of Treatment 2x/Week Duration of treatment (weeks) 6 Plan of Care Start Date 07/25/24 Plan of Care End Date 09/05/24 Therapeutic Interventions Therapeutic Interventions Balance Training,Gait Training ,Home Exercise Program,Joint Mobilizations,Manual Therapy, Neuromuscular Re-education, Orthotic/Prosthetic Management ,Patient/Caregiver Education, Self-Care/Home Management, Sensory Integration,Soft Tissue Mobilization,Taping, Therapeutic Activities, Therapeutic Exercises Modalities Cold Pack/Ice Massage,Electric Stimulation,Hot Packs, Ultrasound,Vasopneumatic Devices Next Visit Focus/Plan Next Note Type Treatment Note Next Visit Plan Ask about knee after car transfer progress LAQ, side steps, trial step up 4. review Squat retraining: ankle Df mobilization, knee ext position, hip mobility Manual treatment: Knee flexion mobilization, soft tissue mobilization,calf stretch for HEP
--- NOTE | 2024-08-08 16:23 | PT-OP ANOTE ---
PT called to check up on pt at 0421 today regarding end of pt's session. Pt reports that her knee is ok, states only hurts if she bends it. However, she reports that she can walk. She has not had any other popping or other sensations, has not tried to recreate the feeling. PT confirmed that pt should not try to recreate the feeling. Reiterated that pt should follow up with urgent care or ED if she feels like the pain that she does have worsens. Educated to hold off on exercises tonight but pt can try exercises tomorrow. If pt has pain with exercises, educated to stop. Recommended ice and elevation as needed. Pt thanks PT for following up
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
--- NOTE | 2024-08-15 14:08 | PT.OTN ---
Current Diagnoses Pain in left knee (08/15/24) Unspecified dyspareunia (08/15/24) Other lack of coordination (08/15/24) Weakness (08/15/24) Unspecified injury of left lower leg, subsequent encounter (08/15/24) Physical Therapy Treatment Note PT-OP-A Visit Information Start: 07/25/24 07:25 Freq: Status: Active Protocol: Document 08/15/24 13:00 NM (Rec: 08/15/24 14:08 NM [id number]) Out-Patient Physical Therapy Visit Information Visit Information Visit Type Treatment Note Visit Start Time 13:00 Visit Stop Time 13:47 Visit Number [id number] Evaluation Information Evaluation Date 07/25/24 Precautions Precautions Hx of anxiety and depression PT-OP-B Current Condition Start: 07/25/24 07:25 Freq: Status: Active Protocol: Document 07/25/24 10:33 NM (Rec: 07/25/24 11:23 NM [id number]) Current Condition History of Current Condition Onset Date June 2024 History of Current Condition Pt presents with L knee pain. She reports pain with going up stairs, squatting, possible feeling like it will give out. She had a soccer injury a few weeks ago/a month ago (in June); she reports that she twisted her knee, then fell. States unable immediately weight bear. She went to the ED, did Xray and states all was fine. She reports that she was put on crutches and wore a brace (stabilization brace extension). She also reports that she had a second injury while dancing to music as few weeks later, when she stood on her L leg while kicking with her R leg, when she fell. She reports that she suddenly fell but does not know if it buckled/gave out. States that she walked using crutches and went to walk in clinic, but told to ice and rest. Pt is unsure when she stopped wearing the brace; she stopped wearing the brace/using crutches after about a week or two. Had both L knee and ankle Xray. States that MD told her she had a small fracture to very tip of medial malleolus, told to stay off of it but not given boot; reports not painful. Pt reports that she has not had a MRI or any further assessment . Pt reports that she has crackling in her knee (non- painful), no clicking/popping/ clicking/buckling. Reports that occasionally her L leg locks up when walking up stairs, but states quickly resolves without pain or other limitations. No pain when getting up from a chair, walking, standing. No pain with twisting motion in knee. Pt reports that she is unable to work due to pain, states nervous to do work. Pt reports that she has had knee pain even before her original JOSE ANTONIO, at least a year. States that her pain originally began when she extended it while walking , clicked, and it hurt for while; states went away. Thinks that it is because of her weight. States not performing any regular exercise Prior Treatments and Tests L knee radiograph 07/05: no acute bony abnormality L knee radiograph 05/05: no acute osseous abnormality, possible knee joint effusion L ankle radiograph 07/05: small avulsion fracture of the tip of the medial malleolus No previous PT for any condition Treatment Goals Patient/Caregiver Goals knee pain decreased PT-OP-C Subjective Start: 07/25/24 07:25 Freq: Status: Active Protocol: Document 08/15/24 13:00 NM (Rec: 08/15/24 14:08 NM [id number]) OP-PT Subjective Patient Comments Patient Comments Pt reports felt good after last PT session. Did stairs at [facility] on Sunday, which hurt; states still hurts , reports 4/10. She reports no pain with walking, only with stairs. States difficulty only with LAQ but states sitting on EOB. States prn ankle pain only with calf stretch. Reports no pain with STS any more or when scooting in bed; also reports that the clicking feeling (points to knee cap) that she has to put back into place has not occurred recently, which she is pleased about. PT-OP-D Balance Start: 07/25/24 07:25 Freq: Status: Active Protocol: Document 07/25/24 10:33 NM (Rec: 07/25/24 11:23 NM [id number]) Balance Tests Single Limb Standing Single Limb- Right 20 sec Single Limb- Left 5 sec (reports mild ankle pain 1/10 w/ stance) PT-OP-E Functional Tests Start: 07/25/24 07:25 Freq: Status: Active Protocol: Document 07/25/24 10:33 NM (Rec: 07/25/24 11:23 NM [id number]) Functional Tests Squat Test Score 10 Comments inc ant translation PT-OP-F Manual Assessment Start: 07/25/24 07:25 Freq: Status: Active Protocol: Document 07/25/24 10:33 NM (Rec: 07/25/24 16:22 NM [id number]) Manual Assessments Soft Tissue Assessment Soft Tissue Mobility Assessment Decreased hamstring length and heel cord length B, L>R Joint Mobility Assessment Joint Mobility Assessment Hypermobility of B knees (R>L) . Audible and palpable crepitus B. B patella located laterally, demos lateral tracking Other Manual Assessments Other Manual Assessments No palpation along L medial or lateral malleolus or along 5th metatarsal or 1st metatarsal and navicular bone No sharp pain or increased discomfort with vibration testing along L ankle/foot bony prominences and L patella PT-OP-G Mobility & Gait Start: 07/25/24 07:25 Freq: Status: Active Protocol: Document 07/25/24 10:33 NM (Rec: 07/25/24 16:22 NM [id number]) OP Gait Assessment Gait Distance (Feet) 180 Gait Deviations General Gait Pattern Wide Based Gait Factors Limiting Gait Function Factors Limiting Gait Function Decreased Activity Tolerance, Decreased Strength,Limited Range of Motion,Poor Balance Comments Gait Comments Mild decrease in stance time on LLE, no pain reported. Demos wide based stance and gait, with B hip ER and slight pronation bilaterally Stair Climbing Evaluation Evaluation Level of Assist On Stairs Independent Devices Stair Climbing Assistive Devices None Technique/Endurance Stair Climbing Direction Ascend and Descend Stair Climbing Technique Step Over Step Number of Steps Climbed 4 Stair Climbing Set # Repetitions (reps) 2 Comments Stair Climbing Comments Mild pain reported in L anterior knee and stiffness in L ankle anteriorly. Demos knee valgus, decreased tibial translation forward and decreased ankle dorsiflexion PT-OP-J Posture/Palpation/Skin Start: 07/25/24 07:25 Freq: Status: Active Protocol: Document 07/25/24 10:33 NM (Rec: 07/25/24 16:22 NM [id number]) Posture Evaluation Position Standing Head/C-Spine Posture Forward Head Arm Posture (L) Internally Rotated,(R) Internally Rotated Pelvis Posture Anteriorly Tilted Weight Distribution Weight Shifted Right Hip Posture (L) Externally Rotated,(R) Externally Rotated Knee Posture (L) Genu Valgus,(R) Genu Valgus Patellar Posture (L) Superior,(R) Superior,(L) Laterally Tilted,(R) Laterally Tilted Ankle/Foot Posture (L) Pronated,(R) Pronated Comments Posture Comments B hyperextension of knees Palpation Assessment Location L knee Palpation Details No joint line tenderness No tenderness along patella, with patellar mobility, along patellar and quad tendons, MCL , LCL, fibular head Increased tenderness and tightness along lateral distal hamstring Tightness along L quad PT-OP-K Range of Motion Start: 07/25/24 07:25 Freq: Status: Active Protocol: Document 07/25/24 10:33 NM (Rec: 07/25/24 11:23 NM [id number]) Knee Goniometric Range of Motion Knee Right Flexion Active (degrees) 125 Hyper-Extension Active 1 Left Flexion Active (degrees) 122 Extension Active (degrees) 5 Ankle and Foot Goniometric Range of Motion Ankle and Foot Right Plantarflexion 45 Inversion 30 Eversion 15 Comments neutral dorsiflexion Left Plantarflexion 45 Inversion 20 Eversion 20 Comments 2 deg under neutral dorsiflexion no pain with AROM PT-OP-L Special Tests Start: 07/25/24 07:25 Freq: Status: Active Protocol: Document 07/25/24 10:33 NM (Rec: 07/25/24 11:23 NM [id number]) Special Tests Knee Special Tests Varus Test Results - Comments 0 and 25 deg compared to LLE Valgus Test Results - Comments 0 and 25 deg compared to RLE Posterior Sag Test Results - Posterior Drawer Test Results - Anterior Drawer Test Results - Canelo's Test Results - Thessaly Test Test Results - Apley's Compression Test Results - Yancy Test Test Results + Comments clicking but not painful PT-OP-M Strength Start: 07/25/24 07:25 Freq: Status: Active Protocol: Document 07/25/24 10:33 NM (Rec: 07/25/24 11:23 NM [id number]) Hip Strength Hip Manual Muscle Testing Right Flexion (L2) 4- Good- Extension (S1) 4- Good- Abduction 4- Good- Adduction 4 Good External Rotation 4- Good- Internal Rotation 4- Good- Left Flexion (L2) 4- Good- Extension (S1) 3+ Fair+ Abduction 3+ Fair+ Adduction 4 Good External Rotation 4- Good- Internal Rotation 4- Good- Knee Strength Knee Manual Muscle Testing Right Flexion (S2) 4+ Good+ Extension (L3) 4+ Good+ Left Flexion (S2) 4- Good- Extension (L3) 4- Good- Comments No pain with resisted testing Ankle/Foot Strength Ankle and Foot Manual Muscle Testing Right Dorsiflexion (L4) 4+ Good+ Plantarflexion (S1) 4 Good Inversion 4+ Good+ Eversion (S1) 4+ Good+ Comments Plantarflexion: 5 heel raises single leg Left Dorsiflexion (L4) 4+ Good+ Plantarflexion (S1) 3 Fair Inversion 4 Good Eversion (S1) 4 Good Comments no pain with resisted inversion Plantarflexion: 3 single leg heel raises, no pain, just weaker PT-OP-Q Treatments Start: 07/25/24 07:25 Freq: Status: Active Protocol: Document 08/15/24 13:00 NM (Rec: 08/15/24 14:08 NM [id number]) Therapeutic Exercises Supine Exercises heel slide Side bilateral Reps/Minutes 10 Comments post manual tx: 115 deg > 120 deg post tx Sitting Exercises LAQ Sitting Exercise Name HEP review Side bilateral Resistance level 1 band at ankle Reps/Minutes 2x10x5 ea Comments audible crepitus but pain free ; cued neutral foot/align w/ ankle Standing Exercises hip 3 way Standing Exercise Name mild knee flex (no squat ea rep) Side bilateral Resistance level 3 band just under knees Equipment Used 2 finger support for balance on L side, none on R Reps/Minutes 2x5 ea Comments no knee pain squat Side bilateral Resistance level 3 band at thighs Equipment Used to standard chair Reps/Minutes 10 Comments pain free side steps Side bilateral Resistance level 3 band just under knees Reps/Minutes 3x15 ft ea Comments cued nuetral foot Calf stretches Standing Exercise Name gastroc stretch Side left Reps/Minutes 60 Comments cued neutral foot, move L foot slightly closer for comfort Manual Therapy Treatment Consent Patient gave verbal consent for manual Yes treatment Soft Tissue Mobilization left calf Mobilization Type Cross-Friction,Rolling Intensity/Depth Moderate Body Position Hooklying left knee Body Location distal quad, ITB, HS Mobilization Type Cross-Friction,Rolling Intensity/Depth Moderate Body Position Hooklying Comments Tenderness and palpable nodules in HS and quad, tenderness along distal HS. Reduced with STM. Educated on use of rolling pin for self- STM at home, edu that pt can also use fingers since no rolling pin Joint Mobilizations L knee Joint patellar, tibiofemoral Direction post w/ mild inf distraction Grade III Reps/Duration 10 ea Comments Improved patellar mobility PT-OP-T Assessment and Plan Start: 07/25/24 07:25 Freq: Status: Active Protocol: Document 08/15/24 13:00 NM (Rec: 08/15/24 14:08 NM [id number]) Physical Therapy Assessment Goals Four Impairment HEP Short Term Goal (STG) Pt will report compliance with HEP 3x/wk in order to maximize progression with PT and to improve symptom management 08/15/24: pt reports daily compliance with HEP STG Duration 3 weeks [facility] [employer] Team Leader Goal (LTG) Pt will report compliance with HEP 3x/wk in order to promote compliance with maintenance program and to encourage better activity habits LTG Duration 6 weeks Three Impairment stairs Skilled Nursing Goal (LTG) Pt will report that she has <3 /10 L knee pain when performing at least 12 stairs in order to demonstrate improved knee strength, flexibility, and symptom management LTG Duration 6 week Two Impairment squat Short Term Goal (STG) Pt will be educated on improved squat form and be able to demonstrate at least 10 B squats with <3/10 pain in L knee 08/15/24: pt can do 10 squats with hip hinge to standard chair, reports no knee pain; also reports no longer has pain when sit <>stand or when scootin gin bed STG Duration 3 weeks MET [employer] Team Leader Goal (LTG) Pt will be able to perform at least 10 B squats with resistance without increase in L knee pain in order to demonstrate improved strength and functional mobility for transfers LTG Duration 6 weeks One Impairment LEFS 47/80 Skilled Nursing Goal (LTG) Pt will improve LEFS score by at least 9 points (1 MCID) in order to demonstrate improved symptom management and activity tolerance LTG Duration 6 weeks Assessment Summary Assessment Pt tolerated session well, no increase in L knee pain during session. Reviewed LAQ with emphasis on knee alignment with ankle to prevent tibial and hip ER; educated to watch alignment with exercises at home as pt has tendency for both knee valgus and hip ER. Pt is pain free with squats today, demos improved form but still needs prn cues for hip hinge motion. Trialed and progressed to hip 3 way and side steps with resistance just below knee. Emphasis on limiting knee valgus and promoting semi-single leg stance. Pt met 2 STGs today. Paulette would benefit from skilled PT for progressive BLE strengthening and body mechanics training in order to improve symptom management and activity tolerance. Physical Therapy Plan Frequency and Duration Frequency of Treatment 2x/Week Duration of treatment (weeks) 6 Plan of Care Start Date 07/25/24 Plan of Care End Date 09/05/24 Therapeutic Interventions Therapeutic Interventions Balance Training,Gait Training ,Home Exercise Program,Joint Mobilizations,Manual Therapy, Neuromuscular Re-education, Orthotic/Prosthetic Management ,Patient/Caregiver Education, Self-Care/Home Management, Sensory Integration,Soft Tissue Mobilization,Taping, Therapeutic Activities, Therapeutic Exercises Modalities Cold Pack/Ice Massage,Electric Stimulation,Hot Packs, Ultrasound,Vasopneumatic Devices Next Visit Focus/Plan Next Note Type Treatment Note Next Visit Plan Review side steps and hip 3 way. trial step up 4 vs uni/ bilateral leg press at medium resistance. cont ankle Df mobilization/mobility, knee ext position, hip mobility w/ stretching Proprioception and balance- careful with single leg Manual treatment: Knee flexion mobilization, soft tissue mobilization,calf stretch for HEP
--- NOTE | 2024-08-19 16:31 | PT.OTN ---
Current Diagnoses Pain in left knee (08/19/24) Unspecified dyspareunia (08/19/24) Other lack of coordination (08/19/24) Weakness (08/19/24) Unspecified injury of left lower leg, subsequent encounter (08/19/24) Physical Therapy Treatment Note PT-OP-A Visit Information Start: 07/25/24 07:25 Freq: Status: Active Protocol: Document 08/19/24 14:24 AB (Rec: 08/19/24 16:31 AB [id number]) Out-Patient Physical Therapy Visit Information Visit Information Visit Type Treatment Note Visit Start Time 14:32 Visit Stop Time 15:16 Visit Number Evaluation Information Evaluation Date 07/25/24 Precautions Precautions Hx of anxiety and depression PT-OP-B Current Condition Start: 07/25/24 07:25 Freq: Status: Active Protocol: Document 07/25/24 10:33 NM (Rec: 07/25/24 11:23 NM [id number]) Current Condition History of Current Condition Onset Date June 2024 History of Current Condition Pt presents with L knee pain. She reports pain with going up stairs, squatting, possible feeling like it will give out. She had a soccer injury a few weeks ago/a month ago (in June); she reports that she twisted her knee, then fell. States unable immediately weight bear. She went to the ED, did Xray and states all was fine. She reports that she was put on crutches and wore a brace (stabilization brace extension). She also reports that she had a second injury while dancing to music as few weeks later, when she stood on her L leg while kicking with her R leg, when she fell. She reports that she suddenly fell but does not know if it buckled/gave out. States that she walked using crutches and went to walk in clinic, but told to ice and rest. Pt is unsure when she stopped wearing the brace; she stopped wearing the brace/using crutches after about a week or two. Had both L knee and ankle Xray. States that MD told her she had a small fracture to very tip of medial malleolus, told to stay off of it but not given boot; reports not painful. Pt reports that she has not had a MRI or any further assessment . Pt reports that she has crackling in her knee (non- painful), no clicking/popping/ clicking/buckling. Reports that occasionally her L leg locks up when walking up stairs, but states quickly resolves without pain or other limitations. No pain when getting up from a chair, walking, standing. No pain with twisting motion in knee. Pt reports that she is unable to work due to pain, states nervous to do work. Pt reports that she has had knee pain even before her original JOSE ANTONIO, at least a year. States that her pain originally began when she extended it while walking , clicked, and it hurt for while; states went away. Thinks that it is because of her weight. States not performing any regular exercise Prior Treatments and Tests L knee radiograph 07/05: no acute bony abnormality L knee radiograph 05/05: no acute osseous abnormality, possible knee joint effusion L ankle radiograph 07/05: small avulsion fracture of the tip of the medial malleolus No previous PT for any condition Treatment Goals Patient/Caregiver Goals knee pain decreased PT-OP-C Subjective Start: 07/25/24 07:25 Freq: Status: Active Protocol: Document 08/19/24 14:24 AB (Rec: 08/19/24 16:31 AB [id number]) OP-PT Subjective Patient Comments Patient Comments Patient reports she is the same. Clarencet reports having trouble with 2 of the exercises, hip 3 way and hip abduction in sidelying. PT-OP-D Balance Start: 07/25/24 07:25 Freq: Status: Active Protocol: Document 07/25/24 10:33 NM (Rec: 07/25/24 11:23 NM [id number]) Balance Tests Single Limb Standing Single Limb- Right 20 sec Single Limb- Left 5 sec (reports mild ankle pain 1/10 w/ stance) PT-OP-E Functional Tests Start: 07/25/24 07:25 Freq: Status: Active Protocol: Document 07/25/24 10:33 NM (Rec: 07/25/24 11:23 NM [id number]) Functional Tests Squat Test Score 10 Comments inc ant translation PT-OP-F Manual Assessment Start: 07/25/24 07:25 Freq: Status: Active Protocol: Document 07/25/24 10:33 NM (Rec: 07/25/24 16:22 NM [id number]) Manual Assessments Soft Tissue Assessment Soft Tissue Mobility Assessment Decreased hamstring length and heel cord length B, L>R Joint Mobility Assessment Joint Mobility Assessment Hypermobility of B knees (R>L) . Audible and palpable crepitus B. B patella located laterally, demos lateral tracking Other Manual Assessments Other Manual Assessments No palpation along L medial or lateral malleolus or along 5th metatarsal or 1st metatarsal and navicular bone No sharp pain or increased discomfort with vibration testing along L ankle/foot bony prominences and L patella PT-OP-G Mobility & Gait Start: 07/25/24 07:25 Freq: Status: Active Protocol: Document 07/25/24 10:33 NM (Rec: 07/25/24 16:22 NM [id number]) OP Gait Assessment Gait Distance (Feet) 180 Gait Deviations General Gait Pattern Wide Based Gait Factors Limiting Gait Function Factors Limiting Gait Function Decreased Activity Tolerance, Decreased Strength,Limited Range of Motion,Poor Balance Comments Gait Comments Mild decrease in stance time on LLE, no pain reported. Demos wide based stance and gait, with B hip ER and slight pronation bilaterally Stair Climbing Evaluation Evaluation Level of Assist On Stairs Independent Devices Stair Climbing Assistive Devices None Technique/Endurance Stair Climbing Direction Ascend and Descend Stair Climbing Technique Step Over Step Number of Steps Climbed 4 Stair Climbing Set # Repetitions (reps) 2 Comments Stair Climbing Comments Mild pain reported in L anterior knee and stiffness in L ankle anteriorly. Demos knee valgus, decreased tibial translation forward and decreased ankle dorsiflexion PT-OP-J Posture/Palpation/Skin Start: 07/25/24 07:25 Freq: Status: Active Protocol: Document 07/25/24 10:33 NM (Rec: 07/25/24 16:22 NM [id number]) Posture Evaluation Position Standing Head/C-Spine Posture Forward Head Arm Posture (L) Internally Rotated,(R) Internally Rotated Pelvis Posture Anteriorly Tilted Weight Distribution Weight Shifted Right Hip Posture (L) Externally Rotated,(R) Externally Rotated Knee Posture (L) Genu Valgus,(R) Genu Valgus Patellar Posture (L) Superior,(R) Superior,(L) Laterally Tilted,(R) Laterally Tilted Ankle/Foot Posture (L) Pronated,(R) Pronated Comments Posture Comments B hyperextension of knees Palpation Assessment Location L knee Palpation Details No joint line tenderness No tenderness along patella, with patellar mobility, along patellar and quad tendons, MCL , LCL, fibular head Increased tenderness and tightness along lateral distal hamstring Tightness along L quad PT-OP-K Range of Motion Start: 07/25/24 07:25 Freq: Status: Active Protocol: Document 07/25/24 10:33 NM (Rec: 07/25/24 11:23 NM [id number]) Knee Goniometric Range of Motion Knee Right Flexion Active (degrees) 125 Hyper-Extension Active 1 Left Flexion Active (degrees) 122 Extension Active (degrees) 5 Ankle and Foot Goniometric Range of Motion Ankle and Foot Right Plantarflexion 45 Inversion 30 Eversion 15 Comments neutral dorsiflexion Left Plantarflexion 45 Inversion 20 Eversion 20 Comments 2 deg under neutral dorsiflexion no pain with AROM PT-OP-L Special Tests Start: 07/25/24 07:25 Freq: Status: Active Protocol: Document 07/25/24 10:33 NM (Rec: 07/25/24 11:23 NM [id number]) Special Tests Knee Special Tests Varus Test Results - Comments 0 and 25 deg compared to LLE Valgus Test Results - Comments 0 and 25 deg compared to RLE Posterior Sag Test Results - Posterior Drawer Test Results - Anterior Drawer Test Results - Canelo's Test Results - Thessaly Test Test Results - Apley's Compression Test Results - Yancy Test Test Results + Comments clicking but not painful PT-OP-M Strength Start: 07/25/24 07:25 Freq: Status: Active Protocol: Document 07/25/24 10:33 NM (Rec: 07/25/24 11:23 NM [id number]) Hip Strength Hip Manual Muscle Testing Right Flexion (L2) 4- Good- Extension (S1) 4- Good- Abduction 4- Good- Adduction 4 Good External Rotation 4- Good- Internal Rotation 4- Good- Left Flexion (L2) 4- Good- Extension (S1) 3+ Fair+ Abduction 3+ Fair+ Adduction 4 Good External Rotation 4- Good- Internal Rotation 4- Good- Knee Strength Knee Manual Muscle Testing Right Flexion (S2) 4+ Good+ Extension (L3) 4+ Good+ Left Flexion (S2) 4- Good- Extension (L3) 4- Good- Comments No pain with resisted testing Ankle/Foot Strength Ankle and Foot Manual Muscle Testing Right Dorsiflexion (L4) 4+ Good+ Plantarflexion (S1) 4 Good Inversion 4+ Good+ Eversion (S1) 4+ Good+ Comments Plantarflexion: 5 heel raises single leg Left Dorsiflexion (L4) 4+ Good+ Plantarflexion (S1) 3 Fair Inversion 4 Good Eversion (S1) 4 Good Comments no pain with resisted inversion Plantarflexion: 3 single leg heel raises, no pain, just weaker PT-OP-Q Treatments Start: 07/25/24 07:25 Freq: Status: Active Protocol: Document 08/19/24 14:24 AB (Rec: 08/19/24 16:31 AB [id number]) Therapeutic Exercises Sidelying Exercises abduction Side left Resistance AROM Reps/Minutes X15 Comments verbal cues for trunk position Standing Exercises hip 3 way Standing Exercise Name mild knee flex (no squat ea rep) Side bilateral Resistance level 3 band just under knees Equipment Used initaited with UE support Reps/Minutes X10 right left X 2 limited by ankle pain Comments left LE senait post manual to left ankle Calf stretches Standing Exercise Name gastroc stretch, and soleus Side bilateral Reps/Minutes 60 X 2 each Comments on MALA post manual therapy Manual Therapy Treatment Soft Tissue Mobilization left calf Mobilization Type Cross-Friction,Rolling Intensity/Depth Moderate Body Position Hooklying Joint Mobilizations Mulligan with movement TC mob Joint left TC Direction AP Grade III Body Position Standing Reps/Duration 3X10 Comments monitored for pain, verbal cues Taping left knee Treatment Focus unload fat pad, improve tracking Type of Tape I strip med and lat knee distal to patella 70% pull cranially sides of pat Skin Inspection WNL Comments one I strip horizontal across patella lateral to medial 50% pull. Patient ed to remove tape in 3-5 days or immediately if skin irritation occurs. PT-OP-T Assessment and Plan Start: 07/25/24 07:25 Freq: Status: Active Protocol: Document 08/19/24 14:24 AB (Rec: 08/19/24 16:31 AB [id number]) Physical Therapy Assessment Goals Four Impairment HEP Short Term Goal (STG) Pt will report compliance with HEP 3x/wk in order to maximize progression with PT and to improve symptom management 08/15/24: pt reports daily compliance with HEP STG Duration 3 weeks MET Transfusion Nurse Goal (LTG) Pt will report compliance with HEP 3x/wk in order to promote compliance with maintenance program and to encourage better activity habits LTG Duration 6 weeks Three Impairment stairs Long-Term Goal (LTG) Pt will report that she has <3 /10 L knee pain when performing at least 12 stairs in order to demonstrate improved knee strength, flexibility, and symptom management LTG Duration 6 week Two Impairment squat Short Term Goal (STG) Pt will be educated on improved squat form and be able to demonstrate at least 10 B squats with <3/10 pain in L knee 08/15/24: pt can do 10 squats with hip hinge to standard chair, reports no knee pain; also reports no longer has pain when sit <>stand or when scootin gin bed STG Duration 3 weeks MET Transfusion Nurse Goal (LTG) Pt will be able to perform at least 10 B squats with resistance without increase in L knee pain in order to demonstrate improved strength and functional mobility for transfers LTG Duration 6 weeks One Impairment LEFS 47/80 Transfusion Nurse Goal (LTG) Pt will improve LEFS score by at least 9 points (1 MCID) in order to demonstrate improved symptom management and activity tolerance LTG Duration 6 weeks Assessment Summary Assessment Patient reports less pain ascending and descending stairs post manual therapy/ taping. Physical Therapy Plan Next Visit Focus/Plan Next Note Type Treatment Note Next Visit Plan Review side steps and hip 3 way. trial step up 4 vs uni/ bilateral leg press at medium resistance. cont ankle Df mobilization/mobility, knee ext position, hip mobility w/ stretching Proprioception and balance- careful with single leg Manual treatment: Knee flexion mobilization, soft tissue mobilization,calf stretch for HEP
--- NOTE | 2024-08-27 10:43 | PT.OTN ---
Current Diagnoses Pain in left knee (08/27/24) Unspecified dyspareunia (08/27/24) Other lack of coordination (08/27/24) Weakness (08/27/24) Unspecified injury of left lower leg, subsequent encounter (08/27/24) Physical Therapy Treatment Note PT-OP-A Visit Information Start: 07/25/24 07:25 Freq: Status: Active Protocol: Document 08/27/24 09:43 NM (Rec: 08/27/24 09:44 NM [id number]) Out-Patient Physical Therapy Visit Information Visit Information Visit Type Treatment Note Visit Start Time 10:03 Visit Stop Time 10:33 Visit Number Number of BLOCK TESTER Visits 0 Evaluation Information Evaluation Date 07/25/24 Precautions Precautions Hx of anxiety and depression PT-OP-B Current Condition Start: 07/25/24 07:25 Freq: Status: Active Protocol: Document 07/25/24 10:33 NM (Rec: 07/25/24 11:23 NM [id number]) Current Condition History of Current Condition Onset Date June 2024 History of Current Condition Pt presents with L knee pain. She reports pain with going up stairs, squatting, possible feeling like it will give out. She had a soccer injury a few weeks ago/a month ago (in June); she reports that she twisted her knee, then fell. States unable immediately weight bear. She went to the ED, did Xray and states all was fine. She reports that she was put on crutches and wore a brace (stabilization brace extension). She also reports that she had a second injury while dancing to music as few weeks later, when she stood on her L leg while kicking with her R leg, when she fell. She reports that she suddenly fell but does not know if it buckled/gave out. States that she walked using crutches and went to walk in clinic, but told to ice and rest. Pt is unsure when she stopped wearing the brace; she stopped wearing the brace/using crutches after about a week or two. Had both L knee and ankle Xray. States that MD told her she had a small fracture to very tip of medial malleolus, told to stay off of it but not given boot; reports not painful. Pt reports that she has not had a MRI or any further assessment . Pt reports that she has crackling in her knee (non- painful), no clicking/popping/ clicking/buckling. Reports that occasionally her L leg locks up when walking up stairs, but states quickly resolves without pain or other limitations. No pain when getting up from a chair, walking, standing. No pain with twisting motion in knee. Pt reports that she is unable to work due to pain, states nervous to do work. Pt reports that she has had knee pain even before her original JOSE ANTONIO, at least a year. States that her pain originally began when she extended it while walking , clicked, and it hurt for while; states went away. Thinks that it is because of her weight. States not performing any regular exercise Prior Treatments and Tests L knee radiograph 07/05: no acute bony abnormality L knee radiograph 05/05: no acute osseous abnormality, possible knee joint effusion L ankle radiograph 07/05: small avulsion fracture of the tip of the medial malleolus No previous PT for any condition Treatment Goals Patient/Caregiver Goals knee pain decreased PT-OP-C Subjective Start: 07/25/24 07:25 Freq: Status: Active Protocol: Document 08/27/24 09:43 NM (Rec: 08/27/24 09:45 NM [id number]) OP-PT Subjective Patient Comments Patient Comments Pt late to session. She reports that the tape helps until it fell off. Reports that she has pain occasionally but states no pain with stairs when taped. PT-OP-D Balance Start: 07/25/24 07:25 Freq: Status: Active Protocol: Document 07/25/24 10:33 NM (Rec: 07/25/24 11:23 NM [id number]) Balance Tests Single Limb Standing Single Limb- Right 20 sec Single Limb- Left 5 sec (reports mild ankle pain 1/10 w/ stance) PT-OP-E Functional Tests Start: 07/25/24 07:25 Freq: Status: Active Protocol: Document 07/25/24 10:33 NM (Rec: 07/25/24 11:23 NM [id number]) Functional Tests Squat Test Score 10 Comments inc ant translation PT-OP-F Manual Assessment Start: 07/25/24 07:25 Freq: Status: Active Protocol: Document 07/25/24 10:33 NM (Rec: 07/25/24 16:22 NM [id number]) Manual Assessments Soft Tissue Assessment Soft Tissue Mobility Assessment Decreased hamstring length and heel cord length B, L>R Joint Mobility Assessment Joint Mobility Assessment Hypermobility of B knees (R>L) . Audible and palpable crepitus B. B patella located laterally, demos lateral tracking Other Manual Assessments Other Manual Assessments No palpation along L medial or lateral malleolus or along 5th metatarsal or 1st metatarsal and navicular bone No sharp pain or increased discomfort with vibration testing along L ankle/foot bony prominences and L patella PT-OP-G Mobility & Gait Start: 07/25/24 07:25 Freq: Status: Active Protocol: Document 07/25/24 10:33 NM (Rec: 07/25/24 16:22 NM [id number]) OP Gait Assessment Gait Distance (Feet) 180 Gait Deviations General Gait Pattern Wide Based Gait Factors Limiting Gait Function Factors Limiting Gait Function Decreased Activity Tolerance, Decreased Strength,Limited Range of Motion,Poor Balance Comments Gait Comments Mild decrease in stance time on LLE, no pain reported. Demos wide based stance and gait, with B hip ER and slight pronation bilaterally Stair Climbing Evaluation Evaluation Level of Assist On Stairs Independent Devices Stair Climbing Assistive Devices None Technique/Endurance Stair Climbing Direction Ascend and Descend Stair Climbing Technique Step Over Step Number of Steps Climbed 4 Stair Climbing Set # Repetitions (reps) 2 Comments Stair Climbing Comments Mild pain reported in L anterior knee and stiffness in L ankle anteriorly. Demos knee valgus, decreased tibial translation forward and decreased ankle dorsiflexion PT-OP-J Posture/Palpation/Skin Start: 07/25/24 07:25 Freq: Status: Active Protocol: Document 07/25/24 10:33 NM (Rec: 07/25/24 16:22 NM [id number]) Posture Evaluation Position Standing Head/C-Spine Posture Forward Head Arm Posture (L) Internally Rotated,(R) Internally Rotated Pelvis Posture Anteriorly Tilted Weight Distribution Weight Shifted Right Hip Posture (L) Externally Rotated,(R) Externally Rotated Knee Posture (L) Genu Valgus,(R) Genu Valgus Patellar Posture (L) Superior,(R) Superior,(L) Laterally Tilted,(R) Laterally Tilted Ankle/Foot Posture (L) Pronated,(R) Pronated Comments Posture Comments B hyperextension of knees Palpation Assessment Location L knee Palpation Details No joint line tenderness No tenderness along patella, with patellar mobility, along patellar and quad tendons, MCL , LCL, fibular head Increased tenderness and tightness along lateral distal hamstring Tightness along L quad PT-OP-K Range of Motion Start: 07/25/24 07:25 Freq: Status: Active Protocol: Document 08/27/24 09:43 NM (Rec: 08/27/24 09:44 NM [id number]) Knee Goniometric Range of Motion Knee Right Flexion Active (degrees) 125 Hyper-Extension Active 1 Left Flexion Active (degrees) 122 Extension Active (degrees) 5 Comments 08/27/24: 124 deg flexion, no pain; 0 deg extension Ankle and Foot Goniometric Range of Motion Ankle and Foot Right Plantarflexion 45 Inversion 30 Eversion 15 Comments neutral dorsiflexion Left Plantarflexion 45 Inversion 20 Eversion 20 Comments 2 deg under neutral dorsiflexion no pain with AROM PT-OP-L Special Tests Start: 07/25/24 07:25 Freq: Status: Active Protocol: Document 07/25/24 10:33 NM (Rec: 07/25/24 11:23 NM [id number]) Special Tests Knee Special Tests Varus Test Results - Comments 0 and 25 deg compared to LLE Valgus Test Results - Comments 0 and 25 deg compared to RLE Posterior Sag Test Results - Posterior Drawer Test Results - Anterior Drawer Test Results - Canelo's Test Results - Thessaly Test Test Results - Apley's Compression Test Results - Yancy Test Test Results + Comments clicking but not painful PT-OP-M Strength Start: 07/25/24 07:25 Freq: Status: Active Protocol: Document 08/27/24 09:43 NM (Rec: 08/27/24 09:44 NM [id number]) Hip Strength Hip Manual Muscle Testing Right Flexion (L2) 4- Good- Extension (S1) 4- Good- Abduction 4- Good- Adduction 4 Good External Rotation 4- Good- Internal Rotation 4- Good- Left Flexion (L2) 4- Good- Extension (S1) 3+ Fair+ Abduction 3+ Fair+ Adduction 4 Good External Rotation 4- Good- Internal Rotation 4- Good- Knee Strength Knee Manual Muscle Testing Right Flexion (S2) 4+ Good+ Extension (L3) 4+ Good+ Left Flexion (S2) 4- Good- Extension (L3) 4- Good- Comments No pain with resisted testing Ankle/Foot Strength Ankle and Foot Manual Muscle Testing Right Dorsiflexion (L4) 4+ Good+ Plantarflexion (S1) 4 Good Inversion 4+ Good+ Eversion (S1) 4+ Good+ Comments Plantarflexion: 5 heel raises single leg Left Dorsiflexion (L4) 4+ Good+ Plantarflexion (S1) 3 Fair Inversion 4 Good Eversion (S1) 4 Good Comments no pain with resisted inversion Plantarflexion: 3 single leg heel raises, no pain, just weaker PT-OP-Q Treatments Start: 07/25/24 07:25 Freq: Status: Active Protocol: Document 08/27/24 09:43 NM (Rec: 08/27/24 09:45 NM [id number]) Therapeutic Exercises Sidelying Exercises quad stretch Side left Equipment Used with strap around ankle, not foot Reps/Minutes 2x30 Sitting Exercises LAQ Sitting Exercise Name HEP review Side bilateral Resistance level 1 band at ankle Reps/Minutes x15x5 ea Comments pain free; cued neutral foot/ align w/ ankle, ecc control; audible crepitus Standing Exercises calf raise Standing Exercise Name trialed: 1. gastrocnemius (HEP ), 2. soleus Equipment Used ball between ankles, hand support on counter for balance Reps/Minutes 2x10 ea Comments soleus more challenging hip 3 way Standing Exercise Name clock (12, 2, 3, 5, 6 o'clock) - HEP updated Side bilateral Resistance level 3 band just below knees Equipment Used 1 finger support for balance Reps/Minutes 5 ea foot side steps Standing Exercise Name HEP updated Side bilateral Resistance level 3 band at ankles Reps/Minutes 3x15 ft ea Comments cued nuetral foot Manual Therapy Treatment Consent Patient gave verbal consent for manual Yes treatment PT-OP-T Assessment and Plan Start: 07/25/24 07:25 Freq: Status: Active Protocol: Document 08/27/24 09:43 NM (Rec: 08/27/24 09:44 NM [id number]) Physical Therapy Assessment Goals Four Impairment HEP Short Term Goal (STG) Pt will report compliance with HEP 3x/wk in order to maximize progression with PT and to improve symptom management 08/15/24: pt reports daily compliance with HEP STG Duration 3 weeks MET Fpc Goal (LTG) Pt will report compliance with HEP 3x/wk in order to promote compliance with maintenance program and to encourage better activity habits LTG Duration 6 weeks Three Impairment stairs Psychology Associate Goal (LTG) Pt will report that she has <3 /10 L knee pain when performing at least 12 stairs in order to demonstrate improved knee strength, flexibility, and symptom management LTG Duration 6 week Two Impairment squat Short Term Goal (STG) Pt will be educated on improved squat form and be able to demonstrate at least 10 B squats with <3/10 pain in L knee 08/15/24: pt can do 10 squats with hip hinge to standard chair, reports no knee pain; also reports no longer has pain when sit <>stand or when scootin gin bed STG Duration 3 weeks MET Psychology Associate Goal (LTG) Pt will be able to perform at least 10 B squats with resistance without increase in L knee pain in order to demonstrate improved strength and functional mobility for transfers LTG Duration 6 weeks One Impairment LEFS 47/80 Fpc Goal (LTG) Pt will improve LEFS score by at least 9 points (1 MCID) in order to demonstrate improved symptom management and activity tolerance LTG Duration 6 weeks Assessment Summary Assessment Pt late to session so decreased time. Removed tape as day 5 post taping; pt does have some redness under tape site but did rip off tape with adhesive remover, she reports no redness under tape prior to taping at last session. Reviewed LAQ; cued for alignment to limit hip ER which reduces pain symptoms. Audible crepitus with knee extension. Changed hip 3 way to clock with hand support to promote better semi-single leg stability and to address HEP concerns. Demos signs of poor quad and glute control, cueing to limit knee valgus. Good response to sidelying quad stretch and progression of side steps to longer lever resistance. Pt would benefit from skilled PT for progressive strengthening in order to improve L knee stability and ability to perform stairs/knee flexion with less pain. Physical Therapy Plan Frequency and Duration Frequency of Treatment 2x/Week Duration of treatment (weeks) 6 Plan of Care Start Date 07/25/24 Plan of Care End Date 09/05/24 Therapeutic Interventions Therapeutic Interventions Balance Training,Gait Training ,Home Exercise Program,Joint Mobilizations,Manual Therapy, Neuromuscular Re-education, Orthotic/Prosthetic Management ,Patient/Caregiver Education, Self-Care/Home Management, Sensory Integration,Soft Tissue Mobilization,Taping, Therapeutic Activities, Therapeutic Exercises Modalities Cold Pack/Ice Massage,Electric Stimulation,Hot Packs, Ultrasound,Vasopneumatic Devices Next Visit Focus/Plan Next Note Type Treatment Note Next Visit Plan Retrial taping if no irritation. Step up with focus on knee valgus, leg press at low resistance, reivew G/S raises. trial SLS with support , review clock as needed. Proprioception and balance- careful with single leg Manual treatment: Knee flexion mobilization, soft tissue mobilization,calf stretch for HEP
--- NOTE | 2024-08-29 14:20 | PT.OTN ---
Current Diagnoses Pain in left knee (08/29/24) Unspecified dyspareunia (08/29/24) Other lack of coordination (08/29/24) Weakness (08/29/24) Unspecified injury of left lower leg, subsequent encounter (08/29/24) Physical Therapy Treatment Note PT-OP-A Visit Information Start: 07/25/24 07:25 Freq: Status: Active Protocol: Document 08/29/24 11:53 AB (Rec: 08/29/24 13:48 AB [id number]) Out-Patient Physical Therapy Visit Information Visit Information Visit Type Treatment Note Visit Start Time 13:03 Visit Stop Time 13:46 Visit Number Number of HAT BLOCK MAKER Visits 1 Evaluation Information Evaluation Date 07/25/24 Precautions Precautions Hx of anxiety and depression PT-OP-B Current Condition Start: 07/25/24 07:25 Freq: Status: Active Protocol: Document 07/25/24 10:33 NM (Rec: 07/25/24 11:23 NM [id number]) Current Condition History of Current Condition Onset Date June 2024 History of Current Condition Pt presents with L knee pain. She reports pain with going up stairs, squatting, possible feeling like it will give out. She had a soccer injury a few weeks ago/a month ago (in June); she reports that she twisted her knee, then fell. States unable immediately weight bear. She went to the ED, did Xray and states all was fine. She reports that she was put on crutches and wore a brace (stabilization brace extension). She also reports that she had a second injury while dancing to music as few weeks later, when she stood on her L leg while kicking with her R leg, when she fell. She reports that she suddenly fell but does not know if it buckled/gave out. States that she walked using crutches and went to walk in clinic, but told to ice and rest. Pt is unsure when she stopped wearing the brace; she stopped wearing the brace/using crutches after about a week or two. Had both L knee and ankle Xray. States that MD told her she had a small fracture to very tip of medial malleolus, told to stay off of it but not given boot; reports not painful. Pt reports that she has not had a MRI or any further assessment . Pt reports that she has crackling in her knee (non- painful), no clicking/popping/ clicking/buckling. Reports that occasionally her L leg locks up when walking up stairs, but states quickly resolves without pain or other limitations. No pain when getting up from a chair, walking, standing. No pain with twisting motion in knee. Pt reports that she is unable to work due to pain, states nervous to do work. Pt reports that she has had knee pain even before her original JOSE ANTONIO, at least a year. States that her pain originally began when she extended it while walking , clicked, and it hurt for while; states went away. Thinks that it is because of her weight. States not performing any regular exercise Prior Treatments and Tests L knee radiograph 07/05: no acute bony abnormality L knee radiograph 05/05: no acute osseous abnormality, possible knee joint effusion L ankle radiograph 07/05: small avulsion fracture of the tip of the medial malleolus No previous PT for any condition Treatment Goals Patient/Caregiver Goals knee pain decreased PT-OP-C Subjective Start: 07/25/24 07:25 Freq: Status: Active Protocol: Document 08/29/24 11:53 AB (Rec: 08/29/24 13:48 AB [id number]) OP-PT Subjective Patient Comments Patient Comments Patient reports she was able to go up stairs without pain yesterday, but descending was painful. Patient rates pain 0/ 10 ambulating into session without device. AROM 0 deg at rest to 122 deg flexion left knee start of session. 2 areas one inch by one inch med and .5 incg by 3 inch latof very light bumps/redness left knee. Patient questioning hours of operation as is applying for job that may be 8-5. PT-OP-D Balance Start: 07/25/24 07:25 Freq: Status: Active Protocol: Document 07/25/24 10:33 NM (Rec: 07/25/24 11:23 NM [id number]) Balance Tests Single Limb Standing Single Limb- Right 20 sec Single Limb- Left 5 sec (reports mild ankle pain 1/10 w/ stance) PT-OP-E Functional Tests Start: 07/25/24 07:25 Freq: Status: Active Protocol: Document 07/25/24 10:33 NM (Rec: 07/25/24 11:23 NM [id number]) Functional Tests Squat Test Score 10 Comments inc ant translation PT-OP-F Manual Assessment Start: 07/25/24 07:25 Freq: Status: Active Protocol: Document 07/25/24 10:33 NM (Rec: 07/25/24 16:22 NM [id number]) Manual Assessments Soft Tissue Assessment Soft Tissue Mobility Assessment Decreased hamstring length and heel cord length B, L>R Joint Mobility Assessment Joint Mobility Assessment Hypermobility of B knees (R>L) . Audible and palpable crepitus B. B patella located laterally, demos lateral tracking Other Manual Assessments Other Manual Assessments No palpation along L medial or lateral malleolus or along 5th metatarsal or 1st metatarsal and navicular bone No sharp pain or increased discomfort with vibration testing along L ankle/foot bony prominences and L patella PT-OP-G Mobility & Gait Start: 07/25/24 07:25 Freq: Status: Active Protocol: Document 07/25/24 10:33 NM (Rec: 07/25/24 16:22 NM [id number]) OP Gait Assessment Gait Distance (Feet) 180 Gait Deviations General Gait Pattern Wide Based Gait Factors Limiting Gait Function Factors Limiting Gait Function Decreased Activity Tolerance, Decreased Strength,Limited Range of Motion,Poor Balance Comments Gait Comments Mild decrease in stance time on LLE, no pain reported. Demos wide based stance and gait, with B hip ER and slight pronation bilaterally Stair Climbing Evaluation Evaluation Level of Assist On Stairs Independent Devices Stair Climbing Assistive Devices None Technique/Endurance Stair Climbing Direction Ascend and Descend Stair Climbing Technique Step Over Step Number of Steps Climbed 4 Stair Climbing Set # Repetitions (reps) 2 Comments Stair Climbing Comments Mild pain reported in L anterior knee and stiffness in L ankle anteriorly. Demos knee valgus, decreased tibial translation forward and decreased ankle dorsiflexion PT-OP-J Posture/Palpation/Skin Start: 07/25/24 07:25 Freq: Status: Active Protocol: Document 07/25/24 10:33 NM (Rec: 07/25/24 16:22 NM [id number]) Posture Evaluation Position Standing Head/C-Spine Posture Forward Head Arm Posture (L) Internally Rotated,(R) Internally Rotated Pelvis Posture Anteriorly Tilted Weight Distribution Weight Shifted Right Hip Posture (L) Externally Rotated,(R) Externally Rotated Knee Posture (L) Genu Valgus,(R) Genu Valgus Patellar Posture (L) Superior,(R) Superior,(L) Laterally Tilted,(R) Laterally Tilted Ankle/Foot Posture (L) Pronated,(R) Pronated Comments Posture Comments B hyperextension of knees Palpation Assessment Location L knee Palpation Details No joint line tenderness No tenderness along patella, with patellar mobility, along patellar and quad tendons, MCL , LCL, fibular head Increased tenderness and tightness along lateral distal hamstring Tightness along L quad PT-OP-K Range of Motion Start: 07/25/24 07:25 Freq: Status: Active Protocol: Document 08/27/24 09:43 NM (Rec: 08/27/24 09:44 NM [id number]) Knee Goniometric Range of Motion Knee Right Flexion Active (degrees) 125 Hyper-Extension Active 1 Left Flexion Active (degrees) 122 Extension Active (degrees) 5 Comments 08/27/24: 124 deg flexion, no pain; 0 deg extension Ankle and Foot Goniometric Range of Motion Ankle and Foot Right Plantarflexion 45 Inversion 30 Eversion 15 Comments neutral dorsiflexion Left Plantarflexion 45 Inversion 20 Eversion 20 Comments 2 deg under neutral dorsiflexion no pain with AROM PT-OP-L Special Tests Start: 07/25/24 07:25 Freq: Status: Active Protocol: Document 07/25/24 10:33 NM (Rec: 07/25/24 11:23 NM [id number]) Special Tests Knee Special Tests Varus Test Results - Comments 0 and 25 deg compared to LLE Valgus Test Results - Comments 0 and 25 deg compared to RLE Posterior Sag Test Results - Posterior Drawer Test Results - Anterior Drawer Test Results - Canelo's Test Results - Thessaly Test Test Results - Apley's Compression Test Results - Yancy Test Test Results + Comments clicking but not painful PT-OP-M Strength Start: 07/25/24 07:25 Freq: Status: Active Protocol: Document 08/27/24 09:43 NM (Rec: 08/27/24 09:44 NM [id number]) Hip Strength Hip Manual Muscle Testing Right Flexion (L2) 4- Good- Extension (S1) 4- Good- Abduction 4- Good- Adduction 4 Good External Rotation 4- Good- Internal Rotation 4- Good- Left Flexion (L2) 4- Good- Extension (S1) 3+ Fair+ Abduction 3+ Fair+ Adduction 4 Good External Rotation 4- Good- Internal Rotation 4- Good- Knee Strength Knee Manual Muscle Testing Right Flexion (S2) 4+ Good+ Extension (L3) 4+ Good+ Left Flexion (S2) 4- Good- Extension (L3) 4- Good- Comments No pain with resisted testing Ankle/Foot Strength Ankle and Foot Manual Muscle Testing Right Dorsiflexion (L4) 4+ Good+ Plantarflexion (S1) 4 Good Inversion 4+ Good+ Eversion (S1) 4+ Good+ Comments Plantarflexion: 5 heel raises single leg Left Dorsiflexion (L4) 4+ Good+ Plantarflexion (S1) 3 Fair Inversion 4 Good Eversion (S1) 4 Good Comments no pain with resisted inversion Plantarflexion: 3 single leg heel raises, no pain, just weaker PT-OP-Q Treatments Start: 07/25/24 07:25 Freq: Status: Active Protocol: Document 08/29/24 11:53 AB (Rec: 08/29/24 13:48 AB [id number]) Therapeutic Exercises Supine Exercises heel slide Supine Exercise Name 1.on green turkish ball 2. AROM HS Side bilateral Reps/Minutes 1. 2 min 2. X 10 Sitting Exercises seated hip abduction Side bilateral Resistance level 3 [place] green band Comments cued keep feet flat on floor Standing Exercises calf raise Standing Exercise Name 1. gastrocnemius (HEP), 2. soleus Equipment Used ball between ankles, UE support Reps/Minutes x15 Comments soleus more challenging Step up Standing Exercise Name 4' step facing mirror Side bilateral Resistance AROM Equipment Used right LE with tactile cues of band very light hold lat to med Reps/Minutes X6 right X 3 left Comments limited by ankle pain left LE Calf stretches Standing Exercise Name gastroc stretch, and soleus Side bilateral Reps/Minutes 60 X 2 gastroc, soleus X 1 limited by ankle pain Comments on MALA post manual therapy Manual Therapy Treatment Soft Tissue Mobilization left calf Mobilization Type Cross-Friction,Rolling Intensity/Depth Moderate Body Position Hooklying left knee Body Location distal quad, peripatallar area , lat and med knee Mobilization Type Cross-Friction,Rolling Intensity/Depth Moderate Body Position Hooklying Comments Tenderness and palpable nodules in HS and quad, tenderness along distal HS. Joint Mobilizations Mulligan with movement TC mob Joint left TC Direction AP Grade III Body Position Standing Reps/Duration X10 and X 4 Comments monitored for pain, verbal cues, limited by medial and lateral ankle pain this session PT-OP-T Assessment and Plan Start: 07/25/24 07:25 Freq: Status: Active Protocol: Document 08/29/24 11:53 AB (Rec: 08/29/24 13:48 AB [id number]) Physical Therapy Assessment Goals Four Impairment HEP Short Term Goal (STG) Pt will report compliance with HEP 3x/wk in order to maximize progression with PT and to improve symptom management 08/15/24: pt reports daily compliance with HEP STG Duration 3 weeks MET Compass Operator Goal (LTG) Pt will report compliance with HEP 3x/wk in order to promote compliance with maintenance program and to encourage better activity habits LTG Duration 6 weeks Three Impairment stairs Jail Goal (LTG) Pt will report that she has <3 /10 L knee pain when performing at least 12 stairs in order to demonstrate improved knee strength, flexibility, and symptom management LTG Duration 6 week Two Impairment squat Short Term Goal (STG) Pt will be educated on improved squat form and be able to demonstrate at least 10 B squats with <3/10 pain in L knee 08/15/24: pt can do 10 squats with hip hinge to standard chair, reports no knee pain; also reports no longer has pain when sit <>stand or when scootin gin bed STG Duration 3 weeks MET Compass Operator Goal (LTG) Pt will be able to perform at least 10 B squats with resistance without increase in L knee pain in order to demonstrate improved strength and functional mobility for transfers LTG Duration 6 weeks One Impairment LEFS 47/80 Jail Goal (LTG) Pt will improve LEFS score by at least 9 points (1 MCID) in order to demonstrate improved symptom management and activity tolerance LTG Duration 6 weeks Assessment Summary Assessment 126 deg AROM left knee flexion post manual therapy and exercise. Paulette rates left ankle pain 2/10 end of session. Physical Therapy Plan Frequency and Duration Frequency of Treatment 2x/Week Duration of treatment (weeks) 6 Plan of Care Start Date 07/25/24 Plan of Care End Date 09/05/24 Next Visit Focus/Plan Next Note Type Treatment Note Next Visit Plan Retrial taping if no irritation. Step up with focus on knee valgus, leg press at low resistance, trial SLS with support, review clock as needed. Proprioception and balance- careful with single leg Manual treatment: Knee flexion mobilization, soft tissue mobilization,
--- NOTE | 2024-09-01 13:59 | PT.OTN ---
Current Diagnoses Pain in left knee (09/01/24) Unspecified dyspareunia (09/01/24) Other lack of coordination (09/01/24) Weakness (09/01/24) Unspecified injury of left lower leg, subsequent encounter (09/01/24) Physical Therapy Treatment Note PT-OP-A Visit Information Start: 07/25/24 07:25 Freq: Status: Active Protocol: Document 09/01/24 11:29 NM (Rec: 09/01/24 12:19 NM [id number]) Out-Patient Physical Therapy Visit Information Visit Information Visit Type Progress Note Visit Start Time 11:31 Visit Stop Time 12:15 Visit Number 60 Evaluation Information Evaluation Date 07/25/24 Precautions Precautions Hx of anxiety and depression PT-OP-B Current Condition Start: 07/25/24 07:25 Freq: Status: Active Protocol: Document 07/25/24 10:33 NM (Rec: 07/25/24 11:23 NM [id number]) Current Condition History of Current Condition Onset Date June 2024 History of Current Condition Pt presents with L knee pain. She reports pain with going up stairs, squatting, possible feeling like it will give out. She had a soccer injury a few weeks ago/a month ago (in June); she reports that she twisted her knee, then fell. States unable immediately weight bear. She went to the ED, did Xray and states all was fine. She reports that she was put on crutches and wore a brace (stabilization brace extension). She also reports that she had a second injury while dancing to music as few weeks later, when she stood on her L leg while kicking with her R leg, when she fell. She reports that she suddenly fell but does not know if it buckled/gave out. States that she walked using crutches and went to walk in clinic, but told to ice and rest. Pt is unsure when she stopped wearing the brace; she stopped wearing the brace/using crutches after about a week or two. Had both L knee and ankle Xray. States that MD told her she had a small fracture to very tip of medial malleolus, told to stay off of it but not given boot; reports not painful. Pt reports that she has not had a MRI or any further assessment . Pt reports that she has crackling in her knee (non- painful), no clicking/popping/ clicking/buckling. Reports that occasionally her L leg locks up when walking up stairs, but states quickly resolves without pain or other limitations. No pain when getting up from a chair, walking, standing. No pain with twisting motion in knee. Pt reports that she is unable to work due to pain, states nervous to do work. Pt reports that she has had knee pain even before her original JOSE ANTONIO, at least a year. States that her pain originally began when she extended it while walking , clicked, and it hurt for while; states went away. Thinks that it is because of her weight. States not performing any regular exercise Prior Treatments and Tests L knee radiograph 07/05: no acute bony abnormality L knee radiograph 05/05: no acute osseous abnormality, possible knee joint effusion L ankle radiograph 07/05: small avulsion fracture of the tip of the medial malleolus No previous PT for any condition Treatment Goals Patient/Caregiver Goals knee pain decreased PT-OP-C Subjective Start: 07/25/24 07:25 Freq: Status: Active Protocol: Document 09/01/24 11:29 NM (Rec: 09/01/24 12:19 NM [id number]) OP-PT Subjective Patient Comments Patient Comments Pt reports that she felt good after last session. States that her L knee has felt better overall. No longer hurts to get up out of a chair . States that she did have clicking in her knee, states a little painful with clicking; occurred on Sunday, states in bed, had to click it back into place. Has not done stairs recently but states that she only had pain with going down stairs but not upstairs. Has been compliant with HEP PT-OP-D Balance Start: 07/25/24 07:25 Freq: Status: Active Protocol: Document 07/25/24 10:33 NM (Rec: 07/25/24 11:23 NM [id number]) Balance Tests Single Limb Standing Single Limb- Right 20 sec Single Limb- Left 5 sec (reports mild ankle pain 1/10 w/ stance) PT-OP-E Functional Tests Start: 07/25/24 07:25 Freq: Status: Active Protocol: Document 07/25/24 10:33 NM (Rec: 09/13/24 11:23 NM [id number]) Functional Tests Squat Test Score 10 Comments inc ant translation PT-OP-F Manual Assessment Start: 07/25/24 07:25 Freq: Status: Active Protocol: Document 07/25/24 10:33 NM (Rec: 07/25/24 16:22 NM [id number]) Manual Assessments Soft Tissue Assessment Soft Tissue Mobility Assessment Decreased hamstring length and heel cord length B, L>R Joint Mobility Assessment Joint Mobility Assessment Hypermobility of B knees (R>L) . Audible and palpable crepitus B. B patella located laterally, demos lateral tracking Other Manual Assessments Other Manual Assessments No palpation along L medial or lateral malleolus or along 5th metatarsal or 1st metatarsal and navicular bone No sharp pain or increased discomfort with vibration testing along L ankle/foot bony prominences and L patella PT-OP-G Mobility & Gait Start: 07/25/24 07:25 Freq: Status: Active Protocol: Document 07/25/24 10:33 NM (Rec: 07/25/24 16:22 NM [id number]) OP Gait Assessment Gait Distance (Feet) 180 Gait Deviations General Gait Pattern Wide Based Gait Factors Limiting Gait Function Factors Limiting Gait Function Decreased Activity Tolerance, Decreased Strength,Limited Range of Motion,Poor Balance Comments Gait Comments Mild decrease in stance time on LLE, no pain reported. Demos wide based stance and gait, with B hip ER and slight pronation bilaterally Stair Climbing Evaluation Evaluation Level of Assist On Stairs Independent Devices Stair Climbing Assistive Devices None Technique/Endurance Stair Climbing Direction Ascend and Descend Stair Climbing Technique Step Over Step Number of Steps Climbed 4 Stair Climbing Set # Repetitions (reps) 2 Comments Stair Climbing Comments Mild pain reported in L anterior knee and stiffness in L ankle anteriorly. Demos knee valgus, decreased tibial translation forward and decreased ankle dorsiflexion PT-OP-J Posture/Palpation/Skin Start: 07/25/24 07:25 Freq: Status: Active Protocol: Document 07/25/24 10:33 NM (Rec: 07/25/24 16:22 NM [id number]) Posture Evaluation Position Standing Head/C-Spine Posture Forward Head Arm Posture (L) Internally Rotated,(R) Internally Rotated Pelvis Posture Anteriorly Tilted Weight Distribution Weight Shifted Right Hip Posture (L) Externally Rotated,(R) Externally Rotated Knee Posture (L) Genu Valgus,(R) Genu Valgus Patellar Posture (L) Superior,(R) Superior,(L) Laterally Tilted,(R) Laterally Tilted Ankle/Foot Posture (L) Pronated,(R) Pronated Comments Posture Comments B hyperextension of knees Palpation Assessment Location L knee Palpation Details No joint line tenderness No tenderness along patella, with patellar mobility, along patellar and quad tendons, MCL , LCL, fibular head Increased tenderness and tightness along lateral distal hamstring Tightness along L quad PT-OP-K Range of Motion Start: 07/25/24 07:25 Freq: Status: Active Protocol: Document 09/01/24 11:29 NM (Rec: 09/01/24 12:19 NM [id number]) Knee Goniometric Range of Motion Knee Right Flexion Active (degrees) 125 Hyper-Extension Active 1 Left Flexion Active (degrees) 130 Extension Active (degrees) 0 Comments IE: 122 deg flex, 5 deg ext 124 deg flexion, no pain; 0 deg extension 09/01/24: 130 deg flexion, 0 deg extension; popping sensation reported at posterolateral knee with transition from flex > ext Ankle and Foot Goniometric Range of Motion Ankle and Foot Right Plantarflexion 45 Inversion 30 Eversion 15 Comments neutral dorsiflexion Left Dorsiflexion with Knee Flexed 2 Plantarflexion 50 Inversion 25 Eversion 20 Comments IE: 2 deg under neutral dorsiflexion; no pain with AROM 09/01/24: 2 deg above neutral for dorsiflexion PT-OP-L Special Tests Start: 07/25/24 07:25 Freq: Status: Active Protocol: Document 07/25/24 10:33 NM (Rec: 07/25/24 11:23 NM [id number]) Special Tests Knee Special Tests Varus Test Results - Comments 0 and 25 deg compared to LLE Valgus Test Results - Comments 0 and 25 deg compared to RLE Posterior Sag Test Results - Posterior Drawer Test Results - Anterior Drawer Test Results - Canelo's Test Results - Thessaly Test Test Results - Apley's Compression Test Results - Yancy Test Test Results + Comments clicking but not painful PT-OP-M Strength Start: 07/25/24 07:25 Freq: Status: Active Protocol: Document 09/01/24 11:29 NM (Rec: 09/01/24 12:19 NM [id number]) Hip Strength Hip Manual Muscle Testing Right Flexion (L2) 4- Good- Extension (S1) 4- Good- Abduction 4- Good- Adduction 4 Good External Rotation 4- Good- Internal Rotation 4- Good- Left Flexion (L2) 4- Good- Extension (S1) 4- Good- Abduction 4- Good- Adduction 4 Good External Rotation 4- Good- Internal Rotation 4- Good- Knee Strength Knee Manual Muscle Testing Right Flexion (S2) 4+ Good+ Extension (L3) 4+ Good+ Left Flexion (S2) 4 Good Extension (L3) 4 Good Comments No pain with resisted testing Ankle/Foot Strength Ankle and Foot Manual Muscle Testing Right Dorsiflexion (L4) 4+ Good+ Plantarflexion (S1) 4 Good Inversion 4+ Good+ Eversion (S1) 4+ Good+ Comments Plantarflexion: 5 heel raises single leg Left Dorsiflexion (L4) 4+ Good+ Plantarflexion (S1) 4 Good Inversion 4 Good Eversion (S1) 4 Good Comments no pain with resisted inversion Plantarflexion: 3 single leg heel raises, no pain, just weaker 09/01/24: plantarflexion tested in sitting; reports no pain with inversion/eversion but not normal PT-OP-Q Treatments Start: 07/25/24 07:25 Freq: Status: Active Protocol: Document 09/01/24 11:29 NM (Rec: 09/01/24 12:19 NM [id number]) Therapeutic Exercises Sitting Exercises ankle eversion Sitting Exercise Name HEP Side left Resistance level 1 band Equipment Used held under pt foot by pt Reps/Minutes 2x10 Comments cueing for form; video for phone to clarify HEP ankle inversion Sitting Exercise Name HEP Side left Resistance level 1 band Equipment Used held by PT foot, edu to tie around object at home Reps/Minutes 2x10 Comments cueing for form; video for phone to clarify HEP Standing Exercises squat Side bilateral Resistance AROM Equipment Used to standard chair Reps/Minutes 2x10 Comments no UE support; pain free in B knees; performed to 2 count Step up Standing Exercise Name stairs: 6 Side bilateral Equipment Used reciprocal, no hand support Reps/Minutes 3x4 steps Comments states no knee pain with stairs; cueing for alignment Manual Therapy Treatment Consent Patient gave verbal consent for manual Yes treatment Soft Tissue Mobilization left calf Body Location calf, anterior ankle muscles, peroneals Mobilization Type Cross-Friction,Rolling Intensity/Depth Moderate Body Position Hooklying left knee Body Location distal quad, peripatallar area , lat and med knee Mobilization Type Cross-Friction,Rolling Intensity/Depth Moderate Body Position Hooklying Comments Tenderness and palpable nodules in HS and quad, tenderness along distal HS. PT-OP-T Assessment and Plan Start: 07/25/24 07:25 Freq: Status: Active Protocol: Document 09/01/24 11:29 NM (Rec: 09/01/24 12:19 NM [id number]) Physical Therapy Assessment Goals Four Impairment HEP Short Term Goal (STG) Pt will report compliance with HEP 3x/wk in order to maximize progression with PT and to improve symptom management 08/15/24: pt reports daily compliance with HEP STG Duration 3 weeks MET Dispersion Mixer Goal (LTG) Pt will report compliance with HEP 3x/wk in order to promote compliance with maintenance program and to encourage better activity habits 09/01/24: performing HEP daily LTG Duration 6 weeks MET Three Impairment stairs Dispersion Mixer Goal (LTG) Pt will report that she has <3 /10 L knee pain when performing at least 12 stairs in order to demonstrate improved knee strength, flexibility, and symptom management 09/01/24: pt performed 12 stairs, reports no knee pain with ascending or descending 12 6 steps today w/o hand support LTG Duration 6 week MET Two Impairment squat Short Term Goal (STG) Pt will be educated on improved squat form and be able to demonstrate at least 10 B squats with <3/10 pain in L knee 08/15/24: pt can do 10 squats with hip hinge to standard chair, reports no knee pain; also reports no longer has pain when sit <>stand or when scootin gin bed STG Duration 3 weeks MET Dispersion Mixer Goal (LTG) Pt will be able to perform at least 10 B squats with resistance without increase in L knee pain in order to demonstrate improved strength and functional mobility for transfers 09/01/24: pt reports no knee pain with B squat, 10x, to standard chair LTG Duration 6 weeks MET One Impairment LEFS 47/80 Dispersion Mixer Goal (LTG) Pt will improve LEFS score by at least 9 points (1 MCID) in order to demonstrate improved symptom management and activity tolerance 09/01/24: 67/80 LTG Duration 6 weeks MET Progress Towards Goals Progress Towards Goals Goals Met Assessment Summary Assessment Pt has 130 deg L knee flexion, full extension at start of session. Performed 12 steps without UE assist and without knee/ankle pain with reciprocal patterning. Cueing for knee/toe alignment with verbal and tactile cues; knee valgus minimized with cueing. Descent less controlled than ascent. No pain with squats to standard chair. Reminder for knee-toe alignment (no band used to assess goal), cued only for hip hinge and for slower timing. Audible crepitus. Continues to demonstrate tightness in L calf and quad, reduced with manual treatment. Pt reports 1 instance of her L knee popping with transition from max knee flexion to more extended position, which is painful. PT palpated pt's knee and noted that L patella demonstrates increased lateral tracking, which is likely pop felt; recommended continuined strengthening and referral to beauty specialist to address painful popping. Pt plan of care ending at end of next session. PT and pt discussed discharge vs entending plan of care. At this time, pt will be discharged to maintenance program at next visit. Physical Therapy Plan Frequency and Duration Frequency of Treatment 2x/Week Duration of treatment (weeks) 6 Plan of Care Start Date 07/25/24 Plan of Care End Date 09/05/24 Therapeutic Interventions Therapeutic Interventions Balance Training,Gait Training ,Home Exercise Program,Joint Mobilizations,Manual Therapy, Neuromuscular Re-education, Orthotic/Prosthetic Management ,Patient/Caregiver Education, Self-Care/Home Management, Sensory Integration,Soft Tissue Mobilization,Taping, Therapeutic Activities, Therapeutic Exercises Modalities Cold Pack/Ice Massage,Electric Stimulation,Hot Packs, Ultrasound,Vasopneumatic Devices Other Referrals/Consults Referrals/Consults Recommended Pt would benefit from referral to beauty specialist for further assessment to address painful popping in knee despite overall improvement in symptoms. Next Visit Focus/Plan Next Note Type Discharge Summary Next Visit Plan Review ankle banded strengthening. monster/ sidesteps, step up/down. leg press at low resistance. Proprioception and balance- careful with single leg Manual treatment: Knee flexion mobilization, soft tissue mobilization,
--- NOTE | 2024-09-03 12:19 | PT.OTN ---
Current Diagnoses Pain in left knee (09/03/24) Unspecified dyspareunia (09/03/24) Other lack of coordination (09/03/24) Weakness (09/03/24) Unspecified injury of left lower leg, subsequent encounter (09/03/24) Physical Therapy Treatment Note PT-OP-A Visit Information Start: 07/25/24 07:25 Freq: Status: Active Protocol: Document 09/03/24 11:27 NM (Rec: 09/03/24 12:19 NM [id number]) Out-Patient Physical Therapy Visit Information Visit Information Visit Type Discharge Summary Visit Start Time 11:30 Visit Stop Time 12:15 Visit Number 60 Evaluation Information Evaluation Date 07/25/24 Precautions Precautions Hx of anxiety and depression PT-OP-B Current Condition Start: 07/25/24 07:25 Freq: Status: Active Protocol: Document 07/25/24 10:33 NM (Rec: 07/25/24 11:23 NM [id number]) Current Condition History of Current Condition Onset Date June 2024 History of Current Condition Pt presents with L knee pain. She reports pain with going up stairs, squatting, possible feeling like it will give out. She had a soccer injury a few weeks ago/a month ago (in June); she reports that she twisted her knee, then fell. States unable immediately weight bear. She went to the ED, did Xray and states all was fine. She reports that she was put on crutches and wore a brace (stabilization brace extension). She also reports that she had a second injury while dancing to music as few weeks later, when she stood on her L leg while kicking with her R leg, when she fell. She reports that she suddenly fell but does not know if it buckled/gave out. States that she walked using crutches and went to walk in clinic, but told to ice and rest. Pt is unsure when she stopped wearing the brace; she stopped wearing the brace/using crutches after about a week or two. Had both L knee and ankle Xray. States that MD told her she had a small fracture to very tip of medial malleolus, told to stay off of it but not given boot; reports not painful. Pt reports that she has not had a MRI or any further assessment . Pt reports that she has crackling in her knee (non- painful), no clicking/popping/ clicking/buckling. Reports that occasionally her L leg locks up when walking up stairs, but states quickly resolves without pain or other limitations. No pain when getting up from a chair, walking, standing. No pain with twisting motion in knee. Pt reports that she is unable to work due to pain, states nervous to do work. Pt reports that she has had knee pain even before her original JOSE ANTONIO, at least a year. States that her pain originally began when she extended it while walking , clicked, and it hurt for while; states went away. Thinks that it is because of her weight. States not performing any regular exercise Prior Treatments and Tests L knee radiograph 07/05: no acute bony abnormality L knee radiograph 05/05: no acute osseous abnormality, possible knee joint effusion L ankle radiograph 07/05: small avulsion fracture of the tip of the medial malleolus No previous PT for any condition Treatment Goals Patient/Caregiver Goals knee pain decreased PT-OP-C Subjective Start: 07/25/24 07:25 Freq: Status: Active Protocol: Document 09/03/24 11:27 NM (Rec: 09/03/24 12:19 NM [id number]) OP-PT Subjective Patient Comments Patient Comments Pt reports that she was doing well after last session. No knee pain. Brought HEP and bands. She states that she feels ready to discharge from PT today. PT-OP-D Balance Start: 07/25/24 07:25 Freq: Status: Active Protocol: Document 07/25/24 10:33 NM (Rec: 07/25/24 11:23 NM [id number]) Balance Tests Single Limb Standing Single Limb- Right 20 sec Single Limb- Left 5 sec (reports mild ankle pain 1/10 w/ stance) PT-OP-E Functional Tests Start: 07/25/24 07:25 Freq: Status: Active Protocol: Document 07/25/24 10:33 NM (Rec: 07/25/24 11:23 NM [id number]) Functional Tests Squat Test Score 10 Comments inc ant translation PT-OP-F Manual Assessment Start: 07/25/24 07:25 Freq: Status: Active Protocol: Document 07/25/24 10:33 NM (Rec: 07/25/24 16:22 NM [id number]) Manual Assessments Soft Tissue Assessment Soft Tissue Mobility Assessment Decreased hamstring length and heel cord length B, L>R Joint Mobility Assessment Joint Mobility Assessment Hypermobility of B knees (R>L) . Audible and palpable crepitus B. B patella located laterally, demos lateral tracking Other Manual Assessments Other Manual Assessments No palpation along L medial or lateral malleolus or along 5th metatarsal or 1st metatarsal and navicular bone No sharp pain or increased discomfort with vibration testing along L ankle/foot bony prominences and L patella PT-OP-G Mobility & Gait Start: 07/25/24 07:25 Freq: Status: Active Protocol: Document 07/25/24 10:33 NM (Rec: 07/25/24 16:22 NM [id number]) OP Gait Assessment Gait Distance (Feet) 180 Gait Deviations General Gait Pattern Wide Based Gait Factors Limiting Gait Function Factors Limiting Gait Function Decreased Activity Tolerance, Decreased Strength,Limited Range of Motion,Poor Balance Comments Gait Comments Mild decrease in stance time on LLE, no pain reported. Demos wide based stance and gait, with B hip ER and slight pronation bilaterally Stair Climbing Evaluation Evaluation Level of Assist On Stairs Independent Devices Stair Climbing Assistive Devices None Technique/Endurance Stair Climbing Direction Ascend and Descend Stair Climbing Technique Step Over Step Number of Steps Climbed 4 Stair Climbing Set # Repetitions (reps) 2 Comments Stair Climbing Comments Mild pain reported in L anterior knee and stiffness in L ankle anteriorly. Demos knee valgus, decreased tibial translation forward and decreased ankle dorsiflexion PT-OP-J Posture/Palpation/Skin Start: 07/25/24 07:25 Freq: Status: Active Protocol: Document 07/25/24 10:33 NM (Rec: 07/25/24 16:22 NM [id number]) Posture Evaluation Position Standing Head/C-Spine Posture Forward Head Arm Posture (L) Internally Rotated,(R) Internally Rotated Pelvis Posture Anteriorly Tilted Weight Distribution Weight Shifted Right Hip Posture (L) Externally Rotated,(R) Externally Rotated Knee Posture (L) Genu Valgus,(R) Genu Valgus Patellar Posture (L) Superior,(R) Superior,(L) Laterally Tilted,(R) Laterally Tilted Ankle/Foot Posture (L) Pronated,(R) Pronated Comments Posture Comments B hyperextension of knees Palpation Assessment Location L knee Palpation Details No joint line tenderness No tenderness along patella, with patellar mobility, along patellar and quad tendons, MCL , LCL, fibular head Increased tenderness and tightness along lateral distal hamstring Tightness along L quad PT-OP-K Range of Motion Start: 07/25/24 07:25 Freq: Status: Active Protocol: Document 09/01/24 11:29 NM (Rec: 09/01/24 12:19 NM [id number]) Knee Goniometric Range of Motion Knee Right Flexion Active (degrees) 125 Hyper-Extension Active 1 Left Flexion Active (degrees) 130 Extension Active (degrees) 0 Comments IE: 122 deg flex, 5 deg ext 124 deg flexion, no pain; 0 deg extension 09/01/24: 130 deg flexion, 0 deg extension; popping sensation reported at posterolateral knee with transition from flex > ext Ankle and Foot Goniometric Range of Motion Ankle and Foot Right Plantarflexion 45 Inversion 30 Eversion 15 Comments neutral dorsiflexion Left Dorsiflexion with Knee Flexed 2 Plantarflexion 50 Inversion 25 Eversion 20 Comments IE: 2 deg under neutral dorsiflexion; no pain with AROM 09/01/24: 2 deg above neutral for dorsiflexion PT-OP-L Special Tests Start: 07/25/24 07:25 Freq: Status: Active Protocol: Document 07/25/24 10:33 NM (Rec: 07/25/24 11:23 NM [id number]) Special Tests Knee Special Tests Varus Test Results - Comments 0 and 25 deg compared to LLE Valgus Test Results - Comments 0 and 25 deg compared to RLE Posterior Sag Test Results - Posterior Drawer Test Results - Anterior Drawer Test Results - Canelo's Test Results - Thessaly Test Test Results - Apley's Compression Test Results - Yancy Test Test Results + Comments clicking but not painful PT-OP-M Strength Start: 07/25/24 07:25 Freq: Status: Active Protocol: Document 09/01/24 11:29 NM (Rec: 09/01/24 12:19 NM [id number]) Hip Strength Hip Manual Muscle Testing Right Flexion (L2) 4- Good- Extension (S1) 4- Good- Abduction 4- Good- Adduction 4 Good External Rotation 4- Good- Internal Rotation 4- Good- Left Flexion (L2) 4- Good- Extension (S1) 4- Good- Abduction 4- Good- Adduction 4 Good External Rotation 4- Good- Internal Rotation 4- Good- Knee Strength Knee Manual Muscle Testing Right Flexion (S2) 4+ Good+ Extension (L3) 4+ Good+ Left Flexion (S2) 4 Good Extension (L3) 4 Good Comments No pain with resisted testing Ankle/Foot Strength Ankle and Foot Manual Muscle Testing Right Dorsiflexion (L4) 4+ Good+ Plantarflexion (S1) 4 Good Inversion 4+ Good+ Eversion (S1) 4+ Good+ Comments Plantarflexion: 5 heel raises single leg Left Dorsiflexion (L4) 4+ Good+ Plantarflexion (S1) 4 Good Inversion 4 Good Eversion (S1) 4 Good Comments no pain with resisted inversion Plantarflexion: 3 single leg heel raises, no pain, just weaker 09/01/24: plantarflexion tested in sitting; reports no pain with inversion/eversion but not normal PT-OP-Q Treatments Start: 07/25/24 07:25 Freq: Status: Active Protocol: Document 09/03/24 11:27 NM (Rec: 09/03/24 12:19 NM [id number]) Therapeutic Exercises Sitting Exercises ankle eversion Sitting Exercise Name HEP review Side left Resistance level 1 band Equipment Used held under pt foot by pt Reps/Minutes 3x10 Comments cueing for form; video for phone to clarify HEP ankle inversion Sitting Exercise Name HEP review Side left Resistance level 1 band Equipment Used held by PT foot, edu to tie around object at home Reps/Minutes 2x10 Comments cueing for form; video for phone to clarify HEP Standing Exercises toe raises Side bilateral Resistance AROM Equipment Used back at wall Reps/Minutes 2x10 Comments pain free; less ROM on L side heel raises Side bilateral Resistance AROM Equipment Used hand support on plinth/counter top for balance only Reps/Minutes 2x10 Comments pain free; cued more upright positioning vs forward rocking hip 3 way Standing Exercise Name clock (12, 2, 3, 5, 6 o'clock) - HEP updated Side bilateral Resistance level 3 band just below knees Equipment Used 1 finger support for balance Reps/Minutes 2x5 ea foot Comments challenging side steps Standing Exercise Name 1. side steps, 2. monster walks Side bilateral Resistance level 3 band at ankles Reps/Minutes 1. 2x15 ft ea direction, 2. 2x15 ft ea direction Calf stretches Standing Exercise Name 1. gastroc stretch, 2. soleus Side bilateral Equipment Used staggered stance at wall Reps/Minutes 60 ea Comments cueing for neutral foot position- self corrects on L Self-Care/Home Management Treatment Education Patient Education Home Exercise Program Other Education Issued level 2 and level 4 bands to pt for HEP progression with writtent instructions provided on past HEP PT-OP-T Assessment and Plan Start: 07/25/24 07:25 Freq: Status: Active Protocol: Document 09/03/24 11:27 NM (Rec: 09/03/24 12:19 NM [id number]) Physical Therapy Assessment Goals Four Impairment HEP Short Term Goal (STG) Pt will report compliance with HEP 3x/wk in order to maximize progression with PT and to improve symptom management 08/15/24: pt reports daily compliance with HEP STG Duration 3 weeks MET Retirement Goal (LTG) Pt will report compliance with HEP 3x/wk in order to promote compliance with maintenance program and to encourage better activity habits 09/01/24: performing HEP daily LTG Duration 6 weeks MET Three Impairment stairs Line Dancer Goal (LTG) Pt will report that she has <3 /10 L knee pain when performing at least 12 stairs in order to demonstrate improved knee strength, flexibility, and symptom management 09/01/24: pt performed 12 stairs, reports no knee pain with ascending or descending 12 6 steps today w/o hand support LTG Duration 6 week MET Two Impairment squat Short Term Goal (STG) Pt will be educated on improved squat form and be able to demonstrate at least 10 B squats with <3/10 pain in L knee 08/15/24: pt can do 10 squats with hip hinge to standard chair, reports no knee pain; also reports no longer has pain when sit <>stand or when scootin gin bed STG Duration 3 weeks MET Line Dancer Goal (LTG) Pt will be able to perform at least 10 B squats with resistance without increase in L knee pain in order to demonstrate improved strength and functional mobility for transfers 09/01/24: pt reports no knee pain with B squat, 10x, to standard chair LTG Duration 6 weeks MET One Impairment LEFS 47/80 Line Dancer Goal (LTG) Pt will improve LEFS score by at least 9 points (1 MCID) in order to demonstrate improved symptom management and activity tolerance 09/01/24: 67/80 LTG Duration 6 weeks MET Assessment Summary Assessment Pt tolerated session well, no knee or ankle pain. Able to progress to standing heel raises and standing ankle dorsiflexion without pain in L ankle or L knee. Pt has limitations in global ankle dorsiflexion AROM, so tibialis raises assist in foot clearance and mobility. Reviewed calf stretches for improved HEP carryover. Continued with glute strengthening via resisted stepping laterally, adding in sagittal plane monster walks with band at ankles. Did not issue monster walks because although pt does not have pain , states not comfortable performing at home. Able to do increased reps with clock drill, but still challenging for pt and requires hand assist for stability. Physical Therapy Plan Frequency and Duration Frequency of Treatment 2x/Week Duration of treatment (weeks) 6 Plan of Care Start Date 07/25/24 Plan of Care End Date 09/05/24 Therapeutic Interventions Therapeutic Interventions Balance Training,Gait Training ,Home Exercise Program,Joint Mobilizations,Manual Therapy, Neuromuscular Re-education, Orthotic/Prosthetic Management ,Patient/Caregiver Education, Self-Care/Home Management, Sensory Integration,Soft Tissue Mobilization,Taping, Therapeutic Activities, Therapeutic Exercises Modalities Cold Pack/Ice Massage,Electric Stimulation,Hot Packs, Ultrasound,Vasopneumatic Devices Other Referrals/Consults Referrals/Consults Recommended Pt would benefit from referral to communicable disease specialist for further assessment to address painful popping in knee despite overall improvement in symptoms. Next Visit Focus/Plan Next Note Type Discharge Summary Next Visit Plan discharge from PT
== END 2024-09-05 13:56 | disposition home or self-care (01) ==
LOC: PHYS 11:30
PROVIDERS: Family Provider Family Medicine; PCP Family Medicine; Referring Provider Family Medicine; Visit Provider Family Medicine
DX: S89.92XD Unspecified injury of left lower leg, subsequent encounter (principal); M25.562 Pain in left knee; N94.10 Unspecified dyspareunia; R53.1 Weakness; R27.8 Other lack of coordination
CPT/HCPCS: 97110; 97112; 97140; 97161; 97530

== ENCOUNTER → 2025-01-03 11:47 | Outpatient (CLI) | payer OTHER, SELFPAY ==
[2025-01-03 12:18] LABS: Add Manual Diff / Slide Review NO; Basophils Absolute Auto 100 /uL (0-100); Basophils Percent Auto 0.6 % (0-2); Eosinophils Absolute Auto 100 /uL (0-450); Eosinophils Percent Auto 1.4 % (2-4); Hematocrit 41.8 % (36-46); Hemoglobin 13.9 g/dL (12.0-16.0); Lymphocytes Absolute Auto 2400 /uL (1100-4500); Lymphocytes Percent Auto 28.5 % (25-40); Mean Corpuscular HGB Conc 33.2 % (30-36); Mean Corpuscular Hemoglobin 27.6 PG (26-34); Mean Corpuscular Volume 83.1 fL (80-100); Monocytes Absolute Auto 400 /uL (0-900); Monocytes Percent Auto 4.1 % (3-14); Neutrophils Absolute Auto 5600 /uL (1500-7000); Neutrophils Percent Auto 65.4 % (50-75); Platelet Count 312 X10^3/uL (150-400); Red Blood Cell Count 5.04 X10^6/uL (4.0-5.2); Red Cell Distribution Width 13.7 % (11.6-14.8); White Blood Cell Count 8.5 X10^3/uL (4.5-11.0)
[2025-01-03 13:58] LABS: Alanine Aminotransferase 27 IU/L (<35); Albumin Globulin Ratio 1.5 (1.0-2.8); Alkaline Phosphatase 97 U/L (38-126); Aspartate Aminotransferase 22 IU/L (14-36); BUN Creatinine Ratio 12.9 (6-22); Bilirubin Total 0.6 mg/dL (0.2-1.3); Blood Urea Nitrogen 9 mg/dL (7-17); Calcium 9.1 mg/dL (8.4-10.2); Carbon Dioxide 27 mmol/L (22-32); Chloride 103 mmol/L (98-107); Cholesterol 162 mg/dL (140-199); Estimated Glomerular Filt Rate > 60 mL/min (>60); Globulin 2.7 g/dL (1.7-4.1); Glucose 104 mg/dL (70-100); HDL Cholesterol 45 mg/dL (40-60); HEMOLYSIS < 15 (0-50); LDL Cholesterol Calculated 83 mg/dL (<100); Potassium 4.3 mmol/L (3.4-5.1); Sodium 138 mmol/L (137-145); Total Protein 6.7 g/dL (6.3-8.2); Triglycerides 172 mg/dL (35-150)
[2025-01-03 14:16] LABS: HCG Quantitative /Beta subunit < 2.39 mIU/mL
[2025-01-03 14:28] LABS: TSH w/ Reflex to FT4 0.88 uIU/mL (0.47-4.68)
[2025-01-03 16:56] LABS: Hemoglobin A1C% w Est Avg Glu 5.1 % (4.0-6.0)
== END ==
PROVIDERS: Family Provider Family Medicine; PCP Family Medicine; Referring Provider Family Medicine; Visit Provider Family Medicine
DX: E66.01 Morbid (severe) obesity due to excess calories (principal); G47.19 Other hypersomnia; F33.2 Major depressive disorder, recurrent severe without psychotic features; N92.6 Irregular menstruation, unspecified
CPT/HCPCS: 36415; 80053; 80061; 83036; 84443; 84702; 85025

== ENCOUNTER → 2025-04-11 11:16 | Outpatient (CLI) | payer OTHER, SELFPAY ==
[2025-04-12 15:38] LABS: C difficie Toxins A and B, EIA Negative (Negative)
== END ==
PROVIDERS: Family Provider Family Medicine; PCP Family Medicine; Referring Provider Family Medicine; Visit Provider Family Medicine
DX: R19.7 Diarrhea, unspecified (principal)
CPT/HCPCS: 87045; 87177; 87324; 87329

== ENCOUNTER → 2025-07-20 10:52 | Outpatient (CLI) | payer OTHER, SELFPAY ==
[2025-07-20 11:07] LABS: Add Manual Diff / Slide Review NO; Hematocrit 38.0 % (36-46); Hemoglobin 12.7 g/dL (12.0-16.0); Lymphocytes Absolute Auto 1000 /uL (1100-4500); Mean Corpuscular HGB Conc 33.3 % (30-36); Mean Corpuscular Hemoglobin 27.2 PG (26-34); Mean Corpuscular Volume 81.6 fL (80-100); Platelet Count 244 X10^3/uL (150-400)
[2025-07-20 11:33] LABS: Alanine Aminotransferase 28 IU/L (<35); Albumin 4.0 g/dL (3.5-5.0); Albumin Globulin Ratio 1.5 (1.0-2.8); Alkaline Phosphatase 92 U/L (38-126); Blood Urea Nitrogen 10 mg/dL (7-17); Calcium 8.7 mg/dL (8.4-10.2); Carbon Dioxide 25 mmol/L (22-32); Chloride 101 mmol/L (98-107); Estimated Glomerular Filt Rate > 60 mL/min (>60); Globulin 2.7 g/dL (1.7-4.1); Glucose 112 mg/dL (70-99); HEMOLYSIS < 15 (0-50); Potassium 4.2 mmol/L (3.4-5.1); Sodium 135 mmol/L (137-145); Total Protein 6.7 g/dL (6.3-8.2)
[2025-07-20 12:00] LABS: Follicle Stimulating Hormone 5.02 mIU/mL
[2025-07-20 12:08] LABS: Ferritin 36 ng/mL (6-137)
[2025-07-20 12:12] LABS: TSH w/ Reflex to FT4 0.91 uIU/mL (0.47-4.68)
[2025-07-20 13:32] LABS: Hemoglobin A1C% w Est Avg Glu 5.5 % (4.0-6.0)
== END ==
PROVIDERS: PCP Family Medicine; Referring Provider Family Medicine; Visit Provider Family Medicine
DX: N93.9 Abnormal uterine and vaginal bleeding, unspecified (principal); F32.81 Premenstrual dysphoric disorder; L65.9 Nonscarring hair loss, unspecified; R73.09 Other abnormal glucose
CPT/HCPCS: 36415; 80053; 82728; 83001; 83002; 83036; 84146; 84403; 84443; 85025

== ENCOUNTER → 2025-09-03 13:00 | Outpatient (CLI) | payer OTHER, SELFPAY | PROVIDERS: PCP Family Medicine; Referring Provider Family Medicine; Visit Provider Family Medicine | DX: R06.02 Shortness of breath (principal); R00.2 Palpitations | CPT/HCPCS: 93246; 94060; 94726; 94729 ==

== ENCOUNTER → 2025-09-03 13:51 | Outpatient (CLI) | payer OTHER, SELFPAY | PROVIDERS: PCP Family Medicine; Referring Provider Family Medicine; Visit Provider Family Medicine | DX: R00.2 Palpitations (principal); R06.02 Shortness of breath | CPT/HCPCS: 93246 ==

== ENCOUNTER → 2025-11-03 12:09 | Outpatient (CLI) | payer OTHER, SELFPAY ==
[2025-11-03 13:08] LABS: Add Manual Diff / Slide Review NO; Hematocrit 37.7 % (36-46); Hemoglobin 12.5 g/dL (12.0-16.0); Lymphocytes Absolute Auto 2400 /uL (1100-4500); Mean Corpuscular HGB Conc 33.2 % (30-36); Mean Corpuscular Hemoglobin 26.8 PG (26-34); Mean Corpuscular Volume 80.9 fL (80-100); Platelet Count 265 X10^3/uL (150-400)
[2025-11-03 13:22] LABS: Hemoglobin A1C% w Est Avg Glu 5.7 % (4.0-6.0)
[2025-11-03 13:33] LABS: Alanine Aminotransferase 35 IU/L (<35); Albumin 4.0 g/dL (3.5-5.0); Albumin Globulin Ratio 1.3 (1.0-2.8); Alkaline Phosphatase 98 U/L (38-126); Blood Urea Nitrogen 10 mg/dL (7-17); Calcium 9.0 mg/dL (8.4-10.2); Carbon Dioxide 29 mmol/L (22-32); Chloride 102 mmol/L (98-107); Cholesterol 159 mg/dL (140-199); Estimated Glomerular Filt Rate > 60 mL/min (>60); Globulin 3.0 g/dL (1.7-4.1); Glucose 99 mg/dL (70-99); HDL Cholesterol 47 mg/dL (40-60); HEMOLYSIS < 15 (0-50); Potassium 4.4 mmol/L (3.4-5.1); Sodium 139 mmol/L (137-145); Total Protein 7.0 g/dL (6.3-8.2); Triglycerides 177 mg/dL (35-150)
[2025-11-03 14:03] LABS: TSH w/ Reflex to FT4 2.14 uIU/mL (0.47-4.68)
[2025-11-03 14:06] LABS: Cortisol AM (Before 10AM) 2.58 ug/dL (4.46-22.7)
== END ==
PROVIDERS: PCP Family Medicine; Referring Provider Family Medicine; Visit Provider Family Medicine
DX: E16.2 Hypoglycemia, unspecified (principal); R42 Dizziness and giddiness; R53.83 Other fatigue
CPT/HCPCS: 36415; 80053; 80061; 82533; 83036; 84443; 85025